=== PATIENT | female | born 1970 | race Caucasian/White ===

== ENCOUNTER 2022-01-09 18:25 | Inpatient (IN) | payer BC, SELFPAY ==
--- NOTE | ~2022-01-09 | XR_ITS ---
EXAMINATION: XR chest 1V portable DATE: 01/14/2022 08:07 INDICATION: COVID-19 pneumonia. TECHNIQUE: A single frontal view of the chest was obtained. COMPARISON: Chest single view 01/10/2022 FINDINGS: There are airspace opacities throughout the lungs bilaterally. No pleural effusion or pneum othorax. The heart size is normal. A right upper extremity peripherally inserted central venous luciano ter (PICC) is seen with tip at the superior cavoatrial junction. Surgical clips in the right upper qu adrant are likely from cholecystectomy. Bilateral breast implants are noted. IMPRESSION: 1. Diffuse lung disease with mild worsening on the right, consistent with pneumonia versus pulmonary edema. Reviewed, dictated and finalized at location A. LARSHIP COUNSELOR IMPRESSION: 1. Diffuse lung disease with mild worsening on the right, consistent with pneum onia versus pulmonary edema.
--- NOTE | ~2022-01-09 | XR_ITS ---
EXAMINATION: XR chest PICC line DATE: 01/10/2022 18:25 INDICATION: Central line adjustment. TECHNIQUE: A single frontal view of the chest was obtained on 2 radiographs. COMPARISON: Chest single view at 6:03 PM FINDINGS: There are airspace and interstitial opacities throughout the lungs bilaterally. No pleural effusion or pneumothorax. The heart size is normal. A right upper extremity peripherally inserted micki tral venous catheter (PICC) is seen with tip in the superior vena cava. Surgical clips in the right u pper quadrant are likely from cholecystectomy. IMPRESSION: 1. PICC tip in the superior vena cava. 2. Stable diffuse lung disease, consistent with pulmonary edema versus pneumonia. Reviewed, dictated and finalized at location E. RY DRIER FEEDER IMPRESSION: 1. PICC tip in the superior vena cava. 2. Stable diffuse lung disease, consistent with pulmonary edema versus pneumoni a.
--- NOTE | ~2022-01-09 | XR_ITS ---
XR chest 1V portable 01/27/2022 05:20 Indication: CovidPneumonia Procedure: AP portable chest Comparison: Comparison to multiple prior studies sequentially, with oldest reviewed study dated 01/14. Findings: PICC line tip in the SVC. Diffuse bilateral airspace disease unchanged. No significant effu erica or pneumothorax. No acute osseous abnormality. There are cholecystectomy clips. Impression: 1: Stable diffuse bilateral airspace disease, consistent with pneumonia. Reviewed, dictated and finalized at location A. GE INSTRUCTOR Impression: 1: Stable diffuse bilateral airspace disease, consistent with pneumonia.
--- NOTE | ~2022-01-09 | CT_ITS ---
EXAMINATION: CTA chest PE protocol DATE: 01/15/2022 12:26 INDICATION: Worsening shortness of breath TECHNIQUE: Computed tomography angiography (CTA) of the chest was performed with 100 mL Omnipaque-350 intravenous contrast timed to evaluate the pulmonary arteries. Coronal maximum intensity projection 3D-reconstructions were created by the technologist. The dose-length product (DLP) was 300.97 mGy-cm. Automated exposure control and iterative reconstruction technique were employed. COMPARISON: None. FINDINGS: The pulmonary arteries are well-opacified. No pulmonary embolism is identified. There are w idespread groundglass and airspace opacities throughout all lung zones with continued interval worsen ing. Bilateral breast implants are noted. The heart size is normal. There is no pleural effusion or p neumothorax. A right upper extremity PICC ends with its tip in the distal superior vena cava. There i s mild mediastinal and bilateral hilar lymphadenopathy. There are areas of scarring in the left kidne y. There is an age-indeterminate burst fracture of T12 with minimal retropulsion of fracture fragment s. IMPRESSION: 1. Diffuse lung disease, consistent with pneumonia and/or pulmonary edema and/or acute respiratory di stress syndrome (ARDS). 2. No pulmonary embolus identified. Reviewed, dictated and finalized at location A. ICAL ANALYTICAL SAMPLER IMPRESSION: 1. Diffuse lung disease, consistent with pneumonia and/or pulmonary edema and/o r acute respiratory distress syndrome (ARDS). 2. No pulmonary embolus identified.
--- NOTE | ~2022-01-09 | XR_ITS ---
EXAMINATION: XR chest 1V portable DATE: 01/09/2022 19:02 INDICATION: Shortness of breath. TECHNIQUE: A single frontal view of the chest was obtained. COMPARISON: None. FINDINGS: There are airspace opacities in all lung zones bilaterally. No pleural effusion or pneumoth orax. The heart size is normal. Surgical clips in the right upper quadrant are likely from cholecyste ctomy. IMPRESSION: 1. Diffuse lung disease, consistent with pulmonary edema versus pneumonia. Reviewed, dictated and finalized at location E. RTRAIN CONTROL SYSTEMS ENGINEER
--- NOTE | ~2022-01-09 | XR_ITS ---
EXAMINATION: XR chest PICC line DATE: 01/10/2022 18:25 INDICATION: Central line placement. TECHNIQUE: A single frontal view of the chest was obtained. COMPARISON: Chest single view 11/08/2022 FINDINGS: There are airspace and interstitial opacities throughout the lungs bilaterally. No pleural effusion or pneumothorax. The heart size is normal. A right upper extremity peripherally inserted micki tral venous catheter (PICC) is seen with tip in the proximal right atrium. Surgical clips in the righ t upper quadrant are likely from cholecystectomy. IMPRESSION: 1. PICC tip in the proximal right atrium. 2. Stable diffuse lung disease, consistent with pulmonary edema versus pneumonia. Reviewed, dictated and finalized at location E. SURGEON IMPRESSION: 1. PICC tip in the proximal right atrium. 2. Stable diffuse lung disease, consistent with pulmonary edema versus pneumoni a.
--- NOTE | ~2022-01-09 | XR_ITS ---
EXAMINATION: XR chest 1V portable INDICATION: COVID 19 pneumonia TECHNIQUE: Portable AP chest at 0523 hours COMPARISON: 01/19/2022 FINDINGS: A right upper extremity PICC ends with its tip in the distal superior vena cava. Patchy opa cities persist throughout all lung zones without significant change. There is no pleural effusion or pneumothorax. The cardiomediastinal silhouette is stable. IMPRESSION: 1. Stable diffuse lung disease, consistent with pneumonia and/or pulmonary edema Reviewed, dictated and finalized at location A. HEMICAL MANAGER IMPRESSION: 1. Stable diffuse lung disease, consistent with pneumonia and/or pulmonary desean a
--- NOTE | ~2022-01-09 | XR_ITS ---
EXAMINATION: XR chest 1V portable DATE: 01/22/2022 10:03 INDICATION: Pneumonia TECHNIQUE: frontal view of the chest was obtained. COMPARISON: Chest radiograph dated 01/21/2022 FINDINGS: Slight decrease in the interstitial and airspace opacities throughout both. No pleural effusion or pn eumothorax. The cardiomediastinal silhouette is normal. Right upper extremity peripherally inserted c entral venous catheter (PICC) tip at the caudal superior vena cava. Bilateral breast implants. Liliana cystectomy clips in the right upper quadrant. IMPRESSION: 1. Diffuse bilateral lung disease with slight interval improvement which would favor pulmonary edema over pneumonia although differential would include combined disease. Reviewed, dictated and finalized at location A. PUNCHING MACHINE OPERATOR IMPRESSION: 1. Diffuse bilateral lung disease with slight interval improvement which would favor pulmonary edema over pneumonia although differential would include combin ed disease.
--- NOTE | ~2022-01-09 | US_ITS ---
EXAMINATION: US venous doppler LE RT DATE: 02/02/2022 15:03 INDICATION: Right ankle swelling TECHNIQUE: Puga scale images without and with compression and Doppler images of the right lower extre mity veins were obtained. COMPARISON: None FINDINGS: The right common femoral vein, profunda femoral vein, femoral vein, popliteal vein, peronea l trunk, posterior tibial veins, and greater saphenous vein are patent. IMPRESSION: 1. Patent right lower extremity veins. No evidence of deep venous thrombosis. Reviewed, dictated and finalized at location B. NDER WIND UP TENDER
--- NOTE | ~2022-01-09 | XR_ITS ---
EXAMINATION: XR chest 1V portable EXAM DATE: 01/19/2022 06:00 INDICATION: COVID 19. TECHNIQUE: Portable AP frontal chest x-ray was obtained. Comparison is made to prior examination from 01/14/2022. FINDINGS: There is a right-sided PICC line. There is cardiomegaly. Diffuse bilateral COVID pneumonia appearance unchanged. No pneumothorax or sizable pleural effusion. There are no osseous abnormalities identified. There are cholecystectomy clips. IMPRESSION: Diffuse bilateral COVID pneumonia unchanged. Reviewed, dictated and finalized at location A. RIFUGAL CHILLER TECHNICIAN
--- NOTE | ~2022-01-09 | XR_ITS ---
EXAMINATION: XR chest 1V portable EXAM DATE: 01/30/2022 13:58 INDICATION: Verify Existing PICC Placement. TECHNIQUE: Portable AP frontal chest x-ray was obtained. Comparison is made to prior examination from 01/27/2022. FINDINGS: There is a right-sided PICC line in position. There is extensive bilateral pneumonia unchan ged. No pneumothorax or pleural effusions. There are cholecystectomy clips. There are no osseous abno rmalities identified. IMPRESSION: PICC line in position. Diffuse pneumonia unchanged. Reviewed, dictated and finalized at location B. LANCE INTERPRETER/TRANSLATOR
[2022-01-09] MEDS: ALBUTEROL SULFATE (*SP) INHALER 2 PUFF INHALATION (02:50)
[2022-01-09 18:00] VITALS: O2SAT 91
--- NOTE | 2022-01-09 18:05 | ADMGEN ---
This patient, Tati Ridley, was admitted to IMU Room 209-01. Patient/family oriented to hospital policies and general routines including ID bracelet, bed and alarms, visiting hours, pain management, procedures, bathroom and other care routines, personal items, smoking policy, room service/diet, and visiting hours. Information on how to activate the Rapid Response Team has been discussed. Patient/Family are encouraged to report perceived risks to care and to ask questions if they do not understand what they are told or what they should do.
[2022-01-09 18:10] VITALS: BP 128/57; PULSE 92; RESP 18; TEMP 36.7; O2SAT 90
--- NOTE | 2022-01-09 18:24 | PM.IMHP ---
H&P: HPI History of Present Illness Date/Time: 01/09/22 18:00 This is a 51 year old female with a history of htn. The patient stated that she was tested positve for covid approximately 5 days ago and she was sent home from [facility] that day with azithromycin, steroids, and will finish send with codeine. The patient stated that she felt like she was getting better on these medication and then yesterday she became more short of breath she stated she could not catch her breath. So she decided to go to [facility]. The patient initially was placed on a BiPAP with the settings of 14/7. They attempted to wean her down to 10/4 on the BiPAP. And the patient was wanting to eat and drink so they placed her on Airvo at 60%. The patient was tolerating that well. However it was reported that they do not have any ICU and they feel that the patient may continue to get worse. She was given Zosyn for due to a white count of 19.5. Her chest x-ray was read as bilateral infiltrates. Patient also had a slight bump in her troponins of 0.060, 0.090, and 0.108. Patient's white count as noted above was 19.5 today however yesterday was 35.5. Patient's INR is 2.0. The patient is currently on Eliquis for a history of blood clots to her left arm. Patient easily desats with any type of movement. Pinzon catheter was attempted at the outside facility. Patient also had albuterol inhaler at home as well as Ativan. The patient has been fully vaccinated and had the booster of the Smart Voicemail does. Her pH initially was 7.37, pCO2 of 29, PO2 was 64, bicarb is 16. I did receive a report from Dr. Coffey at [facility]. The patient does have a history of asthma with COPD. The patient was started on Decadron and REM does severe and Zosyn at the outside facility. Patient is being admitted to inpatient IMU on the date of service of 01/09/2022. Chief Complaint: COVID pneumonia with hypoxia. Review of Systems Review of Systems: All systems reviewed & are unremarkable except as noted in HPI and below Constitutional: Constitutional: Reports as per HPI and Reports no additional constitutional complaints Eyes: Eyes: Reports as per HPI and Reports no additional eye complaints ENT: Reports system reviewed and no additional complaints, except as documented and Reports Normal hearing present Cardiovascular: Cardiovascular: Reports no additional cardiovascular complaints Respiratory: Respiratory: Reports no additional respiratory complaints and Reports no additional respiratory complaints Gastrointestinal: Gastrointestinal: Reports as per HPI and Reports no additional gastrointestinal complaints Musculoskeletal: Musculoskeletal: Reports no additional musculoskeletal complaints Integumentary/Breasts: Skin/Breast: Reports system reviewed and no additional complaints, except as docu and Reports as per HPI Neurologic: Reports system reviewed and no additional complaints, except as documented, Reports as per HPI and Reports Normal hearing present Psychiatric: Psychiatric: Reports no additional psychiatric complaints and Reports as per HPI Endocrine: Endocrine: Reports no additional endocrine complaints Hematologic/Lymphatic: Hematologic/Lymphatic: Reports no additional hematologic/lymphatic complaints Allergic/Immunologic: Allergic/Immunologic: Reports no additional allergic/immunologic complaints [facility] Past Medical History Medical History (Updated 01/09/22 @ 18:51 by Bianka Perez NP) COPD with asthma Gastroesophageal reflux disease History of pancreatitis Hypertension Migraines Thrombosis of upper extremity With thrombectomy Surgical History Surgical History (Updated 01/09/22 @ 18:51 by Bianka Perez NP) History of breast augmentation Hx laparoscopic cholecystectomy Family History Family History (Updated 01/09/22 @ 18:52 by Bianka Perez NP) Mother Asthma Rheumatoid arthritis Father Asthma Chronic obstructive pulmonary
[2022-01-09 18:28] VITALS: O2SAT 90
[2022-01-09 18:36] VITALS: BMI 26.9
[2022-01-09 20:00] VITALS: BP 132/78; PULSE 85; PULSE 86; RESP 28; TEMP 36.5; O2SAT 100; O2SAT 93
[2022-01-09 20:11] LABS: Basophils Absolute Auto 0.1 K/mm3 (0.0-0.1); Basophils Percent Auto 0.6 % (0.2-1.2); Eosinophils Percent Auto 0.2 % (0-4.4); Hematocrit 34.6 % (37.0-47.0); Immature Granulocyte Absolute 1.45 K/mm3 (0.00-0.031); Immature Granulocyte Percent A 7.9 % (0-0.5); Lymphocytes Absolute Auto 2.18 K/mm3 (0.9-3.2); Lymphocytes Percent Auto 11.9 % (18.3-44.2); Mean Corpuscular HGB Conc 34.7 g/dl (32-36); Mean Corpuscular Hemoglobin 30.2 pg (26-34); Mean Corpuscular Volume 86.9 fl (80-100); Mean Platelet Volume 8.9 fl (7.4-10.4); Monocytes Absolute Auto 0.5 K/mm3 (0.1-0.6); Monocytes Percent Auto 2.9 % (2.6-8.5); Neutrophils Percent Auto 76.5 % (45.5-73.1); Nucleated Red Blood Cells Absolute Auto 0.1 K/mm3 (0.0-0.012); Nucleated Red Blood Cells Perc 0.4 % (0.0-0.2); Platelet Count Result 391 k/mm3 (150-375); Red Blood Count 3.98 M/mm3 (4.2-5.4); Red Cell Distribution Width 14.4 % (11.5-14.5); White Blood Count 18.3 K/mm3 (4.5-10.0)
[2022-01-09 20:15] LABS: INR 1.9; Lactic Acid Reflex 1.2 mmol/L (0.7-2.1); Prothrombin Time 21.5 Seconds (11.1-14.7)
[2022-01-09 20:55] LABS: Alanine Aminotransferase 58 U/L (4-35); Albumin Level 3.6 g/dL (3.5-5.1); Alkaline Phosphatase 374 U/L (38-126); Anion Gap 10 mmol/L (8-16); Aspartate Amino Transferase 124 U/L (14-36); Bilirubin,Total 0.9 mg/dL (0.2-1.3); Blood Urea Nitrogen 21 mg/dL (7-17); Calcium 9.1 mg/dL (8.4-10.2); Carbon Dioxide 19 mmol/L (22-30); Chloride 106 mmol/L (98-107); Estimated CRCL calculation 72 ml/min; Estimated Glomerular Filt Rate > 60; Glucose 95 mg/dL (65-110); Magnesium 2.3 mg/dL (1.6-2.3); Potassium 4.8 mmol/L (3.4-5.0); Sodium 135 mmol/L (137-145)
[2022-01-09] MEDS: cloNIDine HCL 0.2 MG TABLET PO (21:35)
[2022-01-09] MEDS: APIXABAN 5 MG TABLET PO (21:35)
[2022-01-09] MEDS: MELATONIN 5 MG TABLET 10 MG PO (21:35)
[2022-01-09] MEDS: LOSARTAN POTASSIUM 100 MG TABLET PO (21:36)
[2022-01-09] MEDS: PANTOPRAZOLE SODIUM IV 40 MG VIAL IV PUSH (21:36)
[2022-01-09] MEDS: MAGNESIUM SULF 2 GM/WATER 50ML 2 GM/50 ML BAG IVPB (21:37)
[2022-01-09] MEDS: hydrOXYzine pamoate 25 MG CAPSULE 50 MG PO (21:54)
[2022-01-10] VITALS (13 sets, daily range): BP systolic 106–154; BP diastolic 65–87; PULSE 73–93; RESP 18–26; TEMP 36.3–37; O2SAT 93–99
[2022-01-10] MEDS: ALBUTEROL SULFATE (*SP) INHALER 2 PUFF INHALATION ×4 (02:56→20:16)
[2022-01-10 05:36] LABS: Basophils Absolute Auto 0.1 K/mm3 (0.0-0.1); Basophils Percent Auto 0.4 % (0.2-1.2); Eosinophils Percent Auto 0.1 % (0-4.4); Hematocrit 28.6 % (37.0-47.0); Hemoglobin 10.1 g/dL (12.0-15.0); Immature Granulocyte Absolute 1.05 K/mm3 (0.00-0.031); Immature Granulocyte Percent A 6.5 % (0-0.5); Lymphocytes Percent Auto 10.6 % (18.3-44.2); Mean Corpuscular HGB Conc 35.3 g/dl (32-36); Mean Corpuscular Volume 87.7 fl (80-100); Mean Platelet Volume 8.6 fl (7.4-10.4); Monocytes Absolute Auto 0.6 K/mm3 (0.1-0.6); Monocytes Percent Auto 3.6 % (2.6-8.5); Neutrophils Absolute Auto 12.7 K/mm3 (1.3-6.7); Neutrophils Percent Auto 78.8 % (45.5-73.1); Nucleated Red Blood Cells Perc 0.2 % (0.0-0.2); Platelet Count Result 292 k/mm3 (150-375); Red Blood Count 3.26 M/mm3 (4.2-5.4); Red Cell Distribution Width 14.3 % (11.5-14.5); White Blood Count 16.1 K/mm3 (4.5-10.0)
[2022-01-10 05:47] LABS: Lactic Acid Reflex 0.8 mmol/L (0.7-2.1)
[2022-01-10 05:48] LABS: Alanine Aminotransferase 47 U/L (4-35); Albumin Level 2.8 g/dL (3.5-5.1); Alkaline Phosphatase 290 U/L (38-126); Anion Gap 6 mmol/L (8-16); Aspartate Amino Transferase 92 U/L (14-36); Bilirubin,Total 0.7 mg/dL (0.2-1.3); Blood Urea Nitrogen 21 mg/dL (7-17); Calcium 8.3 mg/dL (8.4-10.2); Carbon Dioxide 19 mmol/L (22-30); Chloride 106 mmol/L (98-107); Estimated CRCL calculation 72 ml/min; Estimated Glomerular Filt Rate > 60; Glucose 122 mg/dL (65-110); Potassium 4.4 mmol/L (3.4-5.0); Sodium 131 mmol/L (137-145)
[2022-01-10 05:57] LABS: INR 2.1; Prothrombin Time 23.1 Seconds (11.1-14.7)
[2022-01-10] MEDS: guaiFENesin/DEXTROMETHORPHAN 10 ML UDC PO (07:22)
[2022-01-10] MEDS: PANTOPRAZOLE SODIUM IV 40 MG VIAL IV PUSH ×2 (08:58→20:27)
[2022-01-10] MEDS: LORazepam INJ (*CRX) 2 MG/ML VIAL 0.5 MG IV PUSH ×3 (08:59→20:35)
[2022-01-10] MEDS: amLODIPine BESYLATE 5 MG TABLET PO (09:00)
[2022-01-10] MEDS: cloNIDine HCL 0.2 MG TABLET PO ×3 (09:00→20:29)
[2022-01-10] MEDS: APIXABAN 5 MG TABLET PO ×2 (09:00→20:29)
[2022-01-10] MEDS: PSYLLIUM POWDER PACKET 1 PACKET PO (09:01)
[2022-01-10] MEDS: FLUTICASONE PROPIONATE 0.05% NA SPR 16 GM BTL (*BKC) 2 SPRAY NASAL (09:01)
[2022-01-10] MEDS: BARICITINIB 2 MG TABLET 4 MG PO (10:49)
[2022-01-10] MEDS: hydrOXYzine pamoate 25 MG CAPSULE 50 MG PO ×2 (13:00→20:37)
[2022-01-10 13:15] LABS: Appearance Urine Clear (Clear); Bilirubin Urine Negative (Negative); Blood Urine Negative (Negative); Color Urine Yellow (Yellow); Glucose Urine UA Negative (Negative); Ketones Urine Negative (Negative); Leukocyte Esterase Ur Negative LEU/UL (Negative); Nitrate Urine Negative (Negative); Protein Urine Negative (Negative); Specific Grav Ur 1.015 (1.001-1.035); Urobilinogen Urine 0.2 mg/dL (<2.0); pH Urine 6.5 (5.0-9.0)
[2022-01-10 13:19] LABS: Add Urine Microscopic? NO
[2022-01-10] MEDS: REMDESIVIR 100 MG/NS 250 ML 100 MG/250 ML BAG 250 MG IVPB (14:14)
--- NOTE | 2022-01-10 15:08 | PM.IMPN ---
Progress Note: A&P Assessment and Plan (1) Pneumonia due to COVID-19 virus: Code(s): U07.1 - COVID-19; J12.82 - Pneumonia due to coronavirus disease 2018 Status: Acute Assessment and Plan: Continue remdesivir, Decadron, baricitinib. Continue nebs and guaifenesis for symptomatic relief Ensure Compact TID Prone as tolerated Wean oxygen as tolerated (2) Community acquired pneumonia: Code(s): J18.9 - Pneumonia, unspecified organism Status: Acute Assessment and Plan: Receiving Zosyn (3) Hypertension: Code(s): I10 - Essential (primary) hypertension Status: Chronic Assessment and Plan: Continue with Norvasc, clonidine, losartan, and hydroxyzine 01/10 BP reviewed and adequately controlled (4) Gastroesophageal reflux disease: Code(s): K21.9 - Gastro-esophageal reflux disease without esophagitis Status: Chronic Assessment and Plan: Pantoprazole IV. (5) COPD with asthma: Code(s): J44.9 - Chronic obstructive pulmonary disease, unspecified Status: Chronic Assessment and Plan: I did order a dose of magnesium for her. Continue with inhalers. (6) Thrombosis of upper extremity: Code(s): I82.609 - Acute embolism and thrombosis of unspecified veins of unspecified upper extremity Status: Chronic Assessment and Plan: Previously dx'd Continue Eliquis (7) Migraines: Code(s): G43.909 - Migraine, unspecified, not intractable, without status migrainosus Status: Chronic Assessment and Plan: Abortive therapy prn Subjective Date/time seen: 01/10/22 15:08 Interval history: Admitted with COVID-19 pneumonia and respiratory failure. January 10 visit. On non-rebreather mask and Airvo at 60 L. Weaned down 50 L today. Shortness of breath with minimal exertion. Eating very little because of dyspnea and impaired taste and smell. Denied chest pain or GI/ symptoms otherwise. Review of Systems Review of Systems: All systems reviewed & are unremarkable except as noted in HPI and below Exam Narrative: HEENT: EOMI, PERRL, sclerae nonicteric, pharyngeal mucosa pink and intact NECK: No JVD, adenopathy, or thyromegaly CHEST: Coarse breath sounds. Tachypneic. HEART: NL S1/S2, regular, no murmur ABDOMEN: BS+, soft, nontender, no mass, no bruits EXTREMITIES: No cyanosis, edema, or clubbing NEUROLOGIC: CN intact and symmetric to inspection. MUSCULOSKELETAL: Tone and strength symmetric. PSYCH: Alert. Oriented to person, place, and time. Objective Data Vital Signs Vital Signs: Vital Signs - 24 hr 01/09/22 18:00 01/09/22 18:10 01/09/22 18:28 Temperature 98.0 F Pulse Rate 92 Respiratory Rate 18 Blood Pressure 128/57 L Pulse Oximetry 91 90 90 01/09/22 20:00 01/10/22 00:00 01/10/22 04:00 Temperature 97.7 F 97.9 F 97.4 F L Pulse Rate 86 81 73 Respiratory Rate 28 H 18 26 H Blood Pressure 132/78 115/70 147/87 H Pulse Oximetry 93 98 98 01/10/22 08:00 01/10/22 08:35 01/10/22 08:36 Temperature 98.0 F Pulse Rate 75 93 93 Respiratory Rate 24 H 24 H Blood Pressure 136/78 Pulse Oximetry 99 98 01/10/22 12:00 01/10/22 14:51 Temperature 98.3 F Pulse Rate 89 Respiratory Rate 26 H Blood Pressure 154/83 H Pulse Oximetry 97 94 Intake/Output Intake/Output: Intake & Output 01/07/22 01/08/22 01/09/22 01/10/22 23:59 23:59 23:59 23:59 Intake Total 100 450 Output Total 450 1200 Balance -350 -750 Meds/Results Medications: Active Medications Generic Name Dose Route Start Last Admin Trade Name Jairoq PRN Reason Stop Dose Admin Albuterol 2 puff 01/09/22 20:00 01/10/22 14:50 Albuterol Sulfate (*Sp) Inhaler INHALATION 2 puff Q6HRT LINDA Administration Amlodipine Besylate 5 mg 01/10/22 09:00 01/10/22 09:00 Amlodipine Besylate 5 Mg Tablet PO 5 mg DAILY LINDA Administration Apixaban 5 mg 01/09/22 21:00 01/10/22 09:00 Apixaban 5 Mg Tablet P
[2022-01-10] MEDS: MELATONIN 5 MG TABLET 10 MG PO (20:28)
[2022-01-10] MEDS: CENTRAL LINE FLUSH 10 ML IV PUSH (20:30)
[2022-01-10] MEDS: LOSARTAN POTASSIUM 100 MG TABLET PO (20:30)
[2022-01-11] VITALS (14 sets, daily range): BP systolic 113–140; BP diastolic 64–86; PULSE 77–101; RESP 20–28; TEMP 36.4–37.1; O2SAT 90–99
[2022-01-11] MEDS: ALBUTEROL SULFATE (*SP) INHALER 2 PUFF INHALATION ×4 (02:21→20:26)
[2022-01-11] MEDS: LORazepam INJ (*CRX) 2 MG/ML VIAL 0.5 MG IV PUSH ×3 (02:42→22:08)
[2022-01-11] MEDS: hydrOXYzine pamoate 25 MG CAPSULE 50 MG PO ×2 (03:57→10:48)
[2022-01-11] MEDS: CENTRAL LINE FLUSH 10 ML IV PUSH ×3 (05:33→21:39)
[2022-01-11 05:46] LABS: Basophils Percent Auto 0.2 % (0.2-1.2); Eosinophils Absolute Auto 0.1 K/mm3 (0-0.3); Eosinophils Percent Auto 0.5 % (0-4.4); Immature Granulocyte Absolute 0.88 K/mm3 (0.00-0.031); Lymphocytes Absolute Auto 1.43 K/mm3 (0.9-3.2); Lymphocytes Percent Auto 8.1 % (18.3-44.2); Mean Corpuscular HGB Conc 34.5 g/dl (32-36); Mean Corpuscular Hemoglobin 30.4 pg (26-34); Mean Corpuscular Volume 88.1 fl (80-100); Mean Platelet Volume 8.6 fl (7.4-10.4); Monocytes Absolute Auto 0.6 K/mm3 (0.1-0.6); Monocytes Percent Auto 3.2 % (2.6-8.5); Neutrophils Absolute Auto 14.6 K/mm3 (1.3-6.7); Nucleated Red Blood Cells Perc 0.1 % (0.0-0.2); Platelet Count Result 242 k/mm3 (150-375); Red Blood Count 3.29 M/mm3 (4.2-5.4); Red Cell Distribution Width 14.8 % (11.5-14.5); White Blood Count 17.6 K/mm3 (4.5-10.0)
[2022-01-11] MEDS: guaiFENesin/DEXTROMETHORPHAN 10 ML UDC PO (05:52)
[2022-01-11 05:55] LABS: Alanine Aminotransferase 48 U/L (4-35); Aspartate Amino Transferase 92 U/L (14-36); Estimated CRCL calculation 81 ml/min; Estimated Glomerular Filt Rate > 60
[2022-01-11 05:59] LABS: INR 1.8; Prothrombin Time 20.4 Seconds (11.1-14.7)
--- NOTE | 2022-01-11 10:20 | PM.IMPN ---
Progress Note: A&P Assessment and Plan (1) Pneumonia due to COVID-19 virus: Code(s): U07.1 - COVID-19; J12.82 - Pneumonia due to coronavirus disease 2018 Status: Acute Assessment and Plan: Continue remdesivir, Decadron, baricitinib. Continue nebs and guaifenesis for symptomatic relief Ensure Compact TID Prone as tolerated Wean oxygen as tolerated (2) Community acquired pneumonia: Code(s): J18.9 - Pneumonia, unspecified organism Status: Acute Assessment and Plan: Receiving Zosyn (3) Hypertension: Code(s): I10 - Essential (primary) hypertension Status: Chronic Assessment and Plan: Continue with Norvasc, clonidine, losartan, and hydroxyzine 01/10 BP reviewed and adequately controlled (4) Gastroesophageal reflux disease: Code(s): K21.9 - Gastro-esophageal reflux disease without esophagitis Status: Chronic Assessment and Plan: Pantoprazole IV. (5) COPD with asthma: Code(s): J44.9 - Chronic obstructive pulmonary disease, unspecified Status: Chronic Assessment and Plan: I did order a dose of magnesium for her. Continue with inhalers. (6) Thrombosis of upper extremity: Code(s): I82.609 - Acute embolism and thrombosis of unspecified veins of unspecified upper extremity Status: Chronic Assessment and Plan: Previously dx'd Continue Eliquis (7) Migraines: Code(s): G43.909 - Migraine, unspecified, not intractable, without status migrainosus Status: Chronic Assessment and Plan: Abortive therapy prn Subjective Date/time seen: 01/11/22 10:20 Interval history: 01/11: Tight in chest. Short of breath with any exertion. Poor appetite. But tolerating supplements. Review of Systems Review of Systems: All systems reviewed & are unremarkable except as noted in HPI and below Exam Narrative: HEENT: EOMI, PERRL, sclerae nonicteric, pharyngeal mucosa pink and intact NECK: No JVD, adenopathy, or thyromegaly CHEST: Coarse breath sounds. Tachypneic. HEART: NL S1/S2, regular, no murmur ABDOMEN: BS+, soft, nontender, no mass, no bruits EXTREMITIES: No cyanosis, edema, or clubbing NEUROLOGIC: CN intact and symmetric to inspection. MUSCULOSKELETAL: Tone and strength symmetric. PSYCH: Alert. Oriented to person, place, and time. Objective Data Vital Signs Vital Signs: Vital Signs - 24 hr 01/10/22 12:00 01/10/22 14:51 01/10/22 16:00 Temperature 98.3 F 98.6 F Pulse Rate 79 89 Respiratory Rate 26 H 20 Blood Pressure 154/83 H 111/77 Pulse Oximetry 97 94 93 01/10/22 18:00 01/10/22 20:00 01/10/22 20:25 Temperature 97.9 F Pulse Rate 82 84 Respiratory Rate 20 Blood Pressure 106/67 Pulse Oximetry 95 96 01/10/22 22:00 01/10/22 23:34 01/11/22 00:00 Temperature 97.7 F Pulse Rate 76 78 77 Respiratory Rate 22 H Blood Pressure 113/65 Pulse Oximetry 98 95 01/11/22 02:00 01/11/22 04:00 01/11/22 06:00 Temperature 97.6 F Pulse Rate 88 90 82 Respiratory Rate 24 H Blood Pressure 127/70 Pulse Oximetry 97 01/11/22 08:00 01/11/22 08:23 Temperature 98.0 F Pulse Rate 90 Respiratory Rate 24 H Blood Pressure 117/64 Pulse Oximetry 94 96 Intake/Output Intake/Output: Intake & Output 01/08/22 01/09/22 01/10/22 01/11/22 23:59 23:59 23:59 23:59 Intake Total 100 750 50 Output Total 450 2300 1000 Balance -350 1550 -950 Meds/Results Medications: Active Medications Generic Name Dose Route Start Last Admin Trade Name Jairoq PRN Reason Stop Dose Admin Albuterol 2 puff 01/09/22 20:00 01/11/22 08:12 Albuterol Sulfate (*Sp) Inhaler INHALATION 2 puff Q6HRT LINDA Administration Amlodipine Besylate 5 mg 01/10/22 09:00 01/10/22 09:00 Amlodipine Besylate 5 Mg Tablet PO 5 mg DAILY LINDA Administration Apixaban 5 mg 01/09/22 21:00 01/10/22 20:29 Apixaban 5 Mg Tablet PO 5 mg Q12HR LINDA Administration Baricitinib 4 mg
[2022-01-11] MEDS: REMDESIVIR 100 MG/NS 250 ML 100 MG/250 ML BAG 250 MG IVPB (10:45)
[2022-01-11] MEDS: cloNIDine HCL 0.2 MG TABLET PO ×3 (10:47→18:00)
[2022-01-11] MEDS: amLODIPine BESYLATE 5 MG TABLET PO (10:47)
[2022-01-11] MEDS: APIXABAN 5 MG TABLET PO ×2 (10:48→21:36)
[2022-01-11] MEDS: PANTOPRAZOLE SODIUM IV 40 MG VIAL IV PUSH ×2 (10:48→21:36)
[2022-01-11] MEDS: FLUTICASONE PROPIONATE 0.05% NA SPR 16 GM BTL (*BKC) 2 SPRAY NASAL (10:49)
[2022-01-11] MEDS: BARICITINIB 2 MG TABLET 4 MG PO (10:50)
[2022-01-11] MEDS: MELATONIN 5 MG TABLET 10 MG PO (21:35)
[2022-01-11] MEDS: LOSARTAN POTASSIUM 100 MG TABLET PO (21:37)
[2022-01-12] VITALS (18 sets, daily range): BP systolic 112–165; BP diastolic 48–86; PULSE 76–97; RESP 22–28; TEMP 36.4–37.1; O2SAT 90–97; BMI 27.3
[2022-01-12] MEDS: ALBUTEROL SULFATE (*SP) INHALER 2 PUFF INHALATION ×4 (02:38→19:35)
[2022-01-12 06:12] LABS: Basophils Percent Auto 0.2 % (0.2-1.2); Eosinophils Absolute Auto 0.5 K/mm3 (0-0.3); Eosinophils Percent Auto 2.4 % (0-4.4); Hematocrit 29.4 % (37.0-47.0); Hemoglobin 10.2 g/dL (12.0-15.0); Immature Granulocyte Absolute 0.47 K/mm3 (0.00-0.031); Immature Granulocyte Percent A 2.4 % (0-0.5); Lymphocytes Absolute Auto 1.52 K/mm3 (0.9-3.2); Lymphocytes Percent Auto 7.7 % (18.3-44.2); Mean Corpuscular HGB Conc 34.7 g/dl (32-36); Mean Corpuscular Hemoglobin 30.7 pg (26-34); Mean Corpuscular Volume 88.6 fl (80-100); Mean Platelet Volume 8.8 fl (7.4-10.4); Monocytes Absolute Auto 0.4 K/mm3 (0.1-0.6); Monocytes Percent Auto 1.8 % (2.6-8.5); Neutrophils Absolute Auto 16.9 K/mm3 (1.3-6.7); Neutrophils Percent Auto 85.5 % (45.5-73.1); Platelet Count Result 185 k/mm3 (150-375); Red Blood Count 3.32 M/mm3 (4.2-5.4); Red Cell Distribution Width 14.9 % (11.5-14.5); White Blood Count 19.7 K/mm3 (4.5-10.0)
[2022-01-12] MEDS: LORazepam INJ (*CRX) 2 MG/ML VIAL 0.5 MG IV PUSH ×3 (06:20→20:35)
[2022-01-12 06:23] LABS: INR 1.8
[2022-01-12 06:26] LABS: Alanine Aminotransferase 58 U/L (4-35); Alkaline Phosphatase 282 U/L (38-126); Anion Gap 5 mmol/L (8-16); Aspartate Amino Transferase 110 U/L (14-36); Bilirubin,Total 1.2 mg/dL (0.2-1.3); Blood Urea Nitrogen 10 mg/dL (7-17); CRP 2.9 mg/dL (<1.0); Calcium 8.5 mg/dL (8.4-10.2); Carbon Dioxide 26 mmol/L (22-30); Chloride 97 mmol/L (98-107); Estimated CRCL calculation 109 ml/min; Estimated Glomerular Filt Rate > 60; Glucose 106 mg/dL (65-110); Lactate Dehydrogenase 1502 U/L (313-618); Potassium 3.7 mmol/L (3.4-5.0); Sodium 128 mmol/L (137-145)
[2022-01-12] MEDS: guaiFENesin/DEXTROMETHORPHAN 10 ML UDC PO (06:49)
[2022-01-12] MEDS: PANTOPRAZOLE SODIUM IV 40 MG VIAL IV PUSH ×2 (09:37→20:33)
[2022-01-12] MEDS: cloNIDine HCL 0.2 MG TABLET PO ×3 (09:37→16:39)
[2022-01-12] MEDS: hydrOXYzine pamoate 25 MG CAPSULE 50 MG PO (09:37)
[2022-01-12] MEDS: CENTRAL LINE FLUSH 10 ML IV PUSH ×3 (09:38→20:35)
[2022-01-12] MEDS: APIXABAN 5 MG TABLET PO ×2 (09:38→20:33)
[2022-01-12] MEDS: amLODIPine BESYLATE 5 MG TABLET PO (09:38)
[2022-01-12] MEDS: FLUTICASONE PROPIONATE 0.05% NA SPR 16 GM BTL (*BKC) 2 SPRAY NASAL (09:39)
[2022-01-12] MEDS: PSYLLIUM POWDER PACKET 1 PACKET PO (09:39)
[2022-01-12] MEDS: BARICITINIB 2 MG TABLET 4 MG PO (10:16)
[2022-01-12] MEDS: REMDESIVIR 100 MG/NS 250 ML 100 MG/250 ML BAG 250 MG IVPB (10:16)
--- NOTE | 2022-01-12 14:39 | PM.IMPN ---
Progress Note: A&P Assessment and Plan (1) Pneumonia due to COVID-19 virus: Code(s): U07.1 - COVID-19; J12.82 - Pneumonia due to coronavirus disease 2019 Status: Acute (2) Community acquired pneumonia: Code(s): J18.9 - Pneumonia, unspecified organism Status: Acute (3) Hypertension: Code(s): I10 - Essential (primary) hypertension Status: Chronic (4) Gastroesophageal reflux disease: Code(s): K21.9 - Gastro-esophageal reflux disease without esophagitis Status: Chronic (5) COPD with asthma: Code(s): J44.9 - Chronic obstructive pulmonary disease, unspecified Status: Chronic (6) Migraines: Code(s): G43.909 - Migraine, unspecified, not intractable, without status migrainosus Status: Chronic (7) Thrombosis of upper extremity: Code(s): I82.609 - Acute embolism and thrombosis of unspecified veins of unspecified upper extremity Status: Chronic Additional Plan 01/12/22 cont eliquis cont dexamethasone, baricitinib, and remdesivir antitussive high levels of oxygen required and pt ill appearing despite appropriate care c/s pulm for further recs Subjective Date/time seen: 01/12/22 14:39 pt appears to be w increased work of breathing at rest. O2 improves when NRBM placed properly on her face pt appears ill, but voices no complaints to me Exam Narrative: HEENT: EOMI, sclerae nonicteric, pharyngeal mucosa pink and intact NECK: No JVD, adenopathy, or thyromegaly CHEST: Coarse breath sounds. tachypneic increased work of breathing O2 sat 91% HEART: NL S1/S2, tachycardia ABDOMEN: BS+, soft, nontender, no mass, no bruits EXTREMITIES: No cyanosis, edema, or clubbing NEUROLOGIC: CN intact no focal neurological deficits appreciated MUSCULOSKELETAL: Tone and strength symmetric. PSYCH: mood and affect congruent Objective Data Vital Signs Vital Signs: Vital Signs - 24 hr 01/11/22 16:00 01/11/22 20:00 01/11/22 20:26 Temperature 98.4 F 97.9 F Pulse Rate 82 90 78 Respiratory Rate 22 H 20 Blood Pressure 113/71 124/80 Pulse Oximetry 99 97 97 01/11/22 21:14 01/11/22 22:00 01/11/22 23:45 Temperature 98.8 F Pulse Rate 84 101 H Respiratory Rate 28 H Blood Pressure 140/86 Pulse Oximetry 93 90 01/12/22 00:00 01/12/22 02:38 01/12/22 03:46 Temperature 97.8 F Pulse Rate 90 80 82 Respiratory Rate 22 H Blood Pressure 117/48 L Pulse Oximetry 93 93 01/12/22 04:00 01/12/22 06:00 01/12/22 08:00 Temperature 98.7 F Pulse Rate 88 78 94 Respiratory Rate 28 H Blood Pressure 165/86 H Pulse Oximetry 97 01/12/22 10:00 01/12/22 12:00 01/12/22 12:43 Temperature 98.7 F Pulse Rate 94 92 Respiratory Rate 28 H Blood Pressure 119/74 Pulse Oximetry 92 93 01/12/22 14:00 01/12/22 14:25 Temperature Pulse Rate 96 Respiratory Rate Blood Pressure Pulse Oximetry 95 Intake/Output Intake/Output: Intake & Output 01/09/22 01/10/22 01/11/22 01/12/22 23:59 23:59 23:59 23:59 Intake Total 799 701 2051 840 Output Total 450 2300 1900 1350 Balance -350 -1550 -760 -510 Meds/Results Medications: Active Medications Generic Name Dose Route Start Last Admin Trade Name Freq PRN Reason Stop Dose Admin Albuterol 2 puff 01/09/22 20:00 01/12/22 14:15 Albuterol Sulfate (*Sp) Inhaler INHALATION 2 puff Q6HRT LINDA Administration Amlodipine Besylate 5 mg 01/10/22 09:00 01/12/22 09:38 Amlodipine Besylate 5 Mg Tablet PO 5 mg DAILY LINDA Administration Apixaban 5 mg 01/09/22 21:00 01/12/22 09:38 Apixaban 5 Mg Tablet PO 5 mg Q12HR LINDA Administration Baricitinib 4 mg 01/10/22 11:00 01/12/22 10:16 Baricitinib 2 Mg Tablet PO 01/22/22 11:01 4 mg DAILY@11 LINDA Administration Clonidine HCl 0.2 mg 01/09/22 19:10 01/12/22 12:37 Clonidine Hcl 0.2 Mg Tablet PO 0.2 mg TID LINDA Administration Dexamethasone Sodium Phosphate 6 mg 01/09/22 19:10 01/12/22 09:37 Dexa
[2022-01-12] MEDS: LOSARTAN POTASSIUM 100 MG TABLET PO (20:33)
[2022-01-12] MEDS: MELATONIN 5 MG TABLET 10 MG PO (20:34)
[2022-01-13] VITALS (20 sets, daily range): BP systolic 117–153; BP diastolic 63–88; PULSE 66–96; RESP 16–30; TEMP 35.8–36.9; O2SAT 90–99
[2022-01-13] MEDS: ALBUTEROL SULFATE (*SP) INHALER 2 PUFF INHALATION ×3 (01:35→21:03)
[2022-01-13] MEDS: LORazepam INJ (*CRX) 2 MG/ML VIAL 0.5 MG IV PUSH ×4 (02:33→22:57)
[2022-01-13] MEDS: CENTRAL LINE FLUSH 10 ML IV PUSH ×3 (04:27→20:45)
[2022-01-13 05:15] LABS: Basophils Absolute Auto 0.1 K/mm3 (0.0-0.1); Basophils Percent Auto 0.2 % (0.2-1.2); Eosinophils Absolute Auto 0.7 K/mm3 (0-0.3); Eosinophils Percent Auto 2.4 % (0-4.4); Hematocrit 28.5 % (37.0-47.0); Hemoglobin 9.8 g/dL (12.0-15.0); Immature Granulocyte Percent A 2.5 % (0-0.5); Lymphocytes Absolute Auto 1.41 K/mm3 (0.9-3.2); Mean Corpuscular HGB Conc 34.4 g/dl (32-36); Mean Corpuscular Hemoglobin 30.4 pg (26-34); Mean Corpuscular Volume 88.5 fl (80-100); Mean Platelet Volume 9.1 fl (7.4-10.4); Monocytes Absolute Auto 0.4 K/mm3 (0.1-0.6); Monocytes Percent Auto 1.3 % (2.6-8.5); Neutrophils Absolute Auto 25.2 K/mm3 (1.3-6.7); Neutrophils Percent Auto 88.6 % (45.5-73.1); Platelet Count Result 181 k/mm3 (150-375); Red Blood Count 3.22 M/mm3 (4.2-5.4); White Blood Count 28.4 K/mm3 (4.5-10.0)
[2022-01-13 05:22] LABS: INR 1.9; Prothrombin Time 21.5 Seconds (11.1-14.7)
[2022-01-13 05:33] LABS: Alanine Aminotransferase 65 U/L (4-35); Albumin Level 2.9 g/dL (3.5-5.1); Alkaline Phosphatase 268 U/L (38-126); Anion Gap 6 mmol/L (8-16); Aspartate Amino Transferase 91 U/L (14-36); Bilirubin,Total 1.2 mg/dL (0.2-1.3); Blood Urea Nitrogen 9 mg/dL (7-17); Calcium 8.2 mg/dL (8.4-10.2); Carbon Dioxide 26 mmol/L (22-30); Chloride 98 mmol/L (98-107); Estimated CRCL calculation 97 ml/min; Estimated Glomerular Filt Rate > 60; Glucose 95 mg/dL (65-110); Potassium 3.8 mmol/L (3.4-5.0); Sodium 130 mmol/L (137-145)
[2022-01-13 06:24] LABS: Platelet Estimate Adequate (Adequate); Target Cells 1+ (NORMAL)
--- NOTE | 2022-01-13 09:26 | PM.CNPUL ---
Assessment and Plan Assessment and plan (1) Pneumonia due to COVID-19 virus: Code(s): U07.1 - COVID-19; J12.82 - Pneumonia due to coronavirus disease 2019 Status: Acute Assessment and Plan: 51-year-old female with a history of asthma and has had acute respiratory failure related to COVID 19 infection. Patient is requiring high FiO2 to maintain oxygen saturation over 90%. On clinical grounds she stated that breathing seems to be getting better as she has less shortness of breath and less desaturation when moving in bed. On last chest x-ray 3 days ago she had bilateral infiltrates but no pleural effusions. She is on treatment with dexamethasone remdesivir an anti-inflammatory agent for COVID-19 pneumonia. She is also on antibiotic for possible bacterial coinfection. agree with current treatment. Will repeat chest x-ray in a.m., monitor CRP, D-dimers, continue with current anticoagulant. She has no evidence of asthma exacerbation at this point. (2) Hypertension: Code(s): I10 - Essential (primary) hypertension Status: Chronic (3) COPD with asthma: Code(s): J44.9 - Chronic obstructive pulmonary disease, unspecified Status: Chronic History of Present Illness History of Present Illness Consult date: 01/13/22 Chief complaint: COVID PNU Narrative: This 51-year-old female was admitted into the hospital 4 days ago with shortness of breath related to COVID 19 infection. Patient was in her usual state of health until approximately 5 days prior to this admission when she was diagnosed with COVID-19 infection at another hospital. She was then hospitalized and was placed on noninvasive ventilatory support via BiPAP 11/06 and supplemental oxygen. Because her oxygen needs were increasing, the patient [facility]. Currently she has been on high-flow nasal cannula as well as on non-rebreather mask with a saturation over 93%. Current complaints include shortness of breath, cough with clear sputum production. She has no wheezing chest pain palpitations hemoptysis fever or chills. Patient stated that breathing seems to be improving slightly over the last day. She would desaturate with any movement in bed and would experience dyspnea when she came in. She now has less shortness of breath when moving in bed. Her past medical history is significant for asthma for which she had been on short-acting bronchodilators. Patient is a non smoker. She also has a history of upper extremity DVT for which she has been on a direct anticoagulant. She has history of hypertension but no history of heart disease. Most recent chest x-ray showed bilateral infiltrates. Review of Systems Review of Systems: All systems reviewed & are unremarkable except as noted in HPI and below [facility] Past Medical History Medical History (Updated 01/09/22 @ 18:51 by Bianka Perez NP) COPD with asthma Gastroesophageal reflux disease History of pancreatitis Hypertension Migraines Thrombosis of upper extremity With thrombectomy Surgical History Surgical History (Updated 01/09/22 @ 18:51 by Bianka Perez NP) History of breast augmentation Hx laparoscopic cholecystectomy Family History Family History (Updated 01/09/22 @ 18:52 by Bianka Perez NP) Mother Asthma Rheumatoid arthritis Father Asthma Chronic obstructive pulmonary disease Cerebrovascular accident Acute myocardial infarction Sibling Asthma Social History Social History (Updated 01/09/22 @ 18:53 by Bianka Perez NP) Social History: The patient has 1 child. She is not currently working. She used to be a medical clerical assistant. The patient used to smoke for approximately 3 years and she stated she smoked socially. Her significant other Mark serrano is her durable power state attorney for healthcare. Code status full code Years smoked: 3 Smoking status: Former smoker Alcohol intake: unknown Substance u
[2022-01-13] MEDS: PSYLLIUM POWDER PACKET 1 PACKET PO (09:29)
[2022-01-13] MEDS: PANTOPRAZOLE SODIUM IV 40 MG VIAL IV PUSH ×2 (09:30→20:44)
[2022-01-13] MEDS: FLUTICASONE PROPIONATE 0.05% NA SPR 16 GM BTL (*BKC) 2 SPRAY NASAL (09:31)
[2022-01-13] MEDS: amLODIPine BESYLATE 5 MG TABLET PO (09:31)
[2022-01-13] MEDS: APIXABAN 5 MG TABLET PO ×2 (09:31→20:45)
[2022-01-13] MEDS: cloNIDine HCL 0.2 MG TABLET PO ×3 (09:31→16:58)
[2022-01-13] MEDS: REMDESIVIR 100 MG/NS 250 ML 100 MG/250 ML BAG 250 MG IVPB (10:21)
[2022-01-13] MEDS: BARICITINIB 2 MG TABLET 4 MG PO (10:23)
[2022-01-13 10:31] LABS: Alveolar/Arterial O2 Gradient 627.2 mmHg; Base Excess ABG -2.4 mEq/l (+/-2.0); Fractional Inspired Oxygen 100 %; HCO3 ABG 20.7 mEq/l (22.0-26.0); Oxygen Content ABG 13.7 %vol (16.0-22.0); Oxygen Saturation ABG 90.8 % (95.0-100.0); PCO2 ABG 30.2 mmHg (35.0-45.0); PO2 ABG 55.6 mmHg (80.0-100.0); PO2 FiO2 Ratio Arterial Blood 0.56 %; Total Hemoglobin 11.2 g/dL (12.0-18.0); pH ABG 7.454 (7.350-7.450)
[2022-01-13 10:36] LABS: Device NON-REBREATHER MASK; Modified Allen's Test Pass; Oxyhemoglobin 86.8 % THb (90.0-100.0); Site Drawn RIGHT RADIAL
--- NOTE | 2022-01-13 16:30 | PM.IMPN ---
Progress Note: A&P Assessment and Plan (1) Pneumonia due to COVID-19 virus: Code(s): U07.1 - COVID-19; J12.82 - Pneumonia due to coronavirus disease 2018 Status: Acute Assessment and Plan: Continue remdesivir, Decadron, baricitinib. Continue nebs and guaifenesis for symptomatic relief Ensure Compact TID Prone as tolerated Wean oxygen as tolerated (2) Community acquired pneumonia: Code(s): J18.9 - Pneumonia, unspecified organism Status: Acute Assessment and Plan: Receiving Zosyn (3) Hypertension: Code(s): I10 - Essential (primary) hypertension Status: Chronic Assessment and Plan: Continue with Norvasc, clonidine, losartan, and hydroxyzine 01/10 BP reviewed and adequately controlled (4) Gastroesophageal reflux disease: Code(s): K21.9 - Gastro-esophageal reflux disease without esophagitis Status: Chronic Assessment and Plan: Pantoprazole IV. (5) COPD with asthma: Code(s): J44.9 - Chronic obstructive pulmonary disease, unspecified Status: Chronic Assessment and Plan: Continue with inhalers. (6) Migraines: Code(s): G43.909 - Migraine, unspecified, not intractable, without status migrainosus Status: Chronic Assessment and Plan: Abortive therapy prn (7) Thrombosis of upper extremity: Code(s): I82.609 - Acute embolism and thrombosis of unspecified veins of unspecified upper extremity Status: Chronic Assessment and Plan: Previously dx'd Continue Eliquis Additional Plan 01/12/22 cont eliquis cont dexamethasone, baricitinib, and remdesivir antitussive high levels of oxygen required and pt ill appearing despite appropriate care c/s pulm for further recs 01/13/22 pt struggling in mid day abg drawn pt started on BIPAP Subjective Date/time seen: 01/13/22 16:30 Interval history: 01/11: Tight in chest. Short of breath with any exertion. Poor appetite. But tolerating supplements. 01/13: Pt is having some heavy breathing, pt had ABG, pt to start BIPAP today, pt seen by pulmonology earlier in the day Review of Systems Review of Systems: All systems reviewed & are unremarkable except as noted in HPI and below Exam Narrative: Deep breathing NECK: No JVD, adenopathy, or thyromegaly CHEST: Coarse breath sounds. tachypneic HEART: NL S1/S2, tachycardia ABDOMEN: BS+, soft, nontender, no mass, no bruits EXTREMITIES: No cyanosis, edema, or clubbing NEUROLOGIC: CN intact no focal neurological deficits appreciated MUSCULOSKELETAL: Tone and strength symmetric. PSYCH: mood and affect congruent Objective Data Vital Signs Vital Signs: Vital Signs - 24 hr 01/12/22 18:00 01/12/22 19:35 01/12/22 20:00 Temperature 36.4 C Pulse Rate 80 80 Respiratory Rate 22 H Blood Pressure 121/83 Pulse Oximetry 93 90 01/12/22 21:46 01/12/22 23:45 01/12/22 23:48 Temperature 36.9 C Pulse Rate 78 76 80 Respiratory Rate 22 H 22 H Blood Pressure 115/72 Pulse Oximetry 93 93 01/13/22 01:41 01/13/22 03:12 01/13/22 04:00 Temperature 36.3 C L Pulse Rate 96 96 89 Respiratory Rate 22 H 22 H Blood Pressure 117/72 Pulse Oximetry 90 92 01/13/22 05:35 01/13/22 08:00 01/13/22 08:35 Temperature 36.9 C Pulse Rate 90 84 88 Respiratory Rate 20 Blood Pressure 153/70 H Pulse Oximetry 99 95 01/13/22 08:51 01/13/22 10:00 01/13/22 12:00 Temperature 36.3 C L Pulse Rate 87 74 81 Respiratory Rate 20 Blood Pressure 138/63 Pulse Oximetry 95 95 01/13/22 14:00 01/13/22 14:01 01/13/22 14:33 Temperature Pulse Rate 74 75 Respiratory Rate 16 Blood Pressure Pulse Oximetry 98 94 01/13/22 16:00 01/13/22 16:27 Temperature 35.8 C L Pulse Rate 74 75 Respiratory Rate 30 H Blood Pressure 124/70 Pulse Oximetry 99 98 Intake/Output Intake/Output: Intake & Output 01/10/22 01/11/22 01/12/22 01/13/22 23:59 23:59 23:59 23:59 Intake Total 750
[2022-01-13] MEDS: LOSARTAN POTASSIUM 100 MG TABLET PO (20:44)
[2022-01-13] MEDS: MELATONIN 5 MG TABLET 10 MG PO (20:44)
[2022-01-14] VITALS (18 sets, daily range): BP systolic 97–139; BP diastolic 63–82; PULSE 64–94; RESP 19–35; TEMP 36.4–37.1; O2SAT 95–100
[2022-01-14] MEDS: CENTRAL LINE FLUSH 10 ML IV PUSH ×3 (04:04→20:52)
[2022-01-14 04:27] LABS: Basophils Absolute Auto 0.1 K/mm3 (0.0-0.1); Basophils Percent Auto 0.2 % (0.2-1.2); Eosinophils Absolute Auto 0.4 K/mm3 (0-0.3); Eosinophils Percent Auto 1.7 % (0-4.4); Hematocrit 23.2 % (37.0-47.0); Hemoglobin 7.6 g/dL (12.0-15.0); Immature Granulocyte Percent A 1.9 % (0-0.5); Lymphocytes Absolute Auto 1.07 K/mm3 (0.9-3.2); Lymphocytes Percent Auto 4.1 % (18.3-44.2); Mean Corpuscular HGB Conc 32.8 g/dl (32-36); Mean Corpuscular Hemoglobin 30.9 pg (26-34); Mean Corpuscular Volume 94.3 fl (80-100); Mean Platelet Volume 9.6 fl (7.4-10.4); Monocytes Absolute Auto 0.3 K/mm3 (0.1-0.6); Monocytes Percent Auto 1.3 % (2.6-8.5); Neutrophils Absolute Auto 23.5 K/mm3 (1.3-6.7); Neutrophils Percent Auto 90.8 % (45.5-73.1); Platelet Count Result 150 k/mm3 (150-375); Red Blood Count 2.46 M/mm3 (4.2-5.4); Red Cell Distribution Width 15.1 % (11.5-14.5); White Blood Count 25.9 K/mm3 (4.5-10.0)
[2022-01-14 04:40] LABS: Alanine Aminotransferase 69 U/L (4-35); Albumin Level 3.1 g/dL (3.5-5.1); Alkaline Phosphatase 253 U/L (38-126); Anion Gap 5 mmol/L (8-16); Aspartate Amino Transferase 77 U/L (14-36); Bilirubin,Total 0.9 mg/dL (0.2-1.3); Blood Urea Nitrogen 11 mg/dL (7-17); CRP 4.5 mg/dL (<1.0); Calcium 8.7 mg/dL (8.4-10.2); Carbon Dioxide 25 mmol/L (22-30); Chloride 100 mmol/L (98-107); D Dimer 1.67 ug/mL (<0.48); Estimated CRCL calculation 97 ml/min; Estimated Glomerular Filt Rate > 60; Glucose 100 mg/dL (65-110); Potassium 4.1 mmol/L (3.4-5.0); Sodium 130 mmol/L (137-145)
[2022-01-14] MEDS: LORazepam INJ (*CRX) 2 MG/ML VIAL 0.5 MG IV PUSH ×4 (04:59→23:08)
[2022-01-14] MEDS: ALBUTEROL SULFATE (*SP) INHALER 2 PUFF INHALATION ×3 (08:32→20:18)
[2022-01-14] MEDS: cloNIDine HCL 0.2 MG TABLET PO ×3 (10:13→16:08)
[2022-01-14] MEDS: FLUTICASONE PROPIONATE 0.05% NA SPR 16 GM BTL (*BKC) 2 SPRAY NASAL (10:13)
[2022-01-14] MEDS: diphenhydrAMINE HCl CAP 25 MG CAPSULE ×2 (10:14→10:15)
[2022-01-14] MEDS: APIXABAN 5 MG TABLET PO ×2 (10:14→20:53)
[2022-01-14] MEDS: amLODIPine BESYLATE 5 MG TABLET PO (10:14)
[2022-01-14] MEDS: PSYLLIUM POWDER PACKET 1 PACKET PO (10:15)
[2022-01-14] MEDS: PANTOPRAZOLE SODIUM IV 40 MG VIAL IV PUSH ×2 (10:15→20:52)
--- NOTE | 2022-01-14 13:12 | PM.PNPUL ---
Progress Note: A&P Assessment and Plan (1) Pneumonia due to COVID-19 virus: Code(s): U07.1 - COVID-19; J12.82 - Pneumonia due to coronavirus disease 2019 Status: Acute Assessment and Plan: Patient with acute hypoxemic respiratory failure related to COVID 19 pneumonia. Respiratory status has worsened over the last 24 hours as patient required BiPAP support to maintain saturation over of 90%. She has no other respiratory symptoms to suggest bacterial coinfection. CRP mildly elevated, D-dimers also mildly elevated. We will continue with current regimen for now. will consider chest CT in a.m.. Patient may need transferred to the intensive care unit if respiratory status worsens. (2) History of asthma: Code(s): Z87.09 - Personal history of other diseases of the respiratory system Status: Acute Subjective Date/time seen: 01/14/22 13:12 patient was placed on BiPAP support yesterday. She has no new respiratory symptoms. She has no fever or sputum production. She has no wheezing. patient desaturates when BiPAP support is discontinued during meals. Receiving standard regimen for COVID-19 pneumonia and also antibiotic for possible coinfection. WBC has been persistently high Review of Systems Review of Systems: All systems reviewed & are unremarkable except as noted in HPI and below Exam Narrative: GENERAL APPEARANCE: Well developed, well nourished, alert and cooperative, and appears to be in moderate respiratory distress while on supplemental oxygen SKIN: Inspection of the skin reveals no rashes, ulcerations or petechiae. HEENT: Sclerae anicteric and conjunctivae pink and moist. Extraocular movements were intact and pupils were equal, round, and reactive to light. NECK: Supple. There was no thyroid enlargement, and no tenderness, or masses were felt. CHEST: Normal AP diameter and normal contour without any kyphoscoliosis. LUNGS: diffuse crackles at bases posteriorly with no wheezing CARDIAC: There was a regular rate and rhythm without any murmurs, gallops, rubs. ABDOMEN: Soft and nontender with normal bowel sounds. There was no organomegaly. LYMPH NODES: No lymphadenopathy was appreciated in the neck. EXTREMITIES: No cyanosis, clubbing or edema. NEUROLOGIC: Alert and oriented x 3. Normal affect. Objective Data Vital Signs Vital Signs: Vital Signs - 24 hr 01/13/22 14:00 01/13/22 14:01 01/13/22 14:33 Temperature Pulse Rate 74 75 Respiratory Rate 16 Blood Pressure Pulse Oximetry 98 94 01/13/22 16:00 01/13/22 16:27 01/13/22 18:00 Temperature 35.8 C L Pulse Rate 74 75 68 Respiratory Rate 30 H Blood Pressure 124/70 Pulse Oximetry 99 98 01/13/22 20:00 01/13/22 21:04 01/13/22 21:05 Temperature 36.6 C Pulse Rate 66 Respiratory Rate 22 H 22 H Blood Pressure 125/75 Pulse Oximetry 96 95 96 01/13/22 22:00 01/13/22 23:59 01/14/22 00:00 Temperature 36.3 C L Pulse Rate 75 67 65 Respiratory Rate 27 H 27 H Blood Pressure 131/88 Pulse Oximetry 98 98 01/14/22 02:00 01/14/22 02:38 01/14/22 04:00 Temperature 36.4 C L Pulse Rate 94 88 67 Respiratory Rate 20 24 H Blood Pressure 139/82 Pulse Oximetry 97 96 01/14/22 05:11 01/14/22 08:00 01/14/22 08:32 Temperature 37.1 C Pulse Rate 68 83 90 Respiratory Rate 33 H 20 Blood Pressure 131/79 Pulse Oximetry 96 97 Intake/Output Intake/Output: Intake & Output 01/11/22 01/12/22 01/13/22 01/14/22 23:59 23:59 23:59 23:59 Intake Total 1140 1460 1920 100 Output Total 1900 1900 1700 1650 Balance -760 440 220 1550 Meds/Results Medications: Active Medications Generic Name Dose Route Start Last Admin Trade Name Darrick PRN Reason Stop Dose Admin Albuterol 2 puff 01/09/22 20:00 01/14/22 08:32 Albuterol Sulfate (*Sp) Inhaler INHALATION 2 puff Q6HRT LINDA Administration Amlodipine Besylate 5 mg 01/10/22 09:00 01/14/22 10:14 Amlodipine Besylate 5 Mg Tablet PO 5
[2022-01-14] MEDS: BARICITINIB 2 MG TABLET 4 MG PO (13:23)
[2022-01-14 14:05] LABS: Alveolar/Arterial O2 Gradient 325.7 mmHg; Base Excess ABG -0.8 mEq/l (+/-2.0); Fractional Inspired Oxygen 60 %; HCO3 ABG 22.6 mEq/l (22.0-26.0); Oxygen Content ABG 15.1 %vol (16.0-22.0); Oxyhemoglobin 91.5 % THb (90.0-100.0); PCO2 ABG 33.3 mmHg (35.0-45.0); PO2 ABG 65.5 mmHg (80.0-100.0); PO2 FiO2 Ratio Arterial Blood 1.09 %; Total Hemoglobin 11.7 g/dL (12.0-18.0)
[2022-01-14 14:06] LABS: Device BIPAP; Expiratory Pressure 8 cmH2O; Inspiratory Pressure 12 cmH2O; Modified Allen's Test Pass; Site Drawn RIGHT RADIAL
--- NOTE | 2022-01-14 15:13 | PM.IMPN ---
Progress Note: A&P Assessment and Plan (1) Pneumonia due to COVID-19 virus: Code(s): U07.1 - COVID-19; J12.82 - Pneumonia due to coronavirus disease 2019 Status: Acute Assessment and Plan: Continue Decadron, baricitinib. Continue nebs and guaifenesis for symptomatic relief Ensure Compact TID Prone as tolerated Pt is requiring BIPAP watch repiratory status (2) Community acquired pneumonia: Code(s): J18.9 - Pneumonia, unspecified organism Status: Acute Assessment and Plan: Receiving Zosyn IV (3) Hypertension: Code(s): I10 - Essential (primary) hypertension Status: Chronic Assessment and Plan: Continue with Norvasc, clonidine, losartan, and hydroxyzine Bp is well controlled (4) Gastroesophageal reflux disease: Code(s): K21.9 - Gastro-esophageal reflux disease without esophagitis Status: Chronic Assessment and Plan: Pantoprazole IV. (5) COPD with asthma: Code(s): J44.9 - Chronic obstructive pulmonary disease, unspecified Status: Chronic Assessment and Plan: Continue with inhalers. (6) Migraines: Code(s): G43.909 - Migraine, unspecified, not intractable, without status migrainosus Status: Chronic Assessment and Plan: Abortive therapy prn (7) Thrombosis of upper extremity: Code(s): I82.609 - Acute embolism and thrombosis of unspecified veins of unspecified upper extremity Status: Chronic Assessment and Plan: Previously dx'd Continue Eliquis Additional Plan 01/12/22 cont eliquis cont dexamethasone and baricitinib antitussive high levels of oxygen required and pt ill appearing despite appropriate care c/s pulm for further recs 01/13/22 pt struggling in mid day abg drawn pt started on BIPAP 01/14/22 pt is on BIPAP abg drawn today Subjective Date/time seen: 01/14/22 15:13 Interval history: 01/11: Tight in chest. Short of breath with any exertion. Poor appetite. But tolerating supplements. 01/13: Pt is having some heavy breathing, pt had ABG, pt to start BIPAP today, pt seen by pulmonology earlier in the day 01/14: pt much the same needing BIPAP , abg ordered, watch respiratory status, pt seen by pulmology Review of Systems Review of Systems: All systems reviewed & are unremarkable except as noted in HPI and below Exam Narrative: Pt sitting up wearing BIPAP NECK: No JVD, adenopathy, or thyromegaly ABDOMEN: BS+, soft, nontender, no mass, no bruits EXTREMITIES: No cyanosis, edema, or clubbing NEUROLOGIC: CN intact no focal neurological deficits appreciated MUSCULOSKELETAL: Tone and strength symmetric. PSYCH: mood and affect congruent Objective Data Vital Signs Vital Signs: Vital Signs - 24 hr 01/13/22 16:00 01/13/22 16:27 01/13/22 18:00 Temperature 35.8 C L Pulse Rate 74 75 68 Respiratory Rate 30 H Blood Pressure 124/70 Pulse Oximetry 99 98 01/13/22 20:00 01/13/22 21:04 01/13/22 21:05 Temperature 36.6 C Pulse Rate 66 Respiratory Rate 22 H 22 H Blood Pressure 125/75 Pulse Oximetry 96 95 96 01/13/22 22:00 01/13/22 23:59 01/14/22 00:00 Temperature 36.3 C L Pulse Rate 75 67 65 Respiratory Rate 27 H 27 H Blood Pressure 131/88 Pulse Oximetry 98 98 01/14/22 02:00 01/14/22 02:38 01/14/22 04:00 Temperature 36.4 C L Pulse Rate 94 88 67 Respiratory Rate 20 24 H Blood Pressure 139/82 Pulse Oximetry 97 96 01/14/22 05:11 01/14/22 08:00 01/14/22 08:32 Temperature 37.1 C Pulse Rate 68 83 90 Respiratory Rate 33 H 20 Blood Pressure 131/79 Pulse Oximetry 96 97 01/14/22 12:00 01/14/22 14:28 Temperature 37.1 C Pulse Rate 64 88 Respiratory Rate 35 H 19 Blood Pressure 115/76 Pulse Oximetry 100 97 Intake/Output Intake/Output: Intake & Output 01/11/22 01/12/22 01/13/22 01/14/22 23:59 23:59 23:59 23:59 Intake Total 1140 1460 1920 220 Output Total 1900 1900 1700 1900 Balance -760 -440 220 -168
[2022-01-14] MEDS: SUMAtriptan SUCCINATE 25 MG TABLET 50 MG PO (16:08)
[2022-01-14 17:24] LABS: NT Pro B Type Natriuretic Pept 758 pg/mL (5-100)
[2022-01-14] MEDS: MELATONIN 5 MG TABLET 10 MG PO (20:52)
[2022-01-14] MEDS: LOSARTAN POTASSIUM 100 MG TABLET PO (20:53)
[2022-01-15] VITALS (21 sets, daily range): BP systolic 127–154; BP diastolic 64–80; PULSE 56–92; RESP 19–30; TEMP 36.1–37.1; O2SAT 91–100
[2022-01-15] MEDS: ALBUTEROL SULFATE (*SP) INHALER 2 PUFF INHALATION ×4 (03:00→20:14)
[2022-01-15] MEDS: CENTRAL LINE FLUSH 10 ML IV PUSH ×3 (05:09→20:31)
[2022-01-15] MEDS: LORazepam INJ (*CRX) 2 MG/ML VIAL 0.5 MG IV PUSH ×4 (05:09→23:17)
[2022-01-15 05:39] LABS: Basophils Percent Auto 0.1 % (0.2-1.2); Eosinophils Absolute Auto 0.5 K/mm3 (0-0.3); Eosinophils Percent Auto 1.8 % (0-4.4); Hematocrit 30.1 % (37.0-47.0); Hemoglobin 10.1 g/dL (12.0-15.0); Immature Granulocyte Absolute 0.38 K/mm3 (0.00-0.031); Immature Granulocyte Percent A 1.4 % (0-0.5); Lymphocytes Absolute Auto 1.43 K/mm3 (0.9-3.2); Lymphocytes Percent Auto 5.1 % (18.3-44.2); Mean Corpuscular HGB Conc 33.6 g/dl (32-36); Mean Corpuscular Volume 92.3 fl (80-100); Mean Platelet Volume 9.7 fl (7.4-10.4); Monocytes Absolute Auto 0.5 K/mm3 (0.1-0.6); Monocytes Percent Auto 1.8 % (2.6-8.5); Neutrophils Absolute Auto 25.1 K/mm3 (1.3-6.7); Neutrophils Percent Auto 89.8 % (45.5-73.1); Platelet Count Result 270 k/mm3 (150-375); Red Blood Count 3.26 M/mm3 (4.2-5.4); Red Cell Distribution Width 14.8 % (11.5-14.5); White Blood Count 27.9 K/mm3 (4.5-10.0)
--- NOTE | 2022-01-15 08:38 | PM.PNPUL ---
Progress Note: A&P Assessment and Plan (1) Pneumonia due to COVID-19 virus: Code(s): U07.1 - COVID-19; J12.82 - Pneumonia due to coronavirus disease 2019 Status: Acute Assessment and Plan: Patient with acute hypoxemic respiratory failure related to COVID 19 pneumonia. Respiratory status has worsened over the last 24 hours as patient required BiPAP support to maintain saturation over of 90%. She has no other respiratory symptoms to suggest bacterial coinfection. Will proceed with a chest CT. We will continue with current regimen for now. Patient may need to be transferred to the intensive care unit if respiratory status worsens. (2) History of asthma: Code(s): Z87.09 - Personal history of other diseases of the respiratory system Status: Acute Subjective Date/time seen: 01/15/22 08:38 patient has no new respiratory symptoms. She is still BiPAP dependent with FiO2 of 55%. She still has desaturation when BiPAP is taken off. No significant cough. afebrile Review of Systems Review of Systems: All systems reviewed & are unremarkable except as noted in HPI and below Exam Narrative: GENERAL APPEARANCE: Well developed, well nourished, alert and cooperative, and appears to be in moderate respiratory distress while on supplemental oxygen SKIN: Inspection of the skin reveals no rashes, ulcerations or petechiae. HEENT: Sclerae anicteric and conjunctivae pink and moist. Extraocular movements were intact and pupils were equal, round, and reactive to light. NECK: Supple. There was no thyroid enlargement, and no tenderness, or masses were felt. CHEST: Normal AP diameter and normal contour without any kyphoscoliosis. LUNGS: diffuse crackles at bases posteriorly with no wheezing CARDIAC: There was a regular rate and rhythm without any murmurs, gallops, rubs. ABDOMEN: Soft and nontender with normal bowel sounds. There was no organomegaly. LYMPH NODES: No lymphadenopathy was appreciated in the neck. EXTREMITIES: No cyanosis, clubbing or edema. NEUROLOGIC: Alert and oriented x 3. Normal affect. Objective Data Vital Signs Vital Signs: Vital Signs - 24 hr 01/14/22 10:00 01/14/22 12:00 01/14/22 14:00 Temperature 37.1 C Pulse Rate 85 65 69 Respiratory Rate 35 H Blood Pressure 115/76 Pulse Oximetry 100 01/14/22 14:28 01/14/22 16:00 01/14/22 18:00 Temperature 37.0 C Pulse Rate 88 69 72 Respiratory Rate 19 33 H Blood Pressure 97/63 L Pulse Oximetry 97 95 01/14/22 20:00 01/14/22 20:05 01/14/22 20:40 Temperature 36.4 C L Pulse Rate 84 88 84 Respiratory Rate 20 21 H 22 H Blood Pressure 125/70 Pulse Oximetry 98 97 98 01/14/22 20:58 01/14/22 21:56 01/15/22 00:00 Temperature 36.3 C L Pulse Rate 84 75 60 Respiratory Rate 20 26 H Blood Pressure 137/70 Pulse Oximetry 99 01/15/22 00:02 01/15/22 02:00 01/15/22 02:30 Temperature Pulse Rate 92 60 56 L Respiratory Rate 20 20 Blood Pressure Pulse Oximetry 97 96 01/15/22 03:42 01/15/22 04:25 01/15/22 05:38 Temperature 36.6 C Pulse Rate 88 80 68 Respiratory Rate 20 22 H Blood Pressure 143/73 H Pulse Oximetry 94 92 01/15/22 08:33 01/15/22 08:34 Temperature Pulse Rate 77 Respiratory Rate 19 Blood Pressure Pulse Oximetry 95 96 Intake/Output Intake/Output: Intake & Output 01/12/22 01/13/22 01/14/22 01/15/22 23:59 23:59 23:59 23:59 Intake Total 1460 1920 440 290 Output Total 1900 1700 2800 450 Balance -440 220 -2360 -160 Meds/Results Medications: Active Medications Generic Name Dose Route Start Last Admin Trade Name Darrick PRN Reason Stop Dose Admin Albuterol 2 puff 01/09/22 20:00 01/15/22 08:27 Albuterol Sulfate (*Sp) Inhaler INHALATION 2 puff Q6HRT LINDA Administration Amlodipine Besylate 5 mg 01/10/22 09:00 01/14/22 10:14 Amlodipine Besylate 5 Mg Tablet PO 5 mg DAILY LINDA Administration Apixaban 5 mg 01/09/22 21:00 01/14/22 20:53 Apixa
[2022-01-15 08:48] LABS: Alanine Aminotransferase 61 U/L (4-35); Albumin Level 2.9 g/dL (3.5-5.1); Alkaline Phosphatase 247 U/L (38-126); Anion Gap 7 mmol/L (8-16); Aspartate Amino Transferase 70 U/L (14-36); Bilirubin,Total 0.9 mg/dL (0.2-1.3); Blood Urea Nitrogen 12 mg/dL (7-17); Calcium 8.8 mg/dL (8.4-10.2); Carbon Dioxide 23 mmol/L (22-30); Chloride 100 mmol/L (98-107); Estimated CRCL calculation 82 ml/min; Estimated Glomerular Filt Rate > 60; Glucose 106 mg/dL (65-110); Potassium 3.9 mmol/L (3.4-5.0); Sodium 130 mmol/L (137-145)
[2022-01-15] MEDS: amLODIPine BESYLATE 5 MG TABLET PO (09:02)
[2022-01-15] MEDS: PANTOPRAZOLE SODIUM IV 40 MG VIAL IV PUSH ×2 (09:02→20:30)
[2022-01-15] MEDS: APIXABAN 5 MG TABLET PO ×2 (09:02→20:30)
[2022-01-15] MEDS: cloNIDine HCL 0.2 MG TABLET PO ×2 (09:02→17:29)
[2022-01-15] MEDS: PSYLLIUM POWDER PACKET 1 PACKET PO (09:03)
[2022-01-15] MEDS: BARICITINIB 2 MG TABLET 4 MG PO (10:32)
[2022-01-15] MEDS: REMDESIVIR 100 MG/NS 250 ML 100 MG/250 ML BAG 250 MG IVPB (10:33)
[2022-01-15 12:04] LABS: INR 1.8; Prothrombin Time 20.4 Seconds (11.1-14.7)
--- NOTE | 2022-01-15 13:52 | PM.IMPN ---
Progress Note: A&P Assessment and Plan (1) Pneumonia due to COVID-19 virus: Code(s): U07.1 - COVID-19; J12.82 - Pneumonia due to coronavirus disease 2019 Status: Acute Assessment and Plan: Continue Decadron, baricitinib. Continue nebs and guaifenesis for symptomatic relief Ensure Compact TID Prone as tolerated Pt is requiring BIPAP watch repiratory status (2) Community acquired pneumonia: Code(s): J18.9 - Pneumonia, unspecified organism Status: Acute Assessment and Plan: Receiving Zosyn IV (3) Hypertension: Code(s): I10 - Essential (primary) hypertension Status: Chronic Assessment and Plan: Continue with Norvasc, clonidine, losartan, and hydroxyzine Bp is well controlled (4) Gastroesophageal reflux disease: Code(s): K21.9 - Gastro-esophageal reflux disease without esophagitis Status: Chronic Assessment and Plan: Pantoprazole IV. (5) COPD with asthma: Code(s): J44.9 - Chronic obstructive pulmonary disease, unspecified Status: Chronic Assessment and Plan: Continue with inhalers. 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 Plan is to continue with IV antibiotic steroid and remdesivir. Follow closely with labs and x-ray. Support for the oxygen as tolerated Subjective Date/time seen: 01/15/22 13:52 Patient was seen during morning rounds today. Patient has mild shortness of breath. Still requiring BiPAP. No she chest pain. No abdominal pain, nausea, no vomiting. Mood stable. Review of Systems Review of Systems: All systems reviewed & are unremarkable except as noted in HPI and below Constitutional: Constitutional: Reports as per HPI and Reports no additional constitutional complaints Eyes: Eyes: Reports as per HPI and Reports no additional eye complaints ENT: Reports system reviewed and no additional complaints, except as documented and Reports Normal hearing present Cardiovascular: Cardiovascular: Reports no additional cardiovascular complaints Respiratory: Respiratory: Reports no additional respiratory complaints and Reports no additional respiratory complaints Gastrointestinal: Gastrointestinal: Reports as per HPI and Reports no additional gastrointestinal complaints Musculoskeletal: Musculoskeletal: Reports no additional musculoskeletal complaints Integumentary/Breasts: Skin/Breast: Reports system reviewed and no additional complaints, except as docu and Reports as per HPI Neurologic: Reports system reviewed and no additional complaints, except as documented, Reports as per HPI and Reports Normal hearing present Psychiatric: Psychiatric: Reports no additional psychiatric complaints and Reports as per HPI Endocrine: Endocrine: Reports no additional endocrine complaints Hematologic/Lymphatic: Hematologic/Lymphatic: Reports no additional hematologic/lymphatic complaints Allergic/Immunologic: Allergic/Immunologic: Reports no additional allergic/immunologic complaints Exam Narrative: Pt sitting up wearing BIPAP NECK: No JVD, adenopathy, or thyromegaly ABDOMEN: BS+, soft, nontender, no mass, no bruits EXTREMITIES: No cyanosis, edema, or clubbing NEUROLOGIC: CN intact no focal neurological deficits appreciated MUSCULOSKELETAL: Tone and strength symmetric. PSYCH: mood and affect congruent Const: General: cooperative, healthy appearing, comfortable, no acute distress, well developed, alert, awake and Physically active Nutritional Appearance: average body habitus Orientation/con
[2022-01-15] MEDS: LOSARTAN POTASSIUM 100 MG TABLET PO (20:30)
[2022-01-15] MEDS: MELATONIN 5 MG TABLET 10 MG PO (20:30)
[2022-01-16] VITALS (15 sets, daily range): BP systolic 121–161; BP diastolic 70–85; PULSE 66–100; RESP 19–32; TEMP 36.6–37.5; O2SAT 87–100
[2022-01-16] MEDS: ALBUTEROL SULFATE (*SP) INHALER 2 PUFF INHALATION ×4 (02:16→19:42)
[2022-01-16] MEDS: guaiFENesin/DEXTROMETHORPHAN 10 ML UDC PO ×2 (03:40→10:38)
[2022-01-16] MEDS: CENTRAL LINE FLUSH 10 ML IV PUSH ×3 (05:26→21:42)
[2022-01-16] MEDS: LORazepam INJ (*CRX) 2 MG/ML VIAL 0.5 MG IV PUSH ×2 (05:26→10:56)
[2022-01-16 06:04] LABS: Basophils Percent Auto 0.1 % (0.2-1.2); Eosinophils Absolute Auto 0.3 K/mm3 (0-0.3); Eosinophils Percent Auto 0.9 % (0-4.4); Hematocrit 29.6 % (37.0-47.0); Hemoglobin 10.1 g/dL (12.0-15.0); Immature Granulocyte Absolute 0.42 K/mm3 (0.00-0.031); Immature Granulocyte Percent A 1.5 % (0-0.5); Lymphocytes Absolute Auto 1.22 K/mm3 (0.9-3.2); Lymphocytes Percent Auto 4.3 % (18.3-44.2); Mean Corpuscular HGB Conc 34.1 g/dl (32-36); Mean Corpuscular Hemoglobin 30.6 pg (26-34); Mean Corpuscular Volume 89.7 fl (80-100); Mean Platelet Volume 9.5 fl (7.4-10.4); Monocytes Absolute Auto 0.8 K/mm3 (0.1-0.6); Monocytes Percent Auto 2.6 % (2.6-8.5); Neutrophils Percent Auto 90.6 % (45.5-73.1); Platelet Count Result 337 k/mm3 (150-375); White Blood Count 28.7 K/mm3 (4.5-10.0)
[2022-01-16 06:07] LABS: Alanine Aminotransferase 62 U/L (4-35); Albumin Level 3.1 g/dL (3.5-5.1); Alkaline Phosphatase 253 U/L (38-126); Anion Gap 5 mmol/L (8-16); Aspartate Amino Transferase 71 U/L (14-36); Bilirubin,Total 0.8 mg/dL (0.2-1.3); Blood Urea Nitrogen 11 mg/dL (7-17); Calcium 8.8 mg/dL (8.4-10.2); Carbon Dioxide 26 mmol/L (22-30); Chloride 100 mmol/L (98-107); Estimated CRCL calculation 82 ml/min; Estimated Glomerular Filt Rate > 60; Glucose 107 mg/dL (65-110); Potassium 3.9 mmol/L (3.4-5.0); Sodium 131 mmol/L (137-145)
[2022-01-16 06:49] LABS: INR 1.5; Prothrombin Time 17.5 Seconds (11.1-14.7)
[2022-01-16] MEDS: amLODIPine BESYLATE 5 MG TABLET PO (09:51)
[2022-01-16] MEDS: APIXABAN 5 MG TABLET PO ×2 (10:05→21:40)
[2022-01-16] MEDS: cloNIDine HCL 0.2 MG TABLET PO ×3 (10:06→18:24)
[2022-01-16] MEDS: FLUTICASONE PROPIONATE 0.05% NA SPR 16 GM BTL (*BKC) 2 SPRAY NASAL (10:07)
[2022-01-16] MEDS: PSYLLIUM POWDER PACKET 1 PACKET PO (10:08)
[2022-01-16] MEDS: PANTOPRAZOLE SODIUM IV 40 MG VIAL IV PUSH ×2 (10:08→21:40)
--- NOTE | 2022-01-16 10:24 | PM.IMPN ---
Progress Note: A&P Assessment and Plan (1) Pneumonia due to COVID-19 virus: Code(s): U07.1 - COVID-19; J12.82 - Pneumonia due to coronavirus disease 2019 Status: Acute Assessment and Plan: Continue Decadron, baricitinib. Continue nebs and guaifenesis for symptomatic relief Ensure Compact TID Prone as tolerated Pt is requiring BIPAP watch repiratory status (2) Community acquired pneumonia: Code(s): J18.9 - Pneumonia, unspecified organism Status: Acute Assessment and Plan: Receiving Zosyn IV (3) Hypertension: Code(s): I10 - Essential (primary) hypertension Status: Chronic Assessment and Plan: Continue with Norvasc, clonidine, losartan, and hydroxyzine Bp is well controlled (4) Gastroesophageal reflux disease: Code(s): K21.9 - Gastro-esophageal reflux disease without esophagitis Status: Chronic Assessment and Plan: Pantoprazole IV. (5) COPD with asthma: Code(s): J44.9 - Chronic obstructive pulmonary disease, unspecified Status: Chronic Assessment and Plan: Continue with inhalers. 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 Plan is to continue with IV antibiotic steroid and remdesivir. Follow closely with labs and x-ray. Support for the oxygen as tolerated 01/16/2022 Patient is improving gradually. Still requiring intermittent use of BiPAP. No new overnight complaints. Plan is to continue with oxygen use, BiPAP use and medication. Subjective Date/time seen: 01/16/22 10:24 Interval history: 01/16/2022 Patient is feeling much better today. Mild shortness of breath no chest pain. Still requiring intermittent use of BiPAP. No chest pain. No abdominal pain, nausea, no vomiting. Mood stable. Review of Systems Review of Systems: All systems reviewed & are unremarkable except as noted in HPI and below Constitutional: Constitutional: Reports as per HPI and Reports no additional constitutional complaints Eyes: Eyes: Reports as per HPI and Reports no additional eye complaints ENT: Reports system reviewed and no additional complaints, except as documented and Reports Normal hearing present Cardiovascular: Cardiovascular: Reports no additional cardiovascular complaints Respiratory: Respiratory: Reports no additional respiratory complaints and Reports no additional respiratory complaints Gastrointestinal: Gastrointestinal: Reports as per HPI and Reports no additional gastrointestinal complaints Musculoskeletal: Musculoskeletal: Reports no additional musculoskeletal complaints Integumentary/Breasts: Skin/Breast: Reports system reviewed and no additional complaints, except as docu and Reports as per HPI Neurologic: Reports system reviewed and no additional complaints, except as documented, Reports as per HPI and Reports Normal hearing present Psychiatric: Psychiatric: Reports no additional psychiatric complaints and Reports as per HPI Endocrine: Endocrine: Reports no additional endocrine complaints Hematologic/Lymphatic: Hematologic/Lymphatic: Reports no additional hematologic/lymphatic complaints Allergic/Immunologic: Allergic/Immunologic: Reports no additional allergic/immunologic complaints Exam Narrative: Pt sitting up wearing BIPAP NECK: No JVD, adenopathy, or thyromegaly ABDOMEN: BS+, soft, nontender, no mass, no bruits EXTREMITIES: No cyanosis, edema, or clubbing NEUROLOGIC: CN intact no focal neurological deficits appreciated MUSCULOSKELETAL: Tone and strength symmetric. PSYCH
--- NOTE | 2022-01-16 10:30 | PM.PNPUL ---
Progress Note: A&P Assessment and Plan (1) Pneumonia due to COVID-19 virus: Code(s): U07.1 - COVID-19; J12.82 - Pneumonia due to coronavirus disease 2019 Status: Acute Assessment and Plan: Patient with acute hypoxemic respiratory failure related to COVID 19 pneumonia. Patient was vaccinated with 2 doses plus a booster. Patient remaining on BiPAP support with 12/8, FiO2 55%. CT PA done yesterday showed findings consistent with severe COVID pneumonia. Leukocytosis persists; has been on on Zosyn for possible bacterial coinfection. Currently on remdesivir dexamethasone and baricitinib. DVT prophylaxis provided by Eliquis she had been on. Will continue with current regimen, monitor CRP, D-dimers. (2) History of asthma: Code(s): Z87.09 - Personal history of other diseases of the respiratory system Status: Acute Subjective Date/time seen: 01/16/22 10:30 respiratory status essentially unchanged over last 24 hours. Patient remaining BiPAP dependent, on high FiO2. has mild coughing with no sputum production. No wheezing. Underwent CT PA yesterday. Review of Systems Review of Systems: All systems reviewed & are unremarkable except as noted in HPI and below Exam Narrative: GENERAL APPEARANCE: Well developed, well nourished, alert and cooperative, and appears to be in moderate respiratory distress while on supplemental oxygen SKIN: Inspection of the skin reveals no rashes, ulcerations or petechiae. HEENT: Sclerae anicteric and conjunctivae pink and moist. Extraocular movements were intact and pupils were equal, round, and reactive to light. NECK: Supple. There was no thyroid enlargement, and no tenderness, or masses were felt. CHEST: Normal AP diameter and normal contour without any kyphoscoliosis. LUNGS: diffuse crackles at bases posteriorly with no wheezing CARDIAC: There was a regular rate and rhythm without any murmurs, gallops, rubs. ABDOMEN: Soft and nontender with normal bowel sounds. There was no organomegaly. LYMPH NODES: No lymphadenopathy was appreciated in the neck. EXTREMITIES: No cyanosis, clubbing or edema. NEUROLOGIC: Alert and oriented x 3. Normal affect. Objective Data Vital Signs Vital Signs: Vital Signs - 24 hr 01/15/22 12:00 01/15/22 12:30 01/15/22 14:00 Temperature 36.8 C Pulse Rate 72 72 Respiratory Rate 30 H Blood Pressure 150/70 H Pulse Oximetry 100 95 01/15/22 16:00 01/15/22 18:33 01/15/22 20:00 Temperature 36.7 C 37.1 C Pulse Rate 74 71 63 Respiratory Rate 26 H 21 H Blood Pressure 152/80 H 127/64 Pulse Oximetry 100 100 95 01/15/22 20:14 01/15/22 20:15 01/15/22 22:00 Temperature Pulse Rate 87 87 Respiratory Rate 21 H Blood Pressure Pulse Oximetry 94 95 01/15/22 23:42 01/16/22 02:00 01/16/22 02:16 Temperature 36.2 C L Pulse Rate 65 78 83 Respiratory Rate 20 19 Blood Pressure 154/80 H Pulse Oximetry 99 94 01/16/22 04:00 01/16/22 06:00 01/16/22 08:00 Temperature 36.6 C 36.7 C Pulse Rate 66 68 78 Respiratory Rate 20 31 H Blood Pressure 155/80 H 161/85 H Pulse Oximetry 94 96 01/16/22 08:45 Temperature Pulse Rate 80 Respiratory Rate 28 H Blood Pressure Pulse Oximetry 94 Intake/Output Intake/Output: Intake & Output 01/13/22 01/14/22 01/15/22 01/16/22 23:59 23:59 23:59 23:59 Intake Total 1920 440 640 250 Output Total 1700 2800 1350 850 Balance 220 -2360 -710 -600 Meds/Results Medications: Active Medications Generic Name Dose Route Start Last Admin Trade Name Freq PRN Reason Stop Dose Admin Albuterol 2 puff 01/09/22 20:00 01/16/22 08:45 Albuterol Sulfate (*Sp) Inhaler INHALATION 2 puff Q6HRT LINDA Administration Amlodipine Besylate 5 mg 01/10/22 09:00 01/16/22 09:51 Amlodipine Besylate 5 Mg Tablet PO 5 mg DAILY LINDA Administration Apixaban 5 mg 01/09/22 21:00 01/16/22 10:05 Apixaban 5 Mg Tablet PO 5 mg Q12HR LINDA Administration Baricitinib 4
[2022-01-16] MEDS: REMDESIVIR 100 MG/NS 250 ML 100 MG/250 ML BAG 250 MG IVPB (10:37)
[2022-01-16 11:13] LABS: CRP 2.6 mg/dL (<1.0)
[2022-01-16] MEDS: BARICITINIB 2 MG TABLET 4 MG PO (11:57)
[2022-01-16 12:13] LABS: D Dimer 0.23 ug/mL (<0.48)
[2022-01-16] MEDS: hydrOXYzine pamoate 25 MG CAPSULE 50 MG PO ×2 (13:06→21:42)
[2022-01-16] MEDS: SUMAtriptan SUCCINATE 25 MG TABLET 50 MG PO (18:24)
[2022-01-16 19:16] LABS: Procalcitonin 0.2 ng/mL
[2022-01-16] MEDS: MELATONIN 5 MG TABLET 10 MG PO (21:40)
[2022-01-16] MEDS: LOSARTAN POTASSIUM 100 MG TABLET PO (21:40)
[2022-01-17] VITALS (19 sets, daily range): BP systolic 115–149; BP diastolic 53–93; PULSE 51–88; RESP 20–33; TEMP 36.3–36.8; O2SAT 94–100
[2022-01-17] MEDS: LORazepam INJ (*CRX) 2 MG/ML VIAL 0.5 MG IV PUSH ×3 (01:25→17:57)
[2022-01-17] MEDS: ALBUTEROL SULFATE (*SP) INHALER 2 PUFF INHALATION ×4 (01:42→20:50)
[2022-01-17] MEDS: CENTRAL LINE FLUSH 10 ML IV PUSH ×3 (05:08→21:42)
[2022-01-17] MEDS: cloNIDine HCL 0.2 MG TABLET PO ×3 (09:32→17:58)
[2022-01-17] MEDS: PANTOPRAZOLE SODIUM IV 40 MG VIAL IV PUSH ×2 (09:32→21:40)
[2022-01-17] MEDS: APIXABAN 5 MG TABLET PO ×2 (09:32→21:40)
[2022-01-17] MEDS: amLODIPine BESYLATE 5 MG TABLET PO (09:32)
[2022-01-17] MEDS: FLUTICASONE PROPIONATE 0.05% NA SPR 16 GM BTL (*BKC) 2 SPRAY NASAL (09:34)
[2022-01-17 09:38] LABS: Basophils Percent Auto 0.1 % (0.2-1.2); Eosinophils Absolute Auto 0.9 K/mm3 (0-0.3); Eosinophils Percent Auto 3.1 % (0-4.4); Hematocrit 31.1 % (37.0-47.0); Hemoglobin 10.4 g/dL (12.0-15.0); Immature Granulocyte Absolute 0.44 K/mm3 (0.00-0.031); Immature Granulocyte Percent A 1.6 % (0-0.5); Lymphocytes Absolute Auto 2.15 K/mm3 (0.9-3.2); Lymphocytes Percent Auto 7.8 % (18.3-44.2); Mean Corpuscular HGB Conc 33.4 g/dl (32-36); Mean Corpuscular Volume 92.6 fl (80-100); Mean Platelet Volume 9.4 fl (7.4-10.4); Monocytes Absolute Auto 0.8 K/mm3 (0.1-0.6); Monocytes Percent Auto 2.8 % (2.6-8.5); Neutrophils Absolute Auto 23.4 K/mm3 (1.3-6.7); Neutrophils Percent Auto 84.6 % (45.5-73.1); Platelet Count Result 446 k/mm3 (150-375); Red Blood Count 3.36 M/mm3 (4.2-5.4); Red Cell Distribution Width 15.2 % (11.5-14.5); White Blood Count 27.6 K/mm3 (4.5-10.0)
[2022-01-17 09:49] LABS: Alanine Aminotransferase 97 U/L (4-35); Estimated CRCL calculation 82 ml/min; Estimated Glomerular Filt Rate > 60
[2022-01-17 09:50] LABS: Aspartate Amino Transferase 169 U/L (14-36)
--- NOTE | 2022-01-17 10:03 | PM.IMPN ---
Progress Note: A&P Assessment and Plan (1) Pneumonia due to COVID-19 virus: Code(s): U07.1 - COVID-19; J12.82 - Pneumonia due to coronavirus disease 2019 Status: Acute Assessment and Plan: Continue Decadron, baricitinib. Continue nebs and guaifenesis for symptomatic relief Ensure Compact TID Prone as tolerated Pt is requiring BIPAP watch repiratory status (2) Community acquired pneumonia: Code(s): J18.9 - Pneumonia, unspecified organism Status: Acute Assessment and Plan: Receiving Zosyn IV (3) Hypertension: Code(s): I10 - Essential (primary) hypertension Status: Chronic Assessment and Plan: Continue with Norvasc, clonidine, losartan, and hydroxyzine Bp is well controlled (4) Gastroesophageal reflux disease: Code(s): K21.9 - Gastro-esophageal reflux disease without esophagitis Status: Chronic Assessment and Plan: Pantoprazole IV. (5) COPD with asthma: Code(s): J44.9 - Chronic obstructive pulmonary disease, unspecified Status: Chronic Assessment and Plan: Continue with inhalers. 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 Plan is to continue with IV antibiotic steroid and remdesivir. Follow closely with labs and x-ray. Support for the oxygen as tolerated 01/16/2022 Patient is improving gradually. Still requiring intermittent use of BiPAP. No new overnight complaints. Plan is to continue with oxygen use, BiPAP use and medication. 01/17/2022 Patient looks much better today. Mild shortness of breath no chest pain . Plan is to continue to use intermittent BiPAP and wean off oxygen as tolerated. Subjective Date/time seen: 01/17/22 10:03 Interval history: 01/17/2022 Patient is feeling much better today. No new overnight complaints. Mild shortness of breath no chest pain. Still requiring intermittent use of BiPAP. No chest pain. No abdominal pain, nausea, no vomiting. Mood stable. Review of Systems Review of Systems: All systems reviewed & are unremarkable except as noted in HPI and below (the history and physical examination) Exam Narrative: Pt sitting up wearing BIPAP NECK: No JVD, adenopathy, or thyromegaly ABDOMEN: BS+, soft, nontender, no mass, no bruits EXTREMITIES: No cyanosis, edema, or clubbing NEUROLOGIC: CN intact no focal neurological deficits appreciated MUSCULOSKELETAL: Tone and strength symmetric. PSYCH: mood and affect congruent Const: General: cooperative, healthy appearing, comfortable, no acute distress, well developed, alert, awake and Physically active Nutritional Appearance: average body habitus Orientation/consciousness: oriented to person, oriented to place, oriented to time and patient oriented x3 Limitations: no limitations HENMT: Head: normal to inspection, No palpable skull fracture present, normocephalic and atraumatic Ears: hearing grossly normal bilaterally and external ears normal General nose exam: Normal external nose present Mouth: Yes Normal oral and palatal mucosa present Throat: posterior oropharynx normal Eyes: General: appearance normal, both eyes and all related structures Alignment and Position: alignment normal Periorbital: periorbital findings normal Eyelids: eyelids normal Conjunctivae: conjunctivae normal Sclera: sclerae normal Cornea: corneas normal Pupils: Equal, round and reactive pupils present and Pupil accommodation reflex normal EOM: EOMs intact bilaterally Neck: Neck: normal visual inspection, full ROM and supple Thyr
[2022-01-17 10:09] LABS: INR 1.4; Prothrombin Time 16.7 Seconds (11.1-14.7)
[2022-01-17] MEDS: REMDESIVIR 100 MG/NS 250 ML 100 MG/250 ML BAG 250 MG IVPB (12:14)
[2022-01-17] MEDS: BARICITINIB 2 MG TABLET 4 MG PO (12:14)
[2022-01-17] MEDS: ONDANSETRON INJ 4 MG/2 ML VIAL IV PUSH (12:25)
[2022-01-17] MEDS: SUMAtriptan SUCCINATE 25 MG TABLET 50 MG PO (14:27)
--- NOTE | 2022-01-17 20:41 | PM.PNPUL ---
Progress Note: A&P Assessment and Plan (1) Pneumonia due to COVID-19 virus: Code(s): U07.1 - COVID-19; J12.82 - Pneumonia due to coronavirus disease 2019 Status: Acute Assessment and Plan: Patient with acute hypoxemic respiratory failure related to COVID 19 pneumonia. Patient was vaccinated with 2 doses plus a booster. Patient remaining on BiPAP support with 11/05, FiO2 100%. This is an increase in O2 requirement. Recent CTA 01/15/22 showed findings consistent with severe COVID pneumonia. Leukocytosis persists now 27.6K; has been on on Zosyn for possible bacterial coinfection. Currently on remdesivir dexamethasone and baricitinib. DVT prophylaxis provided by Eliquis she had been on. Will continue with current regimen, monitor CRP, D-dimers. (2) History of asthma: Code(s): Z87.09 - Personal history of other diseases of the respiratory system Status: Acute Assessment and Plan: She is not wheezing. She has albuterol inhaler Q 6 hours. Subjective Date/time seen: 01/17/22 20:41 This 51 year old female remains BiPAP dependent 11/05 with FiO2 65% for COVID pneumonia with acute hypoxemic respiratory failure. She has mild coughing with no sputum production. No wheezing. She is not eating much with decreased appetite and limited reserve. She desaturates with exertion. Review of Systems Review of Systems: All systems reviewed & are unremarkable except as noted in HPI and below Exam Narrative: GENERAL APPEARANCE: Well developed, well nourished, alert and cooperative, and appears to be in moderate respiratory distress while on supplemental oxygen CHEST: Normal AP diameter and normal contour without any kyphoscoliosis. LUNGS: diffuse crackles at bases posteriorly with no wheezing CARDIAC: There was a regular rate and rhythm without any murmurs, gallops, rubs. ABDOMEN: Soft and nontender with normal bowel sounds. There was no organomegaly. EXTREMITIES: No cyanosis, clubbing or edema. NEUROLOGIC: Alert and oriented x 3. Normal affect. Objective Data Vital Signs Vital Signs: Vital Signs - 24 hr 01/16/22 22:00 01/17/22 00:00 01/17/22 01:42 Temperature 36.5 C Pulse Rate 68 53 L 88 Respiratory Rate 24 H 22 H Blood Pressure 149/93 H Pulse Oximetry 99 95 01/17/22 02:00 01/17/22 04:00 01/17/22 06:00 Temperature 36.3 C L Pulse Rate 55 L 72 57 L Respiratory Rate 32 H Blood Pressure 144/86 H Pulse Oximetry 96 01/17/22 08:00 01/17/22 08:35 01/17/22 10:00 Temperature 36.4 C L Pulse Rate 63 64 Respiratory Rate 22 H Blood Pressure 134/74 Pulse Oximetry 94 94 01/17/22 12:00 01/17/22 14:00 01/17/22 14:05 Temperature 36.8 C Pulse Rate 71 70 Respiratory Rate 22 H Blood Pressure 124/68 Pulse Oximetry 100 95 01/17/22 16:00 01/17/22 18:00 01/17/22 20:00 Temperature 36.6 C 36.5 C Pulse Rate 74 82 66 Respiratory Rate 20 30 H Blood Pressure 119/66 130/53 L Pulse Oximetry 100 100 Intake/Output Intake/Output: Intake & Output 01/14/22 01/15/22 01/16/22 01/17/22 23:59 23:59 23:59 23:59 Intake Total 655 531 9194 2430 Output Total 2800 1350 1800 3200 Balance -2360 -460 -570 -770 Meds/Results Medications: Active Medications Generic Name Dose Route Start Last Admin Trade Name Freq PRN Reason Stop Dose Admin Albuterol 2 puff 01/09/22 20:00 01/17/22 14:05 Albuterol Sulfate (*Sp) Inhaler INHALATION 2 puff Q6HRT LINDA Administration Amlodipine Besylate 5 mg 01/10/22 09:00 01/17/22 09:32 Amlodipine Besylate 5 Mg Tablet PO 5 mg DAILY LINDA Administration Apixaban 5 mg 01/09/22 21:00 01/17/22 09:32 Apixaban 5 Mg Tablet PO 5 mg Q12HR LINDA Administration Baricitinib 4 mg 01/10/22 11:00 01/17/22 12:14 Baricitinib 2 Mg Tablet PO 01/22/22 11:01 4 mg DAILY@11 LINDA Administr
[2022-01-17] MEDS: LOSARTAN POTASSIUM 100 MG TABLET PO (21:40)
[2022-01-17] MEDS: MELATONIN 5 MG TABLET 10 MG PO (21:40)
[2022-01-17] MEDS: hydrOXYzine pamoate 25 MG CAPSULE 50 MG PO (21:43)
[2022-01-18] VITALS (20 sets, daily range): BP systolic 108–143; BP diastolic 51–89; PULSE 46–93; RESP 16–41; TEMP 36–37.1; O2SAT 89–100
[2022-01-18] MEDS: LORazepam INJ (*CRX) 2 MG/ML VIAL 0.5 MG IV PUSH ×3 (00:52→17:37)
[2022-01-18] MEDS: ALBUTEROL SULFATE (*SP) INHALER 2 PUFF INHALATION ×4 (02:07→20:45)
[2022-01-18] MEDS: guaiFENesin/DEXTROMETHORPHAN 10 ML UDC PO ×2 (04:53→22:34)
[2022-01-18] MEDS: hydrOXYzine pamoate 25 MG CAPSULE 50 MG PO ×2 (04:53→13:51)
[2022-01-18] MEDS: CENTRAL LINE FLUSH 20 ML IV PUSH (04:53)
[2022-01-18] MEDS: CENTRAL LINE FLUSH 10 ML IV PUSH ×3 (04:53→20:41)
[2022-01-18 05:17] LABS: Basophils Absolute Auto 0.1 K/mm3 (0.0-0.1); Basophils Percent Auto 0.2 % (0.2-1.2); Eosinophils Absolute Auto 0.5 K/mm3 (0-0.3); Hematocrit 32.2 % (37.0-47.0); Hemoglobin 10.8 g/dL (12.0-15.0); Immature Granulocyte Absolute 0.38 K/mm3 (0.00-0.031); Immature Granulocyte Percent A 1.5 % (0-0.5); Lymphocytes Percent Auto 10.9 % (18.3-44.2); Mean Corpuscular HGB Conc 33.5 g/dl (32-36); Mean Corpuscular Hemoglobin 30.9 pg (26-34); Mean Platelet Volume 9.5 fl (7.4-10.4); Monocytes Absolute Auto 0.8 K/mm3 (0.1-0.6); Monocytes Percent Auto 3.4 % (2.6-8.5); Neutrophils Absolute Auto 20.3 K/mm3 (1.3-6.7); Platelet Count Result 417 k/mm3 (150-375); Red Cell Distribution Width 14.9 % (11.5-14.5); White Blood Count 24.8 K/mm3 (4.5-10.0)
[2022-01-18 05:25] LABS: INR 1.6; Prothrombin Time 18.3 Seconds (11.1-14.7)
[2022-01-18 05:42] LABS: Alanine Aminotransferase 98 U/L (4-35); Aspartate Amino Transferase 94 U/L (14-36); Estimated CRCL calculation 82 ml/min; Estimated Glomerular Filt Rate > 60
--- NOTE | 2022-01-18 09:54 | PM.IMPN ---
Progress Note: A&P Assessment and Plan (1) Pneumonia due to COVID-19 virus: Code(s): U07.1 - COVID-19; J12.82 - Pneumonia due to coronavirus disease 2019 Status: Acute Assessment and Plan: Continue Decadron, baricitinib. Continue nebs and guaifenesis for symptomatic relief Ensure Compact TID Prone as tolerated Pt is requiring BIPAP watch repiratory status (2) Community acquired pneumonia: Code(s): J18.9 - Pneumonia, unspecified organism Status: Acute Assessment and Plan: Receiving Zosyn IV (3) Hypertension: Code(s): I10 - Essential (primary) hypertension Status: Chronic Assessment and Plan: Continue with Norvasc, clonidine, losartan, and hydroxyzine Bp is well controlled (4) Gastroesophageal reflux disease: Code(s): K21.9 - Gastro-esophageal reflux disease without esophagitis Status: Chronic Assessment and Plan: Pantoprazole IV. (5) COPD with asthma: Code(s): J44.9 - Chronic obstructive pulmonary disease, unspecified Status: Chronic Assessment and Plan: Continue with inhalers. 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 Plan is to continue with IV antibiotic steroid and remdesivir. Follow closely with labs and x-ray. Support for the oxygen as tolerated 01/16/2022 Patient is improving gradually. Still requiring intermittent use of BiPAP. No new overnight complaints. Plan is to continue with oxygen use, BiPAP use and medication. 01/17/2022 Patient looks much better today. Mild shortness of breath no chest pain Plan is to continue to use intermittent BiPAP and wean off oxygen as tolerated. 01/18/2022 Patient is improving gradually. Still requiring intermittent use of BiPAP. No new overnight complaints. Plan is to continue with oxygen use, BiPAP use and medication. Subjective Date/time seen: 01/18/22 09:54 Interval history: 01/18/2022 Patient is feeling much better today. Shortness of breath is better, no chest pain. Still requiring intermittent use of BiPAP. No chest pain. No abdominal pain, nausea, no vomiting. Mood stable. Review of Systems Review of Systems: All systems reviewed & are unremarkable except as noted in HPI and below (the history and physical examination) Constitutional: Constitutional: Reports as per HPI and Reports no additional constitutional complaints Eyes: Eyes: Reports as per HPI and Reports no additional eye complaints ENT: Reports system reviewed and no additional complaints, except as documented and Reports Normal hearing present Cardiovascular: Cardiovascular: Reports no additional cardiovascular complaints Respiratory: Respiratory: Reports no additional respiratory complaints and Reports no additional respiratory complaints Gastrointestinal: Gastrointestinal: Reports as per HPI and Reports no additional gastrointestinal complaints Musculoskeletal: Musculoskeletal: Reports no additional musculoskeletal complaints Integumentary/Breasts: Skin/Breast: Reports system reviewed and no additional complaints, except as docu and Reports as per HPI Neurologic: Reports system reviewed and no additional complaints, except as documented, Reports as per HPI and Reports Normal hearing present Psychiatric: Psychiatric: Reports no additional psychiatric complaints and Reports as per HPI Endocrine: Endocrine: Reports no additional endocrine complaints Hematologic/Lymphatic: Hematologic/Lymphatic: Reports no additional hematologic/lymphatic complaints Allergic/Immu
[2022-01-18] MEDS: PANTOPRAZOLE SODIUM IV 40 MG VIAL IV PUSH ×2 (09:56→20:48)
[2022-01-18] MEDS: APIXABAN 5 MG TABLET PO ×2 (09:57→20:48)
[2022-01-18] MEDS: cloNIDine HCL 0.2 MG TABLET PO ×3 (09:57→17:36)
[2022-01-18] MEDS: REMDESIVIR 100 MG/NS 250 ML 100 MG/250 ML BAG 250 MG IVPB (09:58)
[2022-01-18] MEDS: amLODIPine BESYLATE 5 MG TABLET PO (09:58)
[2022-01-18] MEDS: FLUTICASONE PROPIONATE 0.05% NA SPR 16 GM BTL (*BKC) 2 SPRAY NASAL (10:00)
[2022-01-18] MEDS: BARICITINIB 2 MG TABLET 4 MG PO (11:02)
[2022-01-18] MEDS: SUMAtriptan SUCCINATE 25 MG TABLET 50 MG PO (13:49)
--- NOTE | 2022-01-18 17:06 | PM.PNPUL ---
Progress Note: A&P Assessment and Plan (1) Pneumonia due to COVID-19 virus: Code(s): U07.1 - COVID-19; J12.82 - Pneumonia due to coronavirus disease 2019 Status: Acute Assessment and Plan: Improved saturation, and RT is now weaning the high flow O2; saturation is 100% on HFNC 60 L and 60%. She has acute hypoxemic respiratory failure related to COVID 19 pneumonia. Patient was vaccinated with 2 doses plus a booster. Patient remaining on high flow and can be weaned. Using BiPAP with sleep, 11/05, FiO2 100%. Recent CTA 01/15/22 showed findings consistent with severe COVID pneumonia. Leukocytosis better 24.8 K (27.6K). Currently on remdesivir dexamethasone and baricitinib. DVT prophylaxis provided by Eliquis she had been on. Will continue with current regimen, monitor CRP, D-dimers. (2) History of asthma: Code(s): Z87.09 - Personal history of other diseases of the respiratory system Status: Acute Assessment and Plan: History of COPD-asthma. She is not wheezing. She has albuterol inhaler Q 6 hours. Subjective Date/time seen: 01/18/22 17:06 51 year old female with COVID pneumonia with acute hypoxemic respiratory failure; remains on BiPAP with sleep; during the day, she is on 60 L/min and 60% high flow with improvement in her shortness of breath. She is coughing little, feels better. She requests dry shampoo for tomorrow. No wheezing. She is not eating much with decreased appetite and limited reserve. She desaturates with exertion. 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 She was transferred here from [facility] Jan 09. There are no imaging studies here documenting the LUE DVT. She does not have a PE on the CTA 01/15/2022. Review of Systems Review of Systems: All systems reviewed & are unremarkable except as noted in HPI and below Exam Narrative: GENERAL APPEARANCE: Well developed, well nourished, alert and cooperative, and appears to be in less respiratory distress while on supplemental oxygen. Better today. CHEST: Normal AP diameter and normal contour without any kyphoscoliosis. LUNGS: diffuse crackles at bases posteriorly with no wheezing CARDIAC: Bradycardic regular rate and rhythm without any murmurs, gallops, rubs. EXTREMITIES: No cyanosis, clubbing or edema. NEUROLOGIC: Alert and oriented x 3. Normal affect. Objective Data Vital Signs Vital Signs: Vital Signs - 24 hr 01/17/22 18:00 01/17/22 20:00 01/17/22 20:50 Temperature 36.5 C Pulse Rate 82 51 L Respiratory Rate 30 H Blood Pressure 130/53 L Pulse Oximetry 95 95 01/17/22 22:00 01/17/22 22:40 01/17/22 23:23 Temperature 36.6 C Pulse Rate 60 63 63 Respiratory Rate 20 33 H Blood Pressure 115/62 Pulse Oximetry 94 95 01/17/22 23:28 01/18/22 00:00 01/18/22 01:16 Temperature Pulse Rate 63 47 L 46 L Respiratory Rate 33 H Blood Pressure Pulse Oximetry 95 01/18/22 02:10 01/18/22 02:52 01/18/22 04:00 Temperature 37.1 C Pulse Rate 55 L 67 Respiratory Rate 22 H 26 H Blood Pressure 143/89 H Pulse Oximetry 100 98 95 01/18/22 05:00 01/18/22 05:12 01/18/22 08:00 Temperature 36.0 C L Pulse Rate 74 54 L 57 L Respiratory Rate 41 H 16 Blood Pressure 127/81 Pulse Oximetry 89 L 99 01/18/22 08:34 01/18/22 10:00 01/18/22 12:00 Temperature 36.3 C L Pulse Rate 69 56 L Respiratory Rate 16 Blood Pressure 123/73 Pulse Oximetry 99 97 01/18/22 13:22 01/18/22 13:26 01/18/22 14:00 Temperature Pulse Rate 59 L Respiratory Rate Blood Pressure Pulse Oximetry 99 97 01/18/22 16:00 Temperature Pulse Rate 56 L Respiratory Rate 16 Blood Pressure Pulse Oximetry 97 Intake/Output Intake/Output: Intake & Output 01/15/22 01/16/22 01/17/22 01/18/22 23:59
[2022-01-18] MEDS: LOSARTAN POTASSIUM 100 MG TABLET PO (20:48)
[2022-01-18] MEDS: MELATONIN 5 MG TABLET 10 MG PO (22:34)
[2022-01-19] VITALS (24 sets, daily range): BP systolic 102–146; BP diastolic 57–80; PULSE 48–81; RESP 18–24; TEMP 35.7–36.6; O2SAT 92–100
[2022-01-19] MEDS: LORazepam INJ (*CRX) 2 MG/ML VIAL 0.5 MG IV PUSH ×4 (01:28→23:19)
[2022-01-19] MEDS: ALBUTEROL SULFATE (*SP) INHALER 2 PUFF INHALATION ×3 (02:00→20:24)
[2022-01-19 04:23] LABS: Basophils Percent Auto 0.2 % (0.2-1.2); Eosinophils Absolute Auto 0.2 K/mm3 (0-0.3); Eosinophils Percent Auto 1.1 % (0-4.4); Hematocrit 30.7 % (37.0-47.0); Hemoglobin 10.2 g/dL (12.0-15.0); Immature Granulocyte Absolute 0.27 K/mm3 (0.00-0.031); Immature Granulocyte Percent A 1.6 % (0-0.5); Lymphocytes Absolute Auto 1.69 K/mm3 (0.9-3.2); Lymphocytes Percent Auto 9.8 % (18.3-44.2); Mean Corpuscular HGB Conc 33.2 g/dl (32-36); Mean Corpuscular Volume 93.3 fl (80-100); Mean Platelet Volume 9.3 fl (7.4-10.4); Monocytes Absolute Auto 0.7 K/mm3 (0.1-0.6); Neutrophils Absolute Auto 14.3 K/mm3 (1.3-6.7); Neutrophils Percent Auto 83.3 % (45.5-73.1); Platelet Count Result 433 k/mm3 (150-375); Red Blood Count 3.29 M/mm3 (4.2-5.4); Red Cell Distribution Width 14.6 % (11.5-14.5); White Blood Count 17.2 K/mm3 (4.5-10.0)
[2022-01-19 04:35] LABS: Alanine Aminotransferase 105 U/L (4-35); Albumin Level 3.2 g/dL (3.5-5.1); Alkaline Phosphatase 229 U/L (38-126); Anion Gap 8 mmol/L (8-16); Aspartate Amino Transferase 85 U/L (14-36); Bilirubin,Total 0.4 mg/dL (0.2-1.3); Blood Urea Nitrogen 14 mg/dL (7-17); Calcium 8.6 mg/dL (8.4-10.2); Carbon Dioxide 25 mmol/L (22-30); Chloride 97 mmol/L (98-107); Estimated CRCL calculation 82 ml/min; Estimated Glomerular Filt Rate > 60; Glucose 113 mg/dL (65-110); Potassium 3.9 mmol/L (3.4-5.0); Sodium 130 mmol/L (137-145)
[2022-01-19 04:41] LABS: INR 1.6
[2022-01-19] MEDS: hydrOXYzine pamoate 25 MG CAPSULE 50 MG PO ×2 (05:18→10:07)
[2022-01-19] MEDS: CENTRAL LINE FLUSH 10 ML IV PUSH ×2 (05:46→17:47)
--- NOTE | 2022-01-19 09:50 | PM.IMPN ---
Progress Note: A&P Assessment and Plan (1) Pneumonia due to COVID-19 virus: Code(s): U07.1 - COVID-19; J12.82 - Pneumonia due to coronavirus disease 2019 Status: Acute Assessment and Plan: Acute hypoxic respiratory failure requiring noninvasive ventilatory support. Likely secondary to COVID-19 pneumonia. She has received a 5 day course of remdesivir here, to be completed today. She is being weaned on high flow O2; saturation is 100% on HFNC 60 L and 60%. . Patient was vaccinated with 2 doses plus a booster. Patient remaining on high flow and can be weaned. Using BiPAP as needed with sleep, 11/05, FiO2 100%. Recent CTA 01/15/22 showed findings consistent with severe COVID pneumonia. Leukocytosis better 17.2 K (27.6K). Currently on remdesivir dexamethasone and baricitinib. DVT prophylaxis provided by Eliquis. Will continue to monitor CRP, D-dimers. Continue Decadron, baricitinib and remdesivir. Continue nebs and guaifenesis for symptomatic relief Ensure Compact TID Encourage Prone position as tolerated Pt is requiring BIPAP watch respiratory status (2) Community acquired pneumonia: Code(s): J18.9 - Pneumonia, unspecified organism Status: Acute Assessment and Plan: Currently on IV antibiotic. Continue Zosyn IV (3) Hypertension: Code(s): I10 - Essential (primary) hypertension Status: Chronic Assessment and Plan: Continue with Norvasc, clonidine, losartan, and hydroxyzine Bp is well controlled; currently patient is acutely ill; target blood pressure 140/90. (4) Gastroesophageal reflux disease: Code(s): K21.9 - Gastro-esophageal reflux disease without esophagitis Status: Chronic Assessment and Plan: Pantoprazole IV. (5) COPD with asthma: Code(s): J44.9 - Chronic obstructive pulmonary disease, unspecified Status: Chronic Assessment and Plan: Continue with inhalers. 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 Plan is to continue with IV antibiotic steroid and remdesivir. Follow closely with labs and x-ray. Support for the oxygen as tolerated 01/16/2022 Patient is improving gradually. Still requiring intermittent use of BiPAP. No new overnight complaints. Plan is to continue with oxygen use, BiPAP use and medication. 01/17/2022 Patient looks much better today. Mild shortness of breath no chest pain Plan is to continue to use intermittent BiPAP and wean off oxygen as tolerated. 01/18/2022 Patient is improving gradually. Still requiring intermittent use of BiPAP. No new overnight complaints. Plan is to continue with oxygen use, BiPAP use and medication. 01/19/2022 Patient is improving gradually. She did not required BiPAP overnight. No new overnight complaints. Plan is to continue with oxygen use, BiPAP use PRN. Subjective Date/time seen: 01/19/22 11:50 S: Patient is seen examined at the bedside. She is feeling a little better today. She was observed to be comfortable at rest. She has not required BiPAP overnight. She still remains significantly short of breath with minimal activity. Sleep is okay. Appetite is preserved. She had headaches improved with somatic Interval history: 01/18/2022 Patient is feeling much better today. Shortness of breath is better, no chest pain. Still requiring intermittent use of BiPAP. No chest pain. No abdominal pain, nausea, no vomiting. Mood stable. Review of Systems Review of Systems: All systems reviewed & are unremarkable except as noted in HPI and be
[2022-01-19] MEDS: SUMAtriptan SUCCINATE 25 MG TABLET 50 MG PO (10:05)
[2022-01-19] MEDS: PANTOPRAZOLE SODIUM IV 40 MG VIAL IV PUSH ×2 (10:05→20:44)
[2022-01-19] MEDS: cloNIDine HCL 0.2 MG TABLET PO ×3 (10:06→17:48)
[2022-01-19] MEDS: amLODIPine BESYLATE 5 MG TABLET PO (10:06)
[2022-01-19] MEDS: APIXABAN 5 MG TABLET PO ×2 (10:07→20:44)
[2022-01-19] MEDS: REMDESIVIR 100 MG/NS 250 ML 100 MG/250 ML BAG 250 MG IVPB (10:09)
[2022-01-19] MEDS: FLUTICASONE PROPIONATE 0.05% NA SPR 16 GM BTL (*BKC) 2 SPRAY NASAL (10:12)
[2022-01-19] MEDS: BARICITINIB 2 MG TABLET 4 MG PO (11:30)
--- NOTE | 2022-01-19 11:53 | PM.PNPUL ---
Progress Note: A&P Assessment and Plan (1) Pneumonia due to COVID-19 virus: Code(s): U07.1 - COVID-19; J12.82 - Pneumonia due to coronavirus disease 2019 Status: Acute Assessment and Plan: Patient with acute hypoxemic respiratory failure related to COVID 19 pneumonia. Patient was vaccinated with 2 doses plus a booster. Respiratory status overall unchanged over the last several days. Chest x-ray done today also showed unchanged bilateral infiltrates. Currently the patient is on high-flow nasal cannula 45 liters/minute. Physical exam is also unchanged with no evidence of wheezing. Unclear whether she has received dexamethasone 6 mg IV for 10 days. I started the patient on dexamethasone 6 mg IV for couple more days. Has completed remdesivir treatment. She is still on baricitinib. Also on antibiotic for possible coinfection. WBC remaining high but trending down. Procalcitonin level not elevated. (2) History of asthma: Code(s): Z87.09 - Personal history of other diseases of the respiratory system Status: Acute Subjective Date/time seen: 01/19/22 11:53 Patient has no new respiratory symptoms. She remains on just high-flow nasal cannula. FiO2 decreased from 60 liters/minute down to 45 liters/minute. She has some cough mostly dry. She has no wheezing fever. Her dyspnea has been stable over the last several days. Patient thinks her breathing is getting better. Review of Systems Review of Systems: All systems reviewed & are unremarkable except as noted in HPI and below (the history and physical examination) Exam Narrative: GENERAL APPEARANCE: Well developed, well nourished, alert and cooperative, and appears to be in less respiratory distress while on supplemental oxygen. CHEST: Normal AP diameter and normal contour without any kyphoscoliosis. LUNGS: diffuse crackles at bases posteriorly with no wheezing CARDIAC: Bradycardic regular rate and rhythm without any murmurs, gallops, rubs. EXTREMITIES: No cyanosis, clubbing or edema. NEUROLOGIC: Alert and oriented x 3. Normal affect. Objective Data Vital Signs Vital Signs: Vital Signs - 24 hr 01/18/22 12:00 01/18/22 13:22 01/18/22 13:26 Temperature 36.3 C L Pulse Rate 56 L Respiratory Rate 16 Blood Pressure 123/73 Pulse Oximetry 97 99 97 01/18/22 14:00 01/18/22 16:00 01/18/22 18:00 Temperature 36.7 C Pulse Rate 59 L 63 73 Respiratory Rate 22 H Blood Pressure 113/67 Pulse Oximetry 96 01/18/22 19:56 01/18/22 20:00 01/18/22 21:36 Temperature 36.7 C Pulse Rate 93 61 54 L Respiratory Rate 22 H 22 H Blood Pressure 127/61 Pulse Oximetry 100 98 98 01/18/22 22:37 01/19/22 00:00 01/19/22 02:00 Temperature 36.4 C Pulse Rate 53 L 50 L 48 L Respiratory Rate 22 H 22 H Blood Pressure 108/51 L Pulse Oximetry 100 98 98 01/19/22 03:00 01/19/22 04:00 01/19/22 06:00 Temperature 36.4 C Pulse Rate 54 L 60 54 L Respiratory Rate 22 H Blood Pressure 133/57 L Pulse Oximetry 96 97 01/19/22 08:00 01/19/22 08:54 01/19/22 09:27 Temperature 36.6 C Pulse Rate 56 L 70 81 Respiratory Rate 22 H 18 24 H Blood Pressure 146/80 H Pulse Oximetry 97 96 01/19/22 09:28 Temperature Pulse Rate 81 Respiratory Rate 24 H Blood Pressure Pulse Oximetry 92 Intake/Output Intake/Output: Intake & Output 01/16/22 01/17/22 01/18/22 01/19/22 23:59 23:59 23:59 23:59 Intake Total 1230 2780 2130 290 Output Total 1800 3200 2625 300 Balance -570 -420 -495 -10 Meds/Results Medications: Active Medications Generic Name Dose Route Start Last Admin Trade Name Darrick PRN Reason Stop Dose Admin Albuterol 2 puff 01/09/22 20:00 01/19/22 09:06 Albuterol Sulfate (*Sp) Inhaler INHALATION 2 puff Q6HRT LINDA Administration Amlodipine Besylate 5 mg 01/10/22 09:00 01/19/22 10:06 Amlodipine Besylate 5 Mg Tablet PO 5 mg DAILY LINDA Administration Apixaban 5 mg 01/09/22 21:00 01/19/22 10:0
--- NOTE | 2022-01-19 13:37 | PCNFU ---
Nutrition Follow-Up Complete: Inadequate oral intake related to COVID as evidenced by reported decreased appetite Goal: Pt to meet 75% of estimated nutritional needs Pt. is progressing towards goal. No new goal at this time. Pt current nutrition is a regular diet. Last recorded weight is 67.2 kg. Recommend re-weighing pt. prior to discharge. Bowel Motility: + BM 01/17/2022 Labs Reviewed: Hgb 10.2, Hct 30.7, Alb 3.2, Cr 0.60, Glu 113 Meds Noted: Albuterol, Norvasc, Eliquis, Cozaar, Protonix, Imitrex, Zosyn Skin: No skin break down at this time. WNL. Additional Notes: Patient is receiving ensure compact TID providing an additional 220 calories and 9 grams of protein with each meal to increase caloric intake. She has been eating on average 72% of meals. She is on Bipap intermittently. Will monitor labs, medications, wt, and reported intake every 7 days
[2022-01-19] MEDS: LOSARTAN POTASSIUM 100 MG TABLET PO (20:44)
[2022-01-19] MEDS: MELATONIN 5 MG TABLET 10 MG PO (20:44)
[2022-01-19] MEDS: guaiFENesin/DEXTROMETHORPHAN 10 ML UDC PO (20:45)
[2022-01-20] VITALS (22 sets, daily range): BP systolic 110–146; BP diastolic 65–76; PULSE 53–92; RESP 18–22; TEMP 36.1–36.6; O2SAT 92–99
[2022-01-20] MEDS: ALBUTEROL SULFATE (*SP) INHALER 2 PUFF INHALATION ×4 (01:55→20:25)
[2022-01-20] MEDS: CENTRAL LINE FLUSH 10 ML IV PUSH ×2 (05:26→21:15)
[2022-01-20] MEDS: hydrOXYzine pamoate 25 MG CAPSULE 50 MG PO ×3 (05:45→21:14)
[2022-01-20 06:20] LABS: Basophils Percent Auto 0.1 % (0.2-1.2); Eosinophils Absolute Auto 0.1 K/mm3 (0-0.3); Eosinophils Percent Auto 0.5 % (0-4.4); Hematocrit 31.3 % (37.0-47.0); Hemoglobin 10.6 g/dL (12.0-15.0); Immature Granulocyte Absolute 0.29 K/mm3 (0.00-0.031); Lymphocytes Absolute Auto 1.69 K/mm3 (0.9-3.2); Lymphocytes Percent Auto 11.7 % (18.3-44.2); Mean Corpuscular HGB Conc 33.9 g/dl (32-36); Mean Corpuscular Hemoglobin 30.6 pg (26-34); Mean Corpuscular Volume 90.5 fl (80-100); Mean Platelet Volume 9.3 fl (7.4-10.4); Monocytes Absolute Auto 0.4 K/mm3 (0.1-0.6); Monocytes Percent Auto 2.9 % (2.6-8.5); Neutrophils Absolute Auto 11.9 K/mm3 (1.3-6.7); Neutrophils Percent Auto 82.8 % (45.5-73.1); Platelet Count Result 475 k/mm3 (150-375); Red Blood Count 3.46 M/mm3 (4.2-5.4); Red Cell Distribution Width 14.7 % (11.5-14.5); White Blood Count 14.4 K/mm3 (4.5-10.0)
[2022-01-20 06:31] LABS: Hemoglobin A1C 5.2 % (<5.7)
[2022-01-20 06:34] LABS: Alanine Aminotransferase 85 U/L (4-35); Aspartate Amino Transferase 66 U/L (14-36); CRP 1.5 mg/dL (<1.0); Estimated CRCL calculation 97 ml/min; Estimated Glomerular Filt Rate > 60
[2022-01-20 06:59] LABS: Thyroid Stimulating Hormone 0.769 uIU/mL (0.465-4.680)
[2022-01-20] MEDS: cloNIDine HCL 0.2 MG TABLET PO ×3 (08:13→17:24)
[2022-01-20] MEDS: PANTOPRAZOLE SODIUM IV 40 MG VIAL IV PUSH (08:13)
[2022-01-20] MEDS: APIXABAN 5 MG TABLET PO ×2 (08:13→21:15)
[2022-01-20] MEDS: FLUTICASONE PROPIONATE 0.05% NA SPR 16 GM BTL (*BKC) 2 SPRAY NASAL (08:14)
[2022-01-20] MEDS: amLODIPine BESYLATE 5 MG TABLET PO (08:14)
--- NOTE | 2022-01-20 10:04 | PM.PNPUL ---
Progress Note: A&P Assessment and Plan (1) Pneumonia due to COVID-19 virus: Code(s): U07.1 - COVID-19; J12.82 - Pneumonia due to coronavirus disease 2019 Status: Acute Assessment and Plan: Patient with acute hypoxemic respiratory failure related to COVID 19 pneumonia. Patient was vaccinated with 2 doses plus a booster. Respiratory status overall unchanged over the last several days. Chest x-ray done today also showed unchanged bilateral infiltrates. Currently the patient is on high-flow nasal cannula 45 liters/minute. Physical exam is also unchanged with no evidence of wheezing. Unclear whether she has received dexamethasone 6 mg IV for 10 days. I started the patient on dexamethasone 6 mg IV for couple more days. Has completed remdesivir treatment. She is still on baricitinib. Also on antibiotic for possible coinfection. WBC remaining high but trending down. CRP also trending down. Procalcitonin level not elevated. I would discontinue Zosyn. New chest x-ray in a.m. (2) History of asthma: Code(s): Z87.09 - Personal history of other diseases of the respiratory system Status: Acute Subjective Date/time seen: 01/20/22 10:04 Patient without any new respiratory complaints. FiO2 has now decreased down to 40%. patient thinks her breathing is getting better. She has been afebrile. She is still on antibiotic for possible bacterial coinfection. Review of Systems Review of Systems: All systems reviewed & are unremarkable except as noted in HPI and below (the history and physical examination) Exam Narrative: GENERAL APPEARANCE: Well developed, well nourished, alert and cooperative, and appears to be in less respiratory distress while on supplemental oxygen. CHEST: Normal AP diameter and normal contour without any kyphoscoliosis. LUNGS: diffuse crackles at bases posteriorly with no wheezing CARDIAC: Bradycardic regular rate and rhythm without any murmurs, gallops, rubs. EXTREMITIES: No cyanosis, clubbing or edema. NEUROLOGIC: Alert and oriented x 3. Normal affect. Objective Data Vital Signs Vital Signs: Vital Signs - 24 hr 01/19/22 12:00 01/19/22 12:39 01/19/22 13:58 Temperature 36.3 C L Pulse Rate 74 55 L 74 Respiratory Rate 22 H 18 22 H Blood Pressure 121/67 Pulse Oximetry 97 96 93 01/19/22 14:00 01/19/22 15:50 01/19/22 16:00 Temperature 35.7 C L Pulse Rate 72 75 76 Respiratory Rate 18 22 H Blood Pressure 111/63 Pulse Oximetry 95 97 01/19/22 18:00 01/19/22 19:53 01/19/22 20:00 Temperature Pulse Rate 65 65 58 L Respiratory Rate 20 Blood Pressure Pulse Oximetry 97 01/19/22 20:05 01/19/22 20:25 01/19/22 21:15 Temperature 36.6 C Pulse Rate 69 Respiratory Rate 20 Blood Pressure 144/75 H Pulse Oximetry 97 93 100 01/19/22 22:00 01/19/22 23:08 01/20/22 00:00 Temperature 36.5 C Pulse Rate 50 L 69 55 L Respiratory Rate 22 H 20 Blood Pressure 102/80 Pulse Oximetry 94 97 01/20/22 02:00 01/20/22 04:00 01/20/22 04:39 Temperature 36.5 C Pulse Rate 79 54 L 57 L Respiratory Rate 20 20 Blood Pressure 130/65 Pulse Oximetry 97 98 01/20/22 06:00 01/20/22 08:00 01/20/22 08:02 Temperature 36.1 C L Pulse Rate 67 68 Respiratory Rate 19 Blood Pressure 124/75 Pulse Oximetry 93 98 01/20/22 08:45 Temperature Pulse Rate Respiratory Rate Blood Pressure Pulse Oximetry 96 Intake/Output Intake/Output: Intake & Output 01/17/22 01/18/22 01/19/22 01/20/22 23:59 23:59 23:59 23:59 Intake Total 2780 2130 1040 450 Output Total 3200 2625 1025 700 Balance -420 -495 15 -250 Meds/Results Medications: Active Medications Generic Name Dose Route Start Last Admin Trade Name Freq PRN Reason Stop Dose Admin Albuterol 2 puff 01/09/22 20:00 01/20/22 08:45 Albuterol Sulfate (*Sp) Inhaler INHALATION 2 puff Q6HRT LINDA Administration Amlodipine Besylate 5 mg 01/10/22 09:00 01/20/22 08:14 Amlod
--- NOTE | 2022-01-20 10:37 | PM.IMPN ---
Progress Note: A&P Assessment and Plan (1) Pneumonia due to COVID-19 virus: Code(s): U07.1 - COVID-19; J12.82 - Pneumonia due to coronavirus disease 2019 Status: Acute Assessment and Plan: Acute hypoxic respiratory failure requiring noninvasive ventilatory support, secondary to COVID-19 pneumonia. She has received a 10- day course of remdesivir completed yesterday. She continues to require high flow and he slowly being weaned. Using BiPAP as needed with sleep, 11/05, FiO2 100%. Recent CTA 01/15/22 showed findings consistent with severe COVID pneumonia. Leukocytosis better 17.2 K (27.6K). Currently on dexamethasone and baricitinib. DVT prophylaxis provided by Eliquis. Will continue to monitor CRP, D-dimers. Continue Decadron, baricitinib and remdesivir. Continue nebs and guaifenesis for symptomatic relief Ensure Compact TID Encourage Prone position as tolerated Pt is requiring BIPAP watch respiratory status (2) Community acquired pneumonia: Code(s): J18.9 - Pneumonia, unspecified organism Status: Acute Assessment and Plan: Currently on IV antibiotic. Continue Zosyn IV (3) Hypertension: Code(s): I10 - Essential (primary) hypertension Status: Chronic Assessment and Plan: Continue with Norvasc, clonidine, losartan, and hydroxyzine Bp is well controlled; currently patient is acutely ill; target blood pressure 140/90. (4) Gastroesophageal reflux disease: Code(s): K21.9 - Gastro-esophageal reflux disease without esophagitis Status: Chronic Assessment and Plan: Continue Pantoprazole IV. (5) COPD with asthma: Code(s): J44.9 - Chronic obstructive pulmonary disease, unspecified Status: Chronic Assessment and Plan: Continue with inhalers. 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 Plan is to continue with IV antibiotic steroid and remdesivir. Follow closely with labs and x-ray. Support for the oxygen as tolerated 01/16/2022 Patient is improving gradually. Still requiring intermittent use of BiPAP. No new overnight complaints. Plan is to continue with oxygen use, BiPAP use and medication. 01/17/2022 Patient looks much better today. Mild shortness of breath no chest pain Plan is to continue to use intermittent BiPAP and wean off oxygen as tolerated. 01/18/2022 Patient is improving gradually. Still requiring intermittent use of BiPAP. No new overnight complaints. Plan is to continue with oxygen use, BiPAP use and medication. 01/19/2022 Patient is improving gradually. She did not required BiPAP overnight. No new overnight complaints. Plan is to continue with oxygen use, BiPAP use PRN. 01/20/2022 Patient is improving gradually. She did not required BiPAP overnight. No new overnight complaints. Plan is to continue with oxygen use, BiPAP use PRN. Subjective Date/time seen: 01/20/22 10:37 S: Patient was seen and examined at the bedside.Patient is feeling much better today; she did not require BiPAP overnight. Interval history: 01/18/2022 Patient is feeling much better today. Shortness of breath is better, no chest pain. Still requiring intermittent use of BiPAP. No chest pain. No abdominal pain, nausea, no vomiting. Mood stable. Review of Systems Review of Systems: All systems reviewed & are unremarkable except as noted in HPI and below (the history and physical examination) Constitutional: Constitutional: Reports as per HPI and Reports no additional constitutional complaints Eyes: Eyes: Reports
[2022-01-20] MEDS: BARICITINIB 2 MG TABLET 4 MG PO (11:19)
[2022-01-20] MEDS: LORazepam (*CRX) 0.5 MG TABLET PO ×3 (11:19→23:44)
[2022-01-20] MEDS: SUMAtriptan SUCCINATE 25 MG TABLET 50 MG PO (11:29)
[2022-01-20 11:36] LABS: D Dimer < 0.22 ug/mL (<0.48)
[2022-01-20] MEDS: polyethylene glycoL 3350 17 GM POWD.PACK PO (14:02)
[2022-01-20] MEDS: MELATONIN 5 MG TABLET 10 MG PO (21:14)
[2022-01-20] MEDS: LOSARTAN POTASSIUM 100 MG TABLET PO (21:15)
[2022-01-20] MEDS: guaiFENesin/DEXTROMETHORPHAN 10 ML UDC PO (22:36)
[2022-01-20] MEDS: TOLNAFTATE 1% POWDER 45 GM BTL 1 APPLIC TOPICAL (23:42)
[2022-01-21] VITALS (17 sets, daily range): BP systolic 121–147; BP diastolic 64–88; PULSE 56–98; RESP 20–22; TEMP 36.4–37; O2SAT 90–99
[2022-01-21] MEDS: ALBUTEROL SULFATE (*SP) INHALER 2 PUFF INHALATION ×4 (02:32→19:29)
[2022-01-21] MEDS: SUMAtriptan SUCCINATE 25 MG TABLET 50 MG PO (04:13)
[2022-01-21] MEDS: CENTRAL LINE FLUSH 10 ML IV PUSH ×2 (05:13→21:10)
[2022-01-21] MEDS: LORazepam (*CRX) 0.5 MG TABLET PO ×4 (05:15→21:32)
[2022-01-21 06:00] LABS: Basophils Percent Auto 0.1 % (0.2-1.2); Eosinophils Absolute Auto 0.1 K/mm3 (0-0.3); Eosinophils Percent Auto 0.7 % (0-4.4); Hematocrit 30.6 % (37.0-47.0); Hemoglobin 10.3 g/dL (12.0-15.0); Immature Granulocyte Percent A 2.5 % (0-0.5); Lymphocytes Absolute Auto 2.07 K/mm3 (0.9-3.2); Lymphocytes Percent Auto 12.8 % (18.3-44.2); Mean Corpuscular HGB Conc 33.7 g/dl (32-36); Mean Corpuscular Hemoglobin 31.1 pg (26-34); Mean Corpuscular Volume 92.4 fl (80-100); Mean Platelet Volume 9.3 fl (7.4-10.4); Monocytes Absolute Auto 0.9 K/mm3 (0.1-0.6); Monocytes Percent Auto 5.8 % (2.6-8.5); Neutrophils Absolute Auto 12.6 K/mm3 (1.3-6.7); Neutrophils Percent Auto 78.1 % (45.5-73.1); Platelet Count Result 499 k/mm3 (150-375); Red Blood Count 3.31 M/mm3 (4.2-5.4); Red Cell Distribution Width 14.8 % (11.5-14.5); White Blood Count 16.1 K/mm3 (4.5-10.0)
[2022-01-21 06:12] LABS: Alanine Aminotransferase 97 U/L (4-35); Aspartate Amino Transferase 87 U/L (14-36); Estimated CRCL calculation 82 ml/min; Estimated Glomerular Filt Rate > 60
[2022-01-21] MEDS: cloNIDine HCL 0.2 MG TABLET PO ×3 (08:25→17:43)
[2022-01-21] MEDS: APIXABAN 5 MG TABLET PO ×2 (08:25→21:09)
[2022-01-21] MEDS: amLODIPine BESYLATE 5 MG TABLET PO (08:25)
[2022-01-21] MEDS: hydrOXYzine pamoate 25 MG CAPSULE 50 MG PO ×3 (08:25→21:32)
[2022-01-21] MEDS: polyethylene glycoL 3350 17 GM POWD.PACK PO (08:26)
[2022-01-21] MEDS: PANTOPRAZOLE SODIUM IV 40 MG VIAL IV PUSH (08:26)
[2022-01-21] MEDS: FLUTICASONE PROPIONATE 0.05% NA SPR 16 GM BTL (*BKC) 2 SPRAY NASAL (08:26)
--- NOTE | 2022-01-21 08:48 | PM.IMPN ---
Progress Note: A&P Assessment and Plan (1) Pneumonia due to COVID-19 virus: Code(s): U07.1 - COVID-19; J12.82 - Pneumonia due to coronavirus disease 2019 Status: Acute Assessment and Plan: Acute hypoxic respiratory failure requiring noninvasive ventilatory support, secondary to COVID-19 pneumonia. The patient has been improved healing slowly. She has received a 10- day course of remdesivir completed yesterday. She continues to require high flow and intermittent non-rebreather support with activity; she is slowly being weaned. Using BiPAP as needed with sleep, 11/05, FiO2 100%. Recent CTA 01/15/22 showed findings consistent with severe COVID pneumonia. Leukocytosis better 17.2 K (27.6K). Currently on dexamethasone and baricitinib. DVT prophylaxis provided by Eliquis. Will continue to monitor CRP, D-dimers. Continue Decadron, baricitinib and remdesivir. Continue nebs and guaifenesis for symptomatic relief Ensure Compact TID Encourage Prone position as tolerated Pt is requiring BIPAP watch respiratory status (2) Community acquired pneumonia: Code(s): J18.9 - Pneumonia, unspecified organism Status: Acute Assessment and Plan: Currently on IV antibiotic. Continue Zosyn IV (3) Hypertension: Code(s): I10 - Essential (primary) hypertension Status: Chronic Assessment and Plan: Continue with Norvasc, clonidine, losartan, and hydroxyzine Bp is well controlled; currently patient is acutely ill; target blood pressure 140/90. (4) Gastroesophageal reflux disease: Code(s): K21.9 - Gastro-esophageal reflux disease without esophagitis Status: Chronic Assessment and Plan: Continue Pantoprazole IV. (5) COPD with asthma: Code(s): J44.9 - Chronic obstructive pulmonary disease, unspecified Status: Chronic Assessment and Plan: Continue with inhalers. 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 Plan is to continue with IV antibiotic steroid and remdesivir. Follow closely with labs and x-ray. Support for the oxygen as tolerated 01/16/2022 Patient is improving gradually. Still requiring intermittent use of BiPAP. No new overnight complaints. Plan is to continue with oxygen use, BiPAP use and medication. 01/17/2022 Patient looks much better today. Mild shortness of breath no chest pain Plan is to continue to use intermittent BiPAP and wean off oxygen as tolerated. 01/18/2022 Patient is improving gradually. Still requiring intermittent use of BiPAP. No new overnight complaints. Plan is to continue with oxygen use, BiPAP use and medication. 01/19/2022 Patient is improving gradually. She did not required BiPAP overnight. No new overnight complaints. Plan is to continue with oxygen use, BiPAP use PRN. 01/20/2022 Patient is improving gradually. She did not required BiPAP overnight. No new overnight complaints. Plan is to continue with oxygen use, BiPAP use PRN. 01/21/2022 Patient is improving gradually. She did not required BiPAP overnight. No new overnight complaints. Plan is to continue with oxygen use, BiPAP use PRN. Subjective Date/time seen: 01/21/22 08:18 S: The patient was seen and examined at the bedside. She is doing a little better every day. She had a migraine headache last night, now resolved. She complains of dry eyes. Appetite is preserved. She denies any complaints at the time of my encounter. Review of Systems Review of Systems: All systems reviewed & are unremarkable except as noted in HPI an
--- NOTE | 2022-01-21 09:39 | PM.PNPUL ---
Progress Note: A&P Assessment and Plan (1) Pneumonia due to COVID-19 virus: Code(s): U07.1 - COVID-19; J12.82 - Pneumonia due to coronavirus disease 2019 Status: Acute Assessment and Plan: Patient with acute hypoxemic respiratory failure related to COVID 19 pneumonia. Patient was vaccinated with 2 doses plus a booster. Respiratory status seems to have improved over the last several days. there is improvement of lung auscultatory findings, gas exchange and inflammatory indices. WBC remaining high but trending down. CRP also trending down. Procalcitonin level not elevated. Chest x-ray shows no significant improvement. I would discontinue Zosyn. I have discontinued dexamethasone. Continue otherwise with same treatment. (2) History of asthma: Code(s): Z87.09 - Personal history of other diseases of the respiratory system Status: Acute Subjective Date/time seen: 01/21/22 09:39 patient without any new respiratory symptoms. Remaining on high flow nasal cannula. she stated breathing is getting better. Review of Systems Review of Systems: All systems reviewed & are unremarkable except as noted in HPI and below (the history and physical examination) Exam Narrative: GENERAL APPEARANCE: Well developed, well nourished, alert and cooperative, and appears to be in less respiratory distress while on supplemental oxygen. CHEST: Normal AP diameter and normal contour without any kyphoscoliosis. LUNGS: Rare crackles at bases posteriorly with no wheezing CARDIAC: Bradycardic regular rate and rhythm without any murmurs, gallops, rubs. EXTREMITIES: No cyanosis, clubbing or edema. NEUROLOGIC: Alert and oriented x 3. Normal affect. Objective Data Vital Signs Vital Signs: Vital Signs - 24 hr 01/20/22 10:00 01/20/22 11:45 01/20/22 12:00 Temperature Pulse Rate 65 76 Respiratory Rate Blood Pressure Pulse Oximetry 93 01/20/22 12:36 01/20/22 14:00 01/20/22 14:50 Temperature 36.3 C L Pulse Rate 65 77 Respiratory Rate 18 Blood Pressure 117/70 Pulse Oximetry 99 97 01/20/22 16:00 01/20/22 17:04 01/20/22 18:00 Temperature 36.3 C L Pulse Rate 74 86 60 Respiratory Rate 20 Blood Pressure 110/68 Pulse Oximetry 93 92 01/20/22 19:56 01/20/22 20:00 01/20/22 20:25 Temperature 36.6 C Pulse Rate 54 L 53 L Respiratory Rate 22 H Blood Pressure 146/70 H Pulse Oximetry 99 99 97 01/20/22 22:00 01/20/22 23:20 01/21/22 00:00 Temperature 36.6 C Pulse Rate 65 53 L 56 L Respiratory Rate 20 Blood Pressure 126/76 Pulse Oximetry 99 99 01/21/22 02:00 01/21/22 04:00 01/21/22 06:00 Temperature 36.7 C Pulse Rate 58 L 60 56 L Respiratory Rate 22 H Blood Pressure 147/78 H Pulse Oximetry 96 01/21/22 08:00 01/21/22 08:28 Temperature 37.0 C Pulse Rate 67 Respiratory Rate 20 Blood Pressure 141/84 H Pulse Oximetry 93 96 Intake/Output Intake/Output: Intake & Output 01/18/22 01/19/22 01/20/22 01/21/22 23:59 23:59 23:59 23:59 Intake Total 2130 1040 1820 450 Output Total 2625 1025 1750 1350 Balance -495 15 70 -900 Meds/Results Medications: Active Medications Generic Name Dose Route Start Last Admin Trade Name Freq PRN Reason Stop Dose Admin Albuterol 2 puff 01/09/22 20:00 01/21/22 08:10 Albuterol Sulfate (*Sp) Inhaler INHALATION 2 puff Q6HRT LINDA Administration Amlodipine Besylate 5 mg 01/10/22 09:00 01/21/22 08:25 Amlodipine Besylate 5 Mg Tablet PO 5 mg DAILY LINDA Administration Apixaban 5 mg 01/09/22 21:00 01/21/22 08:25 Apixaban 5 Mg Tablet PO 5 mg Q12HR LINDA Administration Baricitinib 4 mg 01/10/22 11:00 01/20/22 11:19 Baricitinib 2 Mg Tablet PO 01/22/22 11:01 4 mg DAILY@11 LINDA Administration Clonidine HCl 0.2 mg 01/09/22 19:10 01/21/22 08:25 Clonidine Hcl 0.2 Mg Tablet PO 0.2 mg TID LINDA Administration Fluticasone Propionate 2 spray 01/10/22 09:00 01/21/22 0
[2022-01-21] MEDS: BARICITINIB 2 MG TABLET 4 MG PO (10:24)
[2022-01-21] MEDS: ARTIFICIAL TEARS OPHTH SOLN 15 ML BOTTLE 1 DROP EACH EYE (14:09)
[2022-01-21] MEDS: LOSARTAN POTASSIUM 100 MG TABLET PO (21:09)
[2022-01-21] MEDS: MELATONIN 5 MG TABLET 10 MG PO (21:10)
[2022-01-22] VITALS (18 sets, daily range): BP systolic 103–139; BP diastolic 62–88; PULSE 61–95; RESP 12–26; TEMP 36.1–37.2; O2SAT 91–99
[2022-01-22] MEDS: ALBUTEROL SULFATE (*SP) INHALER 2 PUFF INHALATION ×4 (01:57→20:37)
[2022-01-22] MEDS: LORazepam (*CRX) 0.5 MG TABLET PO ×4 (03:34→21:12)
[2022-01-22] MEDS: CENTRAL LINE FLUSH 10 ML IV PUSH ×3 (05:25→21:12)
[2022-01-22 05:45] LABS: Basophils Percent Auto 0.2 % (0.2-1.2); Eosinophils Absolute Auto 0.2 K/mm3 (0-0.3); Eosinophils Percent Auto 0.9 % (0-4.4); Hematocrit 30.5 % (37.0-47.0); Hemoglobin 10.4 g/dL (12.0-15.0); Immature Granulocyte Absolute 0.56 K/mm3 (0.00-0.031); Immature Granulocyte Percent A 3.2 % (0-0.5); Lymphocytes Absolute Auto 3.03 K/mm3 (0.9-3.2); Lymphocytes Percent Auto 17.2 % (18.3-44.2); Mean Corpuscular HGB Conc 34.1 g/dl (32-36); Mean Corpuscular Hemoglobin 30.9 pg (26-34); Mean Corpuscular Volume 90.5 fl (80-100); Monocytes Absolute Auto 0.7 K/mm3 (0.1-0.6); Neutrophils Absolute Auto 13.2 K/mm3 (1.3-6.7); Neutrophils Percent Auto 74.5 % (45.5-73.1); Platelet Count Result 470 k/mm3 (150-375); Red Blood Count 3.37 M/mm3 (4.2-5.4); White Blood Count 17.7 K/mm3 (4.5-10.0)
[2022-01-22 06:06] LABS: Alanine Aminotransferase 99 U/L (4-35); Aspartate Amino Transferase 102 U/L (14-36); Estimated CRCL calculation 97 ml/min; Estimated Glomerular Filt Rate > 60
--- NOTE | 2022-01-22 09:48 | PM.IMPN ---
Progress Note: A&P Assessment and Plan (1) Pneumonia due to COVID-19 virus: Code(s): U07.1 - COVID-19; J12.82 - Pneumonia due to coronavirus disease 2019 Status: Acute Assessment and Plan: Acute hypoxic respiratory failure requiring noninvasive ventilatory support, secondary to COVID-19 pneumonia. The patient has been improved healing slowly. She has received a 10- day course of remdesivir completed yesterday. She continues to require high flow and intermittent non-rebreather support with activity; she is slowly being weaned. Using BiPAP as needed with sleep, 11/05, FiO2 100%. Recent CTA 01/15/22 showed findings consistent with severe COVID pneumonia. Leukocytosis better 17.2 K (27.6K). Currently on dexamethasone and baricitinib. DVT prophylaxis provided by Eliquis. Will continue to monitor CRP, D-dimers. Continue Decadron, baricitinib and remdesivir. Continue nebs and guaifenesis for symptomatic relief Ensure Compact TID Encourage Prone position as tolerated Pt is requiring BIPAP watch respiratory status (2) Community acquired pneumonia: Code(s): J18.9 - Pneumonia, unspecified organism Status: Acute Assessment and Plan: Currently on IV antibiotic. Continue Zosyn IV (3) Hypertension: Code(s): I10 - Essential (primary) hypertension Status: Chronic Assessment and Plan: Continue with Norvasc, clonidine, losartan, and hydroxyzine Bp is well controlled; currently patient is acutely ill; target blood pressure 140/90. (4) Gastroesophageal reflux disease: Code(s): K21.9 - Gastro-esophageal reflux disease without esophagitis Status: Chronic Assessment and Plan: Continue Pantoprazole PO (5) COPD with asthma: Code(s): J44.9 - Chronic obstructive pulmonary disease, unspecified Status: Chronic Assessment and Plan: Continue with inhalers. 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 Plan is to continue with IV antibiotic steroid and remdesivir. Follow closely with labs and x-ray. Support for the oxygen as tolerated 01/16/2022 Patient is improving gradually. Still requiring intermittent use of BiPAP. No new overnight complaints. Plan is to continue with oxygen use, BiPAP use and medication. 01/17/2022 Patient looks much better today. Mild shortness of breath no chest pain Plan is to continue to use intermittent BiPAP and wean off oxygen as tolerated. 01/18/2022 Patient is improving gradually. Still requiring intermittent use of BiPAP. No new overnight complaints. Plan is to continue with oxygen use, BiPAP use and medication. 01/19/2022 Patient is improving gradually. She did not required BiPAP overnight. No new overnight complaints. Plan is to continue with oxygen use, BiPAP use PRN. 01/20/2022 Patient is improving gradually. She did not required BiPAP overnight. No new overnight complaints. Plan is to continue with oxygen use, BiPAP use PRN. 01/21/2022 Patient is improving gradually. She did not required BiPAP overnight. No new overnight complaints. Plan is to continue with oxygen use, BiPAP use PRN. 01/22/2022 Patient is improving gradually. She did not required BiPAP overnight. No new overnight complaints. Plan is to continue with HFNC oxygen use, BiPAP use PRN. Subjective Date/time seen: 01/22/22 08:48 S: Patient was seen examined at the bedside. She is feeling a little better. She will attempt pruning position later today. Review of Systems Review of Systems: All systems reviewed & a
[2022-01-22] MEDS: cloNIDine HCL 0.2 MG TABLET PO ×2 (10:01→14:23)
[2022-01-22] MEDS: hydrOXYzine pamoate 25 MG CAPSULE 50 MG PO ×3 (10:01→20:16)
[2022-01-22] MEDS: PANTOPRAZOLE 40 MG TABLET PO (10:02)
[2022-01-22] MEDS: BARICITINIB 2 MG TABLET 4 MG PO (10:03)
[2022-01-22] MEDS: amLODIPine BESYLATE 5 MG TABLET PO (10:03)
[2022-01-22] MEDS: APIXABAN 5 MG TABLET PO ×2 (10:03→20:17)
[2022-01-22] MEDS: FLUTICASONE PROPIONATE 0.05% NA SPR 16 GM BTL (*BKC) 2 SPRAY NASAL (10:04)
[2022-01-22] MEDS: guaiFENesin/DEXTROMETHORPHAN 10 ML UDC PO (10:22)
--- NOTE | 2022-01-22 12:33 | PM.PNPUL ---
Progress Note: A&P Assessment and Plan (1) Pneumonia due to COVID-19 virus: Code(s): U07.1 - COVID-19; J12.82 - Pneumonia due to coronavirus disease 2019 Status: Acute Assessment and Plan: Patient with acute hypoxemic respiratory failure related to COVID 19 pneumonia. Patient was vaccinated with 2 doses plus a booster. Respiratory status seems to have improved over the last several days. there is improvement of lung auscultatory findings, gas exchange and inflammatory indices. WBC remaining high but trending down. CRP also trending down. Procalcitonin level not elevated. Chest x-ray Done early today shows significant clearing compared to the x-ray from about 1 week ago. Continue with same treatment. encourage out of bed to chair. (2) History of asthma: Code(s): Z87.09 - Personal history of other diseases of the respiratory system Status: Acute Subjective Date/time seen: 01/22/22 12:33 Patient stated breathing is getting better. She has no new respiratory symptoms. She continues to have mild dry cough but no wheezing fever sputum production or night sweats. FiO2 has decreased down to 35% from previous values of over 70%. patient tolerating high-flow nasal cannula with no issues. Review of Systems Review of Systems: All systems reviewed & are unremarkable except as noted in HPI and below (the history and physical examination) Exam Narrative: GENERAL APPEARANCE: Well developed, well nourished, alert and cooperative, and appears to be in less respiratory distress while on supplemental oxygen. CHEST: Normal AP diameter and normal contour without any kyphoscoliosis. LUNGS: Rare crackles at bases posteriorly with no wheezing CARDIAC: regular rate and rhythm without any murmurs, gallops, rubs. EXTREMITIES: No cyanosis, clubbing or edema. NEUROLOGIC: Alert and oriented x 3. Normal affect. Objective Data Vital Signs Vital Signs: Vital Signs - 24 hr 01/21/22 14:00 01/21/22 14:42 01/21/22 16:00 Temperature 36.4 C Pulse Rate 68 72 Respiratory Rate Blood Pressure 134/67 Pulse Oximetry 95 96 01/21/22 17:36 01/21/22 19:29 01/21/22 20:00 Temperature 36.7 C Pulse Rate 61 77 Respiratory Rate 20 Blood Pressure 145/88 H Pulse Oximetry 97 93 01/21/22 22:00 01/21/22 23:29 01/22/22 00:00 Temperature 36.7 C Pulse Rate 79 76 61 Respiratory Rate 22 H Blood Pressure 127/78 Pulse Oximetry 96 01/22/22 01:58 01/22/22 02:00 01/22/22 04:00 Temperature 36.6 C Pulse Rate 76 93 Respiratory Rate 22 H Blood Pressure 130/88 Pulse Oximetry 95 92 01/22/22 06:00 01/22/22 08:00 01/22/22 09:41 Temperature 36.3 C L Pulse Rate 76 78 92 Respiratory Rate 16 26 H Blood Pressure 139/82 Pulse Oximetry 97 01/22/22 10:00 01/22/22 12:00 Temperature 37.2 C Pulse Rate 90 94 Respiratory Rate 24 H Blood Pressure 138/78 Pulse Oximetry 91 Intake/Output Intake/Output: Intake & Output 01/19/22 01/20/22 01/21/22 01/22/22 23:59 23:59 23:59 23:59 Intake Total 1040 1820 1240 1060 Output Total 1025 1750 2050 800 Balance 15 70 -810 260 Meds/Results Medications: Active Medications Generic Name Dose Route Start Last Admin Trade Name Freq PRN Reason Stop Dose Admin Albuterol 2 puff 01/09/22 20:00 01/22/22 09:30 Albuterol Sulfate (*Sp) Inhaler INHALATION 2 puff Q6HRT LINDA Administration Amlodipine Besylate 5 mg 01/10/22 09:00 01/22/22 10:03 Amlodipine Besylate 5 Mg Tablet PO 5 mg DAILY LINDA Administration Apixaban 5 mg 01/09/22 21:00 01/22/22 10:03 Apixaban 5 Mg Tablet PO 5 mg Q12HR LINDA Administration Artificial Tears 1 drop 01/21/22 11:19 01/21/22 14:09 Artificial Tears Ophth Soln 15 Ml Bottle EACH EYE 1 drop QID PRN Administration Dry Eye(s) Clonidine HCl 0.2 mg 01/09/22 19:10 01/22/22 10:01 Clonidine Hcl 0.2 Mg Tablet PO 0.2 mg TID LINDA Administration Fluticasone Propion
--- NOTE | 2022-01-22 14:08 | PCCCNOTE ---
On 01/22/22, the student, Kait Henderson, provided care and completed [facility] documentation on this patient. I have reviewed the student's documentation and agree with the findings.
[2022-01-22] MEDS: LOSARTAN POTASSIUM 100 MG TABLET PO (20:15)
[2022-01-22] MEDS: MELATONIN 5 MG TABLET 10 MG PO (20:16)
[2022-01-23] VITALS (18 sets, daily range): BP systolic 92–142; BP diastolic 58–78; PULSE 68–109; RESP 18–24; TEMP 36.1–36.8; O2SAT 92–99
[2022-01-23] MEDS: guaiFENesin/DEXTROMETHORPHAN 10 ML UDC PO ×3 (00:16→20:55)
[2022-01-23] MEDS: ALBUTEROL SULFATE (*SP) INHALER 2 PUFF INHALATION ×4 (02:05→20:28)
[2022-01-23] MEDS: LORazepam (*CRX) 0.5 MG TABLET PO ×4 (03:07→23:46)
[2022-01-23] MEDS: CENTRAL LINE FLUSH 10 ML IV PUSH ×3 (05:45→20:55)
[2022-01-23] MEDS: hydrOXYzine pamoate 25 MG CAPSULE 50 MG PO ×3 (05:55→20:55)
--- NOTE | 2022-01-23 09:00 | PM.IMPN ---
Progress Note: A&P Assessment and Plan (1) Pneumonia due to COVID-19 virus: Code(s): U07.1 - COVID-19; J12.82 - Pneumonia due to coronavirus disease 2019 Status: Acute Assessment and Plan: Acute hypoxic respiratory failure requiring noninvasive ventilatory support, secondary to COVID-19 pneumonia. F heart requirement is down to 30%, which is very encouraging. The patient has been improved healing slowly. She has received a 10- day course of remdesivir completed yesterday. She continues to require high flow and intermittent non-rebreather support with activity; she is slowly being weaned. Using BiPAP as needed with sleep, 11/05, FiO2 100%. Recent CTA 01/15/22 showed findings consistent with severe COVID pneumonia. Leukocytosis better 17.2 K (27.6K). Currently on dexamethasone and baricitinib. DVT prophylaxis provided by Eliquis. Will continue to monitor CRP, D-dimers. Continue Decadron, baricitinib and remdesivir. Continue nebs and guaifenesis for symptomatic relief Ensure Compact TID Encourage Prone position as tolerated Pt is requiring BIPAP watch respiratory status (2) Community acquired pneumonia: Code(s): J18.9 - Pneumonia, unspecified organism Status: Acute Assessment and Plan: Currently on IV antibiotic. Continue Zosyn IV (3) Hypertension: Code(s): I10 - Essential (primary) hypertension Status: Chronic Assessment and Plan: Continue with Norvasc, clonidine, losartan, and hydroxyzine Bp is well controlled; currently patient is acutely ill; target blood pressure 140/90. (4) Gastroesophageal reflux disease: Code(s): K21.9 - Gastro-esophageal reflux disease without esophagitis Status: Chronic Assessment and Plan: Continue Pantoprazole PO (5) COPD with asthma: Code(s): J44.9 - Chronic obstructive pulmonary disease, unspecified Status: Chronic Assessment and Plan: Continue with inhalers. 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 Plan is to continue with IV antibiotic steroid and remdesivir. Follow closely with labs and x-ray. Support for the oxygen as tolerated 01/16/2022 Patient is improving gradually. Still requiring intermittent use of BiPAP. No new overnight complaints. Plan is to continue with oxygen use, BiPAP use and medication. 01/17/2022 Patient looks much better today. Mild shortness of breath no chest pain Plan is to continue to use intermittent BiPAP and wean off oxygen as tolerated. 01/18/2022 Patient is improving gradually. Still requiring intermittent use of BiPAP. No new overnight complaints. Plan is to continue with oxygen use, BiPAP use and medication. 01/19/2022 Patient is improving gradually. She did not required BiPAP overnight. No new overnight complaints. Plan is to continue with oxygen use, BiPAP use PRN. 01/20/2022 Patient is improving gradually. She did not required BiPAP overnight. No new overnight complaints. Plan is to continue with oxygen use, BiPAP use PRN. 01/21/2022 Patient is improving gradually. She did not required BiPAP overnight. No new overnight complaints. Plan is to continue with oxygen use, BiPAP use PRN. 01/22/2022 Patient is improving gradually. She did not required BiPAP overnight. No new overnight complaints. Plan is to continue with HFNC oxygen use, BiPAP use PRN. Subjective Date/time seen: 01/23/22 09:00 S: Patient was seen examined at the bedside. Her breathing was getting better. She has no new respiratory symptoms. FiO2 dec
[2022-01-23] MEDS: amLODIPine BESYLATE 5 MG TABLET PO (09:24)
[2022-01-23] MEDS: APIXABAN 5 MG TABLET PO ×2 (09:24→20:55)
[2022-01-23] MEDS: cloNIDine HCL 0.2 MG TABLET PO ×3 (09:24→17:22)
[2022-01-23] MEDS: PANTOPRAZOLE 40 MG TABLET PO (09:24)
--- NOTE | 2022-01-23 09:24 | PM.PNPUL ---
Progress Note: A&P Assessment and Plan (1) Pneumonia due to COVID-19 virus: Code(s): U07.1 - COVID-19; J12.82 - Pneumonia due to coronavirus disease 2019 Status: Acute Assessment and Plan: Patient with acute hypoxemic respiratory failure related to COVID 19 pneumonia. Patient was vaccinated with 2 doses plus a booster. Respiratory status seems to have improved over the last several days. there is improvement of lung auscultatory findings, gas exchange and inflammatory indices. CRP also trending down. Procalcitonin level not elevated. Last Chest x-ray shows significant clearing compared to the x-ray from about 1 week ago. Continue with same treatment. encourage out of bed to chair. (2) History of asthma: Code(s): Z87.09 - Personal history of other diseases of the respiratory system Status: Acute Subjective Date/time seen: 01/23/22 09:24 Patient stated breathing was getting better. She has no new respiratory symptoms. FiO2 decreased down to 0.3, remaining on high-flow nasal cannula. Review of Systems Review of Systems: All systems reviewed & are unremarkable except as noted in HPI and below (the history and physical examination) Exam Narrative: GENERAL APPEARANCE: Well developed, well nourished, alert and cooperative, and appears to be in less respiratory distress while on supplemental oxygen. CHEST: Normal AP diameter and normal contour without any kyphoscoliosis. LUNGS: Rare crackles at bases posteriorly with no wheezing CARDIAC: regular rate and rhythm without any murmurs, gallops, rubs. EXTREMITIES: No cyanosis, clubbing or edema. NEUROLOGIC: Alert and oriented x 3. Normal affect. Objective Data Vital Signs Vital Signs: Vital Signs - 24 hr 01/22/22 09:41 01/22/22 10:00 01/22/22 12:00 Temperature 37.2 C Pulse Rate 92 90 95 Respiratory Rate 26 H 24 H Blood Pressure 138/78 Pulse Oximetry 91 01/22/22 13:40 01/22/22 13:41 01/22/22 14:00 Temperature Pulse Rate 86 81 Respiratory Rate 20 Blood Pressure Pulse Oximetry 99 01/22/22 16:00 01/22/22 18:00 01/22/22 20:00 Temperature 36.8 C 36.4 C L Pulse Rate 75 72 71 Respiratory Rate 20 24 H Blood Pressure 103/68 109/62 Pulse Oximetry 96 99 01/22/22 20:38 01/22/22 22:00 01/22/22 23:30 Temperature 36.1 C L Pulse Rate 66 64 80 Respiratory Rate 20 12 Blood Pressure 134/72 Pulse Oximetry 98 95 01/23/22 00:00 01/23/22 02:00 01/23/22 02:05 Temperature Pulse Rate 75 98 68 Respiratory Rate 20 Blood Pressure Pulse Oximetry 95 01/23/22 04:00 01/23/22 05:05 01/23/22 06:00 Temperature 36.4 C Pulse Rate 109 H 68 76 Respiratory Rate 22 H 20 Blood Pressure 92/59 L Pulse Oximetry 99 95 01/23/22 08:00 01/23/22 08:31 Temperature 36.4 C L Pulse Rate 70 79 Respiratory Rate 20 20 Blood Pressure 133/58 L Pulse Oximetry 98 98 Intake/Output Intake/Output: Intake & Output 01/20/22 01/21/22 01/22/22 01/23/22 23:59 23:59 23:59 23:59 Intake Total 1820 1240 1420 Output Total 1750 2050 1450 500 Balance 70 -810 -30 -500 Meds/Results Medications: Active Medications Generic Name Dose Route Start Last Admin Trade Name Freq PRN Reason Stop Dose Admin Albuterol 2 puff 01/09/22 20:00 01/23/22 08:30 Albuterol Sulfate (*Sp) Inhaler INHALATION 2 puff Q6HRT LINDA Administration Amlodipine Besylate 5 mg 01/10/22 09:00 01/22/22 10:03 Amlodipine Besylate 5 Mg Tablet PO 5 mg DAILY LINDA Administration Apixaban 5 mg 01/09/22 21:00 01/22/22 20:17 Apixaban 5 Mg Tablet PO 5 mg Q12HR LINDA Administration Artificial Tears 1 drop 01/21/22 11:19 01/21/22 14:09 Artificial Tears Ophth Soln 15 Ml Bottle EACH EYE 1 drop QID PRN Administration Dry Eye(s) Clonidine HCl 0.2 mg 01/09/22 19:10 01/22/22 18:25 Clonidine Hcl 0.2 Mg Tablet PO Not Given TID LINDA Fluticasone Propionate 2 spray 01/10/22 09:00 01/22/22 10:04
[2022-01-23] MEDS: FLUTICASONE PROPIONATE 0.05% NA SPR 16 GM BTL (*BKC) 2 SPRAY NASAL (09:28)
[2022-01-23] MEDS: polyethylene glycoL 3350 17 GM POWD.PACK PO (12:59)
--- NOTE | 2022-01-23 14:53 | PCCCNOTE ---
On 01/23/22, the student, Kait Henderson, provided care and completed [facility] documentation on this patient. I have reviewed the student's documentation and agree with the findings.
[2022-01-23] MEDS: MELATONIN 5 MG TABLET 10 MG PO (20:56)
[2022-01-23] MEDS: LOSARTAN POTASSIUM 100 MG TABLET PO (20:56)
[2022-01-24] VITALS (11 sets, daily range): BP systolic 99–136; BP diastolic 54–79; PULSE 73–112; RESP 18–24; TEMP 36.2–37.2; O2SAT 90–98
[2022-01-24] MEDS: ALBUTEROL SULFATE (*SP) INHALER 2 PUFF INHALATION ×4 (02:03→19:41)
[2022-01-24] MEDS: guaiFENesin/DEXTROMETHORPHAN 10 ML UDC PO ×2 (03:15→20:17)
[2022-01-24] MEDS: hydrOXYzine pamoate 25 MG CAPSULE 50 MG PO ×3 (03:15→20:17)
[2022-01-24] MEDS: CENTRAL LINE FLUSH 10 ML IV PUSH ×3 (06:17→21:24)
[2022-01-24] MEDS: polyethylene glycoL 3350 17 GM POWD.PACK PO (07:56)
[2022-01-24] MEDS: amLODIPine BESYLATE 5 MG TABLET PO (07:56)
[2022-01-24] MEDS: APIXABAN 5 MG TABLET PO ×2 (07:57→20:17)
[2022-01-24] MEDS: cloNIDine HCL 0.2 MG TABLET PO ×3 (07:57→17:47)
[2022-01-24] MEDS: PANTOPRAZOLE 40 MG TABLET PO (07:57)
[2022-01-24] MEDS: LORazepam (*CRX) 0.5 MG TABLET PO ×3 (07:58→21:40)
[2022-01-24] MEDS: FLUTICASONE PROPIONATE 0.05% NA SPR 16 GM BTL (*BKC) 2 SPRAY NASAL (08:00)
[2022-01-24] MEDS: ARTIFICIAL TEARS OPHTH SOLN 15 ML BOTTLE 1 DROP EACH EYE (08:01)
--- NOTE | 2022-01-24 12:31 | PM.PNPUL ---
Progress Note: A&P Assessment and Plan (1) Pneumonia due to COVID-19 virus: Code(s): U07.1 - COVID-19; J12.82 - Pneumonia due to coronavirus disease 2019 Status: Acute Assessment and Plan: Patient with acute hypoxemic respiratory failure related to COVID 19 pneumonia. Patient was vaccinated with 2 doses plus a booster. Respiratory status seems to have improved over the last several days. there is improvement of lung auscultatory findings, gas exchange and inflammatory indices. CRP also trending down. Last Chest x-ray shows significant clearing compared to the x-ray from about 1 week ago. Continue with same treatment. encourage out of bed to chair. Continue to monitor respiratory status and titrate oxygen as tolerated. Will sign off. Please call with any new respiratory issues. (2) History of asthma: Code(s): Z87.09 - Personal history of other diseases of the respiratory system Status: Acute Subjective Date/time seen: 01/24/22 12:31 patient doing better. FiO2 has decreased. Currently she is on nasal cannula 3.5 liters/minute. She has no new respiratory symptoms. She has some shortness of breath when getting out of bed. She has no cough or wheezing. Has completed treatment with remdesivir dexamethasone and baricitinib. Last chest x-ray showed partial clearing of infiltrates. Review of Systems Review of Systems: All systems reviewed & are unremarkable except as noted in HPI and below (the history and physical examination) Exam Narrative: GENERAL APPEARANCE: Well developed, well nourished, alert and cooperative, and appears to be in less respiratory distress while on supplemental oxygen. CHEST: Normal AP diameter and normal contour without any kyphoscoliosis. LUNGS: Rare crackles at bases posteriorly with no wheezing CARDIAC: regular rate and rhythm without any murmurs, gallops, rubs. EXTREMITIES: No cyanosis, clubbing or edema. NEUROLOGIC: Alert and oriented x 3. Normal affect. Objective Data Vital Signs Vital Signs: Vital Signs - 24 hr 01/23/22 14:00 01/23/22 14:35 01/23/22 16:00 Temperature 36.8 C Pulse Rate 75 78 85 Respiratory Rate 20 22 H Blood Pressure 142/78 H Pulse Oximetry 98 97 01/23/22 18:00 01/23/22 19:51 01/23/22 20:00 Temperature 36.4 C Pulse Rate 93 82 70 Respiratory Rate 20 Blood Pressure 112/67 Pulse Oximetry 98 01/23/22 20:37 01/23/22 22:00 01/24/22 00:00 Temperature 36.4 C L Pulse Rate 72 74 Respiratory Rate 22 H Blood Pressure 99/54 L Pulse Oximetry 95 97 01/24/22 02:00 01/24/22 04:00 01/24/22 06:00 Temperature 36.8 C Pulse Rate 73 86 86 Respiratory Rate 22 H Blood Pressure 117/69 Pulse Oximetry 96 01/24/22 08:00 01/24/22 08:47 01/24/22 10:00 Temperature 37.2 C Pulse Rate 102 H 112 H 87 Respiratory Rate 24 H Blood Pressure 136/79 Pulse Oximetry 93 90 Intake/Output Intake/Output: Intake & Output 01/21/22 01/22/22 01/23/22 01/24/22 23:59 23:59 23:59 23:59 Intake Total 1240 1420 720 880 Output Total 2050 1450 2450 950 Balance - -70 Meds/Results Medications: Active Medications Generic Name Dose Route Start Last Admin Trade Name Freq PRN Reason Stop Dose Admin Albuterol 2 puff 01/09/22 20:00 01/24/22 08:47 Albuterol Sulfate (*Sp) Inhaler INHALATION 2 puff Q6HRT LINDA Administration Amlodipine Besylate 5 mg 01/10/22 09:00 01/24/22 07:56 Amlodipine Besylate 5 Mg Tablet PO 5 mg DAILY LINDA Administration Apixaban 5 mg 01/09/22 21:00 01/24/22 07:57 Apixaban 5 Mg Tablet PO 5 mg Q12HR LINDA Administration Artificial Tears 1 drop 01/21/22 11:19 01/24/22 08:01 Artificial Tears Ophth Soln 15 Ml Bottle EACH EYE 1 drop QID PRN Administration Dry Eye(s) Clonidine HCl 0.2 mg 01/09/22 19:10 01/24/22 07:57 Clonidine Hcl 0.2 Mg Tablet PO 0.2 mg TID LINDA Administration Fluticasone Propionate 2 spray 01/10/22 0
[2022-01-24] MEDS: ACETAMINOPHEN 325 MG TABLET 650 MG PO (12:50)
--- NOTE | 2022-01-24 18:16 | PM.IMPN ---
Progress Note: A&P Assessment and Plan (1) Pneumonia due to COVID-19 virus: Code(s): U07.1 - COVID-19; J12.82 - Pneumonia due to coronavirus disease 2019 Status: Acute Assessment and Plan: Acute hypoxic respiratory failure, improving now on nasal canula at 3 liters. Patient remains significantly symptomatic with activity. She has been hospitalized for 2 weeks and is severely deconditioned. We will try to engage her with physical therapy. For COVID19 pneumonia, she has completed a 10- day course of remdesivir.. She continues to require high flow and intermittent non-rebreather support with activity; she is slowly being weaned. Using BiPAP as needed with sleep, 11/05, FiO2 100%. Recent CTA 01/15/22 showed findings consistent with severe COVID pneumonia. repeat CBc this afternoon. DVT prophylaxis provided by Eliquis. Continue nebs and guaifenesis for symptomatic relief Ensure Compact TID. Encourage Prone position as tolerated. Patient requires a DNR status. Given history of depression, a psychiatry consult is requested as the patient is very anxious and may be experiencing a relapse of her depression. (2) Community acquired pneumonia: Code(s): J18.9 - Pneumonia, unspecified organism Status: Acute Assessment and Plan: Currently on IV antibiotic. Continue Zosyn IV (3) Hypertension: Code(s): I10 - Essential (primary) hypertension Status: Chronic Assessment and Plan: Continue with Norvasc, clonidine, losartan, and hydroxyzine. Clonidine dose was reduced. Bp is well controlled; currently patient is acutely ill; target blood pressure 140/90. (4) Gastroesophageal reflux disease: Code(s): K21.9 - Gastro-esophageal reflux disease without esophagitis Status: Chronic Assessment and Plan: Continue Pantoprazole PO (5) COPD with asthma: Code(s): J44.9 - Chronic obstructive pulmonary disease, unspecified Status: Chronic Assessment and Plan: Continue with inhalers. No evidence of exacerbation currently. 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 Plan is to continue with IV antibiotic steroid and remdesivir. Follow closely with labs and x-ray. Support for the oxygen as tolerated 01/16/2022 Patient is improving gradually. Still requiring intermittent use of BiPAP. No new overnight complaints. Plan is to continue with oxygen use, BiPAP use and medication. 01/17/2022 Patient looks much better today. Mild shortness of breath no chest pain Plan is to continue to use intermittent BiPAP and wean off oxygen as tolerated. 01/18/2022 Patient is improving gradually. Still requiring intermittent use of BiPAP. No new overnight complaints. Plan is to continue with oxygen use, BiPAP use and medication. 01/19/2022 Patient is improving gradually. She did not required BiPAP overnight. No new overnight complaints. Plan is to continue with oxygen use, BiPAP use PRN. 01/20/2022 Patient is improving gradually. She did not required BiPAP overnight. No new overnight complaints. Plan is to continue with oxygen use, BiPAP use PRN. 01/21/2022 Patient is improving gradually. She did not required BiPAP overnight. No new overnight complaints. Plan is to continue with oxygen use, BiPAP use PRN. 01/22/2022 Patient is improving gradually. She did not required BiPAP overnight. No new overnight complaints. Plan is to continue with HFNC oxygen use, BiPAP use PRN. 01/23/2022 is improving gradually. She did not required BiPAP overnight. No ne
[2022-01-24] MEDS: LOSARTAN POTASSIUM 100 MG TABLET PO (20:17)
[2022-01-24] MEDS: MELATONIN 5 MG TABLET 10 MG PO (20:17)
[2022-01-24 20:21] LABS: Basophils Percent Auto 0.2 % (0.2-1.2); Eosinophils Absolute Auto 0.6 K/mm3 (0-0.3); Eosinophils Percent Auto 4.2 % (0-4.4); Hematocrit 28.2 % (37.0-47.0); Hemoglobin 9.5 g/dL (12.0-15.0); Immature Granulocyte Absolute 0.34 K/mm3 (0.00-0.031); Immature Granulocyte Percent A 2.3 % (0-0.5); Lymphocytes Absolute Auto 2.09 K/mm3 (0.9-3.2); Lymphocytes Percent Auto 14.3 % (18.3-44.2); Mean Corpuscular HGB Conc 33.7 g/dl (32-36); Mean Corpuscular Volume 92.2 fl (80-100); Mean Platelet Volume 8.9 fl (7.4-10.4); Monocytes Absolute Auto 0.7 K/mm3 (0.1-0.6); Monocytes Percent Auto 4.4 % (2.6-8.5); Neutrophils Absolute Auto 10.9 K/mm3 (1.3-6.7); Neutrophils Percent Auto 74.6 % (45.5-73.1); Platelet Count Result 320 k/mm3 (150-375); Red Blood Count 3.06 M/mm3 (4.2-5.4); Red Cell Distribution Width 14.9 % (11.5-14.5); White Blood Count 14.6 K/mm3 (4.5-10.0)
[2022-01-24 20:31] LABS: Anion Gap 3 mmol/L (8-16); Blood Urea Nitrogen 9 mg/dL (7-17); Calcium 8.3 mg/dL (8.4-10.2); Carbon Dioxide 24 mmol/L (22-30); Chloride 102 mmol/L (98-107); Estimated CRCL calculation 97 ml/min; Estimated Glomerular Filt Rate > 60; Glucose 112 mg/dL (65-110); Potassium 3.6 mmol/L (3.4-5.0); Sodium 129 mmol/L (137-145)
[2022-01-24] MEDS: GABAPENTIN 100 MG CAPSULE PO (21:24)
[2022-01-24] MEDS: cloNIDine HCL 0.1 MG TABLET PO (21:24)
[2022-01-24] MEDS: traZODone HCL 25 MG TABLET PO (21:24)
[2022-01-25] VITALS (11 sets, daily range): BP systolic 100–144; BP diastolic 63–79; PULSE 74–97; RESP 18–22; TEMP 36.2–37.8; O2SAT 92–96
[2022-01-25] MEDS: ALBUTEROL SULFATE (*SP) INHALER 2 PUFF INHALATION ×4 (02:00→21:40)
[2022-01-25] MEDS: hydrOXYzine pamoate 25 MG CAPSULE 50 MG PO ×3 (02:12→15:25)
[2022-01-25 02:17] LABS: Basophils Percent Auto 0.1 % (0.2-1.2); Eosinophils Absolute Auto 0.7 K/mm3 (0-0.3); Hematocrit 27.8 % (37.0-47.0); Hemoglobin 9.4 g/dL (12.0-15.0); Immature Granulocyte Absolute 0.28 K/mm3 (0.00-0.031); Immature Granulocyte Percent A 2.1 % (0-0.5); Lymphocytes Absolute Auto 1.84 K/mm3 (0.9-3.2); Lymphocytes Percent Auto 13.6 % (18.3-44.2); Mean Corpuscular HGB Conc 33.8 g/dl (32-36); Mean Corpuscular Hemoglobin 31.3 pg (26-34); Mean Corpuscular Volume 92.7 fl (80-100); Monocytes Absolute Auto 0.6 K/mm3 (0.1-0.6); Monocytes Percent Auto 4.2 % (2.6-8.5); Neutrophils Absolute Auto 10.1 K/mm3 (1.3-6.7); Platelet Count Result 357 k/mm3 (150-375); White Blood Count 13.5 K/mm3 (4.5-10.0)
[2022-01-25 02:27] LABS: Alanine Aminotransferase 88 U/L (4-35); Alkaline Phosphatase 166 U/L (38-126); Anion Gap 4 mmol/L (8-16); Aspartate Amino Transferase 68 U/L (14-36); Bilirubin,Total 0.4 mg/dL (0.2-1.3); Blood Urea Nitrogen 7 mg/dL (7-17); Calcium 8.2 mg/dL (8.4-10.2); Carbon Dioxide 25 mmol/L (22-30); Chloride 104 mmol/L (98-107); Estimated CRCL calculation 118 ml/min; Estimated Glomerular Filt Rate > 60; Glucose 104 mg/dL (65-110); Phosphorus 4.2 mg/dL (2.5-4.5); Potassium 3.9 mmol/L (3.4-5.0); Sodium 133 mmol/L (137-145)
[2022-01-25 02:55] LABS: Vitamin D 25 Hydroxy 15.5 ng/mL
[2022-01-25 03:12] LABS: Iron 37 ug/dL (37-170)
[2022-01-25 03:21] LABS: Percent Iron Saturation 15 % (20-50)
[2022-01-25] MEDS: cloNIDine HCL 0.1 MG TABLET PO ×3 (05:23→21:25)
[2022-01-25] MEDS: CENTRAL LINE FLUSH 10 ML IV PUSH ×3 (05:24→21:25)
[2022-01-25] MEDS: LORazepam (*CRX) 0.5 MG TABLET PO ×2 (05:26→12:39)
[2022-01-25] MEDS: amLODIPine BESYLATE 5 MG TABLET PO (08:58)
[2022-01-25] MEDS: APIXABAN 5 MG TABLET PO ×2 (08:59→21:25)
[2022-01-25] MEDS: PANTOPRAZOLE 40 MG TABLET PO (09:00)
[2022-01-25] MEDS: FLUTICASONE PROPIONATE 0.05% NA SPR 16 GM BTL (*BKC) 2 SPRAY NASAL (09:00)
[2022-01-25] MEDS: GABAPENTIN 100 MG CAPSULE PO ×3 (09:00→17:13)
[2022-01-25] MEDS: polyethylene glycoL 3350 17 GM POWD.PACK PO (09:04)
--- NOTE | 2022-01-25 10:02 | PM.IMPN ---
Progress Note: A&P Assessment and Plan (1) Pneumonia due to COVID-19 virus: Code(s): U07.1 - COVID-19; J12.82 - Pneumonia due to coronavirus disease 2018 Status: Acute Assessment and Plan: Acute hypoxic respiratory failure, improving now on nasal canula at 3 liters. Patient remains significantly symptomatic with minimal activity. She has been hospitalized for 2 weeks and is severely deconditioned. We will try to engage her with physical therapy. For COVID19 pneumonia, she has completed a 10- day course of remdesivir.. She continues to require higher O2 with activity; she is slowly being weaned. No rcent BIPAP needs. Recent CTA 01/15/22 showed findings consistent with severe COVID pneumonia. Repeat CBc shows improvement of leucocytosis. DVT prophylaxis provided by Eliquis. Continue nebs and guaifenesis for symptomatic relief Ensure Compact TID. Encourage Prone position as tolerated. Patient requires a DNR status. Given history of depression, a psychiatry consult is requested as the patient is very anxious and may be experiencing a relapse of her depression. Patient will remain a full code until a psychiatric evaluation determines her current motivation for a change of code status. (2) Community acquired pneumonia: Code(s): J18.9 - Pneumonia, unspecified organism Status: Acute Assessment and Plan: Currently on IV antibiotic. Continue Zosyn IV (3) Hypertension: Code(s): I10 - Essential (primary) hypertension Status: Chronic Assessment and Plan: Continue with Norvasc, clonidine, losartan, and hydroxyzine. Clonidine dose will be sweaned then stopped. Bp is well controlled; currently patient is acutely ill; target blood pressure 140/90. (4) Gastroesophageal reflux disease: Code(s): K21.9 - Gastro-esophageal reflux disease without esophagitis Status: Chronic Assessment and Plan: Continue Pantoprazole PO (5) COPD with asthma: Code(s): J44.9 - Chronic obstructive pulmonary disease, unspecified Status: Chronic Assessment and Plan: Continue with inhalers. No evidence of exacerbation currently. 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 Plan is to continue with IV antibiotic steroid and remdesivir. Follow closely with labs and x-ray. Support for the oxygen as tolerated 01/16/2022 Patient is improving gradually. Still requiring intermittent use of BiPAP. No new overnight complaints. Plan is to continue with oxygen use, BiPAP use and medication. 01/17/2022 Patient looks much better today. Mild shortness of breath no chest pain Plan is to continue to use intermittent BiPAP and wean off oxygen as tolerated. 01/18/2022 Patient is improving gradually. Still requiring intermittent use of BiPAP. No new overnight complaints. Plan is to continue with oxygen use, BiPAP use and medication. 01/19/2022 Patient is improving gradually. She did not required BiPAP overnight. No new overnight complaints. Plan is to continue with oxygen use, BiPAP use PRN. 01/20/2022 Patient is improving gradually. She did not required BiPAP overnight. No new overnight complaints. Plan is to continue with oxygen use, BiPAP use PRN. 01/21/2022 Patient is improving gradually. She did not required BiPAP overnight. No new overnight complaints. Plan is to continue with oxygen use, BiPAP use PRN. 01/22/2022 Patient is improving gradually. She did not required BiPAP overnight. No new overnight complaints. Plan is to continue with HFNC oxygen us
[2022-01-25 12:18] LABS: Glucose Point of Care 103 mg/dl (65-105)
[2022-01-25] MEDS: ACETAMINOPHEN 325 MG TABLET 650 MG PO (12:39)
[2022-01-25] MEDS: IRON SUCROSE COMPLEX 100 MG in SODIUM CHLORIDE 0.9% IV 50 ML 220 MG IVPB (14:35)
--- NOTE | 2022-01-25 16:00 | PM.EVENT ---
Event Note Event Note Event Note: Patient requests to be a DNR. Given her history of depression and andxiety, her young age, and her clinical improvement, a psychiatric consult was requested. I had a long phone conversation with Dr Leach, whi requests that I determine if the patient is suicidal. In this setting patient 's code status was kept a full code, until a further determination of her current state of mind can be performed by psych. This was discussed with Dr Leach, who agreed that the code status cannot be changed at this time.
--- NOTE | 2022-01-25 20:52 | WPDCNPSYCH ---
HPI Data of Consult Date/Time: 01/25/22 20:52 Requesting Physician: Chele Flood MD Primary Care Provider: Chele Lala Consult Narrative Narrative: Diagnoses: Generalized anxiety disorder Persistent depressive disorder Elevated liver function test History of pancreatitis 2020 by patient's self report Appendectomy fall 2020 by patient report Hyponatremia with sodium of 113 being worked up by solar panel installer in [place], [place] by considering [place] by patient's self report Differential diagnoses: Major depressive disorder, recurrent, moderate Adjustment disorder with mixed emotional features Cognitive disorder, not otherwise specified Mood and cognitive deficits related to COVID Plan: Zoloft 50mg p.o. q.a.m. for her mixed anxious depressive syndrome Medical evaluation for contributions to her mixed anxious depressive syndrome Recommend care management conduct mini-mental status exam to screen for a possible cognitive disorder Reason for hospitalization: Patient is a 51-year-old lady admitted to [facility] Medicine service for COVID pneumonia approximately 2 weeks ago Reason for consult: Patient is a 51-year-old lady whose consultation for depression and anxiety in the context of having requested her code status to be changed to DNR despite her healthcare improving significantly and being only 51 years old and being full code until now. Review of systems: Patient reports that she has shakes and she gets short of breath upon trivial exertion. She also finds it difficult to catch her breath afterwards. She also reports that she feels quite weak and that it feels as if there are ants in her legs. Mental status exam: Patient has a self-care deficit. She was writing down notes and has not tablet by her bedside. She also had an advanced directive form that she has been trying to fill out but seems to be quite confused about its contents and what it is all about. Posture is recumbent. Psychomotor activity is with mild tremors. Speech is normal in rate, volume, and is goal-directed. Mood is: ?Anxious. ? Her affect is anxious. She denies suicidal or homicidal ideation. She denies any auditory or visual hallucinations or paranoia. She has no objective signs of psychosis. Her thought process is logical, sequential, and goal-directed. She has no self talk. She is not responding to inner stimuli. She is below average in intelligence, fund of knowledge, insight and judgment. Medical evaluation: CBC on 01/25/2022: WBCs are 13.5; hemoglobin is 9.4 CMP on 01/25/2022: Sodium is 133; creatinine is 0.40; BUN is 7; calcium is 8.2; AST is 68; ALT is 88; alkaline phosphatase is 166 Vitamin D3 level is low at 15.5 TSH is mildly elevated at 4.830 D-dimer is less than 0.22 (less than 0.48) Anemia panel: Iron is 37; TIBC is 242; % sat is 15; ferritin is 163 Hemoglobin A1c is 5.2 Urine analysis: Not done Urine drug screen: Not done Blood alcohol level: Not done Urine culture and sensitivity: No growth MRSA: Negative Blood cultures: No growth x2 Chest x-ray on 01/22/2022): Consistent with pneumonia versus pulmonary edema History of present illness: The patient, her physician, her nurse, and her chart have served as historians. The patient was a pleasant and cooperative historian. According to the patient's physician the patient has been having a great deal of anxiety. She also has some depressive symptoms. She has recently made a request to be made DNR in the face of getting better. The patient's nurse reports that she has been using Ativan 0.5mg p.o. t.i.d. p.r.n. as a scheduled med. She watches the clock in every 8hours is requesting an additional Ativan. Please note she has a history of being a recovering alcoholic. The patient also has been writing everything down. She also was up all night last night repeating the same questions over and over again. She seems to have some difficulty und
[2022-01-25] MEDS: traZODone HCL 25 MG TABLET PO (21:25)
[2022-01-25] MEDS: MELATONIN 5 MG TABLET 10 MG PO (21:25)
[2022-01-25] MEDS: guaiFENesin/DEXTROMETHORPHAN 10 ML UDC PO (21:30)
[2022-01-25 22:38] LABS: Cholesterol 148 mg/dL (0-200); HDL Direct 41 mg/dL; Lipase 63 U/L (23-300); Triglycerides 145 mg/dL (<150)
[2022-01-25 22:49] LABS: LDL Cholesterol Direct 87 mg/dL
[2022-01-25 23:19] LABS: HIV 1/2 Ab P24 Ag Result Negative (Negative)
[2022-01-25 23:38] LABS: Hepatitis B Surface Antigen Negative (Negative)
[2022-01-25 23:44] LABS: HAV RESULT Negative (Negative); Hepatitis B Core IgM Result Negative (Negative)
[2022-01-25 23:56] LABS: Hepatitis C Virus Antibody Negative (Negative)
[2022-01-26] VITALS (7 sets, daily range): BP systolic 113–154; BP diastolic 56–90; PULSE 88–96; RESP 18–20; TEMP 36.1–36.6; O2SAT 91–98
[2022-01-26] MEDS: hydrOXYzine pamoate 25 MG CAPSULE 50 MG PO ×3 (01:01→20:18)
[2022-01-26] MEDS: ALBUTEROL SULFATE (*SP) INHALER 2 PUFF INHALATION ×4 (02:33→21:50)
[2022-01-26 04:29] LABS: Basophils Percent Auto 0.2 % (0.2-1.2); Eosinophils Absolute Auto 0.8 K/mm3 (0-0.3); Eosinophils Percent Auto 5.3 % (0-4.4); Hemoglobin 9.9 g/dL (12.0-15.0); Immature Granulocyte Absolute 0.29 K/mm3 (0.00-0.031); Immature Granulocyte Percent A 1.9 % (0-0.5); Lymphocytes Absolute Auto 1.97 K/mm3 (0.9-3.2); Lymphocytes Percent Auto 13.1 % (18.3-44.2); Mean Corpuscular HGB Conc 34.1 g/dl (32-36); Mean Corpuscular Hemoglobin 31.5 pg (26-34); Mean Corpuscular Volume 92.4 fl (80-100); Mean Platelet Volume 8.9 fl (7.4-10.4); Monocytes Absolute Auto 0.8 K/mm3 (0.1-0.6); Neutrophils Absolute Auto 11.2 K/mm3 (1.3-6.7); Neutrophils Percent Auto 74.5 % (45.5-73.1); Platelet Count Result 356 k/mm3 (150-375); Red Blood Count 3.14 M/mm3 (4.2-5.4); Red Cell Distribution Width 15.1 % (11.5-14.5); White Blood Count 15.1 K/mm3 (4.5-10.0)
[2022-01-26 04:39] LABS: Alanine Aminotransferase 71 U/L (4-35); Albumin Level 3.2 g/dL (3.5-5.1); Alkaline Phosphatase 173 U/L (38-126); Anion Gap 6 mmol/L (8-16); Aspartate Amino Transferase 48 U/L (14-36); Bilirubin,Total 0.4 mg/dL (0.2-1.3); Blood Urea Nitrogen 6 mg/dL (7-17); Calcium 8.6 mg/dL (8.4-10.2); Carbon Dioxide 24 mmol/L (22-30); Chloride 102 mmol/L (98-107); Estimated CRCL calculation 134 ml/min; Estimated Glomerular Filt Rate > 60; Glucose 136 mg/dL (65-110); Potassium 3.6 mmol/L (3.4-5.0); Sodium 132 mmol/L (137-145)
[2022-01-26] MEDS: cloNIDine HCL 0.1 MG TABLET PO ×3 (05:23→20:18)
[2022-01-26] MEDS: CENTRAL LINE FLUSH 10 ML IV PUSH ×3 (05:23→20:24)
[2022-01-26 06:51] LABS: Free T4 Free Thyroxine Reflex 1.42 ng/dL (0.78-2.19)
[2022-01-26 07:40] LABS: Total Triiodothyronine (T3) 1.01 NG/ML (0.97-1.69)
[2022-01-26 08:04] LABS: Rapid Plasma Reagin Non-Reactive (NonReactive)
[2022-01-26] MEDS: APIXABAN 5 MG TABLET PO ×2 (08:56→20:18)
[2022-01-26] MEDS: amLODIPine BESYLATE 5 MG TABLET PO (08:56)
[2022-01-26] MEDS: PANTOPRAZOLE 40 MG TABLET PO (08:56)
[2022-01-26] MEDS: GABAPENTIN 100 MG CAPSULE PO ×3 (08:56→17:20)
[2022-01-26] MEDS: SERTRALINE HCL 50 MG TABLET PO (08:56)
[2022-01-26] MEDS: FLUTICASONE PROPIONATE 0.05% NA SPR 16 GM BTL (*BKC) 2 SPRAY NASAL (08:57)
[2022-01-26] MEDS: polyethylene glycoL 3350 17 GM POWD.PACK PO (09:04)
[2022-01-26] MEDS: guaiFENesin/DEXTROMETHORPHAN 10 ML UDC PO ×2 (09:04→20:17)
--- NOTE | 2022-01-26 10:38 | PCNFU ---
Nutrition Follow-Up Complete: Inadequate oral intake related to COVID as evidenced by reported decreased appetite Goal: Pt to meet 75% of estimated nutritional needs Pt is progressing towards goal. No new goal at this time. Pt current nutrition is Regular diet and dietary supplements Last recorded weight is 72.9 kg, down 0.5kg since last reported weight on 01/25/22. Recommend re-weighing prior to d/c. Bowel Motility: +BM reported 01/25/22 Labs Reviewed: Hgb 9.9, Hct 29.0, Alb 3.2, Na 132, AST 48, ALT 71, BUN 6, Cr 0.40, Glu 136, ALP 173, TSH 5.090 Meds Noted: Albuterol, Norvasc, Eliquis, Catapres, Flonase, Gabapentin, Robitussin, Vistaril, Protonix, Miralax, Zoloft Skin: No new skin breakdown at this time. WNL Additional Notes: Current nutrition is a regular diet and dietary supplements of Ensure Compact TID w/meals providing an additional 220kcal and 9g of protein to increase caloric intake. Reported intake is 90% and 100% x4. Pt has been weaned to nasal canula with no recent BiPAP needs. Agree with diet orders at this time. Will continue to follow. Will monitor labs, medications, wt, and reported intake every 7 days
[2022-01-26] MEDS: LORazepam (*CRX) 0.5 MG TABLET PO ×2 (12:05→23:25)
[2022-01-26] MEDS: ACETAMINOPHEN 325 MG TABLET 650 MG PO (12:08)
[2022-01-26] MEDS: traZODone HCL 25 MG TABLET PO (20:18)
[2022-01-26] MEDS: LOSARTAN POTASSIUM 100 MG TABLET PO (20:18)
[2022-01-26] MEDS: MELATONIN 5 MG TABLET 10 MG PO (20:18)
[2022-01-27] VITALS (8 sets, daily range): BP systolic 138–151; BP diastolic 73–90; PULSE 85–99; RESP 18–20; TEMP 36.4–36.6; O2SAT 94–100
[2022-01-27] MEDS: ALBUTEROL SULFATE (*SP) INHALER 2 PUFF INHALATION ×4 (02:45→20:38)
[2022-01-27] MEDS: hydrOXYzine pamoate 25 MG CAPSULE 50 MG PO ×3 (03:24→21:31)
[2022-01-27] MEDS: cloNIDine HCL 0.1 MG TABLET PO ×3 (05:03→21:30)
[2022-01-27] MEDS: CENTRAL LINE FLUSH 10 ML IV PUSH ×3 (05:03→21:32)
[2022-01-27 05:20] LABS: Basophils Percent Auto 0.3 % (0.2-1.2); Eosinophils Absolute Auto 0.8 K/mm3 (0-0.3); Hematocrit 28.9 % (37.0-47.0); Hemoglobin 9.6 g/dL (12.0-15.0); Immature Granulocyte Absolute 0.23 K/mm3 (0.00-0.031); Immature Granulocyte Percent A 1.7 % (0-0.5); Lymphocytes Absolute Auto 1.59 K/mm3 (0.9-3.2); Lymphocytes Percent Auto 11.6 % (18.3-44.2); Mean Corpuscular HGB Conc 33.2 g/dl (32-36); Mean Corpuscular Hemoglobin 30.8 pg (26-34); Mean Corpuscular Volume 92.6 fl (80-100); Mean Platelet Volume 9.1 fl (7.4-10.4); Monocytes Absolute Auto 0.6 K/mm3 (0.1-0.6); Monocytes Percent Auto 4.5 % (2.6-8.5); Neutrophils Absolute Auto 10.4 K/mm3 (1.3-6.7); Neutrophils Percent Auto 75.9 % (45.5-73.1); Platelet Count Result 326 k/mm3 (150-375); Red Blood Count 3.12 M/mm3 (4.2-5.4); White Blood Count 13.7 K/mm3 (4.5-10.0)
[2022-01-27] MEDS: APIXABAN 5 MG TABLET PO ×2 (08:47→21:29)
[2022-01-27] MEDS: GABAPENTIN 100 MG CAPSULE PO ×3 (08:47→17:15)
[2022-01-27] MEDS: SERTRALINE HCL 50 MG TABLET PO (08:47)
[2022-01-27] MEDS: amLODIPine BESYLATE 5 MG TABLET PO (08:47)
[2022-01-27] MEDS: FLUTICASONE PROPIONATE 0.05% NA SPR 16 GM BTL (*BKC) 2 SPRAY NASAL (08:47)
[2022-01-27] MEDS: PANTOPRAZOLE 40 MG TABLET PO (08:48)
[2022-01-27] MEDS: guaiFENesin/DEXTROMETHORPHAN 10 ML UDC PO (08:52)
[2022-01-27] MEDS: ACETAMINOPHEN 325 MG TABLET 650 MG PO ×2 (08:52→23:05)
[2022-01-27] MEDS: LORazepam (*CRX) 0.5 MG TABLET PO ×2 (10:11→23:05)
[2022-01-27] MEDS: polyethylene glycoL 3350 17 GM POWD.PACK PO (10:12)
[2022-01-27 12:40] LABS: Anion Gap 5 mmol/L (8-16); Blood Urea Nitrogen 6 mg/dL (7-17); Calcium 8.5 mg/dL (8.4-10.2); Carbon Dioxide 25 mmol/L (22-30); Chloride 101 mmol/L (98-107); Estimated CRCL calculation 134 ml/min; Estimated Glomerular Filt Rate > 60; Glucose 106 mg/dL (65-110); Potassium 3.8 mmol/L (3.4-5.0); Sodium 131 mmol/L (137-145)
[2022-01-27] MEDS: SUMAtriptan SUCCINATE 25 MG TABLET 50 MG PO (17:41)
[2022-01-27] MEDS: MELATONIN 5 MG TABLET 10 MG PO (21:29)
[2022-01-27] MEDS: LOSARTAN POTASSIUM 100 MG TABLET PO (21:29)
[2022-01-27] MEDS: traZODone HCL 25 MG TABLET PO (21:29)
[2022-01-28] VITALS (7 sets, daily range): BP systolic 117–127; BP diastolic 65–84; PULSE 82–102; RESP 20–24; TEMP 36.2–36.8; O2SAT 92–100
[2022-01-28] MEDS: ALBUTEROL SULFATE (*SP) INHALER 2 PUFF INHALATION ×4 (01:49→20:02)
[2022-01-28] MEDS: hydrOXYzine pamoate 25 MG CAPSULE 50 MG PO ×2 (03:14→10:47)
[2022-01-28] MEDS: cloNIDine HCL 0.1 MG TABLET PO ×3 (05:36→21:33)
[2022-01-28] MEDS: CENTRAL LINE FLUSH 10 ML IV PUSH ×3 (05:36→21:32)
[2022-01-28] MEDS: ACETAMINOPHEN 325 MG TABLET 650 MG PO ×2 (06:20→21:33)
[2022-01-28] MEDS: LORazepam (*CRX) 0.5 MG TABLET PO ×3 (06:20→21:32)
[2022-01-28] MEDS: polyethylene glycoL 3350 17 GM POWD.PACK PO (08:56)
[2022-01-28] MEDS: APIXABAN 5 MG TABLET PO ×2 (08:56→21:33)
[2022-01-28] MEDS: amLODIPine BESYLATE 5 MG TABLET PO (08:56)
[2022-01-28] MEDS: GABAPENTIN 100 MG CAPSULE PO ×3 (08:57→17:23)
[2022-01-28] MEDS: PANTOPRAZOLE 40 MG TABLET PO (08:57)
[2022-01-28] MEDS: FLUTICASONE PROPIONATE 0.05% NA SPR 16 GM BTL (*BKC) 2 SPRAY NASAL (08:57)
[2022-01-28] MEDS: SERTRALINE HCL 50 MG TABLET PO (08:57)
[2022-01-28] MEDS: SUMAtriptan SUCCINATE 25 MG TABLET 50 MG PO ×2 (11:40→15:20)
[2022-01-28] MEDS: ONDANSETRON INJ 4 MG/2 ML VIAL IV PUSH ×2 (12:27→18:49)
[2022-01-28 18:30] LABS: DHEA-Sulfate 38 mcg/dL (19-231)
[2022-01-28] MEDS: guaiFENesin/DEXTROMETHORPHAN 10 ML UDC PO (21:32)
[2022-01-28] MEDS: MELATONIN 5 MG TABLET 10 MG PO (21:32)
[2022-01-28] MEDS: LOSARTAN POTASSIUM 100 MG TABLET PO (21:33)
[2022-01-28] MEDS: traZODone HCL 25 MG TABLET PO (21:33)
[2022-01-29] MEDS: ALBUTEROL SULFATE (*SP) INHALER 2 PUFF INHALATION ×4 (01:58→20:05)
[2022-01-29] MEDS: ACETAMINOPHEN 325 MG TABLET 650 MG PO (02:57)
[2022-01-29] MEDS: ONDANSETRON INJ 4 MG/2 ML VIAL IV PUSH ×3 (02:58→14:24)
[2022-01-29] MEDS: LORazepam (*CRX) 0.5 MG TABLET PO ×4 (03:02→22:36)
[2022-01-29 05:45] VITALS: BP 109/74; PULSE 79; RESP 24; TEMP 36; O2SAT 100
[2022-01-29] MEDS: cloNIDine HCL 0.1 MG TABLET PO ×3 (05:52→21:29)
[2022-01-29] MEDS: hydrOXYzine pamoate 25 MG CAPSULE 50 MG PO ×2 (05:52→12:31)
[2022-01-29] MEDS: CENTRAL LINE FLUSH 10 ML IV PUSH ×3 (05:53→21:44)
--- NOTE | 2022-01-29 07:38 | PCRCNOTE ---
HOME O2 EVAL ATTEMPTED YESTERDAY. PT'S SAO2 DROPPED TO 86% ON 6L HIGH FLOW TRANSFERRING FROM COMMODE. RN NOTIFIED.
[2022-01-29 08:00] VITALS: O2SAT 98
[2022-01-29 08:29] VITALS: O2SAT 97
[2022-01-29] MEDS: polyethylene glycoL 3350 17 GM POWD.PACK PO (08:44)
[2022-01-29] MEDS: amLODIPine BESYLATE 5 MG TABLET PO (08:45)
[2022-01-29] MEDS: APIXABAN 5 MG TABLET PO ×2 (08:45→21:29)
[2022-01-29] MEDS: PANTOPRAZOLE 40 MG TABLET PO (08:45)
[2022-01-29] MEDS: SERTRALINE HCL 50 MG TABLET PO (08:45)
[2022-01-29] MEDS: FLUTICASONE PROPIONATE 0.05% NA SPR 16 GM BTL (*BKC) 2 SPRAY NASAL (08:46)
[2022-01-29] MEDS: GABAPENTIN 100 MG CAPSULE PO ×3 (08:46→17:00)
[2022-01-29] MEDS: SUMAtriptan SUCCINATE 25 MG TABLET 50 MG PO ×4 (12:31→21:28)
[2022-01-29] MEDS: guaiFENesin/DEXTROMETHORPHAN 10 ML UDC PO ×2 (13:19→22:36)
[2022-01-29 14:00] VITALS: BP 101/70; PULSE 84; RESP 14; TEMP 36.6; O2SAT 99
[2022-01-29 20:03] VITALS: O2SAT 92
--- NOTE | 2022-01-29 21:23 | PCRCNOTE ---
Pt. no longer needs BIPAP support, pt. has not worn since 01/18/22 and does not wear BIPAP at home. Machine no longer in the room
[2022-01-29] MEDS: traZODone HCL 25 MG TABLET PO (21:29)
[2022-01-29] MEDS: MELATONIN 5 MG TABLET 10 MG PO (21:29)
[2022-01-29] MEDS: LOSARTAN POTASSIUM 100 MG TABLET PO (21:29)
[2022-01-29 21:54] VITALS: BP 141/71; PULSE 97; RESP 20; TEMP 36.4; O2SAT 97
[2022-01-30] MEDS: ALBUTEROL SULFATE (*SP) INHALER 2 PUFF INHALATION ×4 (02:17→19:33)
[2022-01-30] MEDS: ACETAMINOPHEN 325 MG TABLET 650 MG PO (04:28)
[2022-01-30] MEDS: LORazepam (*CRX) 0.5 MG TABLET PO ×4 (04:29→22:48)
[2022-01-30 06:00] VITALS: BP 142/98; PULSE 103; RESP 20; TEMP 36.6; O2SAT 93
[2022-01-30] MEDS: CENTRAL LINE FLUSH 10 ML IV PUSH ×3 (06:07→21:13)
[2022-01-30] MEDS: cloNIDine HCL 0.1 MG TABLET PO ×3 (06:07→21:02)
[2022-01-30 08:05] VITALS: O2SAT 93
[2022-01-30] MEDS: APIXABAN 5 MG TABLET PO ×2 (08:16→21:03)
[2022-01-30] MEDS: amLODIPine BESYLATE 5 MG TABLET PO (08:16)
[2022-01-30] MEDS: PANTOPRAZOLE 40 MG TABLET PO (08:16)
[2022-01-30] MEDS: SERTRALINE HCL 50 MG TABLET PO (08:17)
[2022-01-30] MEDS: polyethylene glycoL 3350 17 GM POWD.PACK PO (08:17)
[2022-01-30] MEDS: GABAPENTIN 100 MG CAPSULE PO ×3 (08:17→17:10)
[2022-01-30] MEDS: FLUTICASONE PROPIONATE 0.05% NA SPR 16 GM BTL (*BKC) 2 SPRAY NASAL (08:18)
[2022-01-30] MEDS: hydrOXYzine pamoate 25 MG CAPSULE 50 MG PO ×2 (08:20→17:10)
[2022-01-30] MEDS: SUMAtriptan SUCCINATE 25 MG TABLET 50 MG PO ×4 (09:46→21:03)
[2022-01-30] MEDS: ONDANSETRON INJ 4 MG/2 ML VIAL IV PUSH ×3 (10:38→22:48)
[2022-01-30 14:00] VITALS: BP 148/66; PULSE 101; RESP 20; TEMP 36.5; O2SAT 97
[2022-01-30 19:15] VITALS: PULSE 98; RESP 18; O2SAT 97
[2022-01-30] MEDS: guaiFENesin/DEXTROMETHORPHAN 10 ML UDC PO (21:01)
[2022-01-30] MEDS: MELATONIN 5 MG TABLET 10 MG PO (21:02)
[2022-01-30] MEDS: traZODone HCL 25 MG TABLET PO (21:03)
[2022-01-30] MEDS: LOSARTAN POTASSIUM 100 MG TABLET PO (21:03)
[2022-01-30 21:40] VITALS: BP 137/90; PULSE 98; RESP 18; TEMP 36.4; O2SAT 95
[2022-01-31] VITALS (9 sets, daily range): BP systolic 122–136; BP diastolic 72–87; PULSE 85–96; RESP 16–20; TEMP 36.2–36.7; O2SAT 94–98
[2022-01-31] MEDS: ALBUTEROL SULFATE (*SP) INHALER 2 PUFF INHALATION ×4 (01:32→20:45)
[2022-01-31] MEDS: SUMAtriptan SUCCINATE 25 MG TABLET 50 MG PO ×4 (06:01→18:20)
[2022-01-31] MEDS: LORazepam (*CRX) 0.5 MG TABLET PO ×3 (06:01→18:20)
[2022-01-31] MEDS: cloNIDine HCL 0.1 MG TABLET PO ×3 (06:01→20:40)
[2022-01-31] MEDS: CENTRAL LINE FLUSH 10 ML IV PUSH ×3 (06:02→20:43)
[2022-01-31] MEDS: ONDANSETRON INJ 4 MG/2 ML VIAL IV PUSH ×3 (06:41→18:20)
[2022-01-31] MEDS: APIXABAN 5 MG TABLET PO ×2 (08:41→20:41)
[2022-01-31] MEDS: GABAPENTIN 100 MG CAPSULE PO ×3 (08:41→17:23)
[2022-01-31] MEDS: polyethylene glycoL 3350 17 GM POWD.PACK PO (08:41)
[2022-01-31] MEDS: hydrOXYzine pamoate 25 MG CAPSULE 50 MG PO ×3 (08:41→20:49)
[2022-01-31] MEDS: amLODIPine BESYLATE 5 MG TABLET PO (08:41)
[2022-01-31] MEDS: PANTOPRAZOLE 40 MG TABLET PO (08:41)
[2022-01-31] MEDS: SERTRALINE HCL 50 MG TABLET PO (08:42)
[2022-01-31] MEDS: FLUTICASONE PROPIONATE 0.05% NA SPR 16 GM BTL (*BKC) 2 SPRAY NASAL (08:46)
[2022-01-31] MEDS: TOLNAFTATE 1% POWDER 45 GM BTL 1 APPLIC TOPICAL ×2 (08:47→20:43)
--- NOTE | 2022-01-31 12:51 | PC.NURSE ---
During rounds, the patient noted that she needs extra headache medication on the floor in the event that a migraine comes on suddenly. This nurse verified that extra doses are in medication cart and are in the Pyxis as needed.
[2022-01-31] MEDS: ACETAMINOPHEN 325 MG TABLET 650 MG PO ×2 (14:27→20:50)
[2022-01-31] MEDS: traZODone HCL 25 MG TABLET PO (20:41)
[2022-01-31] MEDS: MELATONIN 5 MG TABLET 10 MG PO (20:41)
[2022-01-31] MEDS: LOSARTAN POTASSIUM 100 MG TABLET PO (20:42)
[2022-01-31] MEDS: MICONAZOLE NITRATE 2% VAGINAL CREAM 45 GM TUBE 1 APPFUL VAGINAL (20:42)
[2022-01-31] MEDS: guaiFENesin/DEXTROMETHORPHAN 10 ML UDC PO (20:56)
[2022-02-01] MEDS: ACETAMINOPHEN 325 MG TABLET 650 MG PO ×3 (01:58→22:17)
[2022-02-01] MEDS: LORazepam (*CRX) 0.5 MG TABLET PO ×4 (01:59→22:16)
[2022-02-01 02:45] VITALS: PULSE 96; O2SAT 96
[2022-02-01] MEDS: ALBUTEROL SULFATE (*SP) INHALER 2 PUFF INHALATION ×4 (02:45→19:50)
[2022-02-01 05:53] LABS: Hematocrit 28.9 % (37.0-47.0); Hemoglobin 9.7 g/dL (12.0-15.0); Mean Corpuscular HGB Conc 33.6 g/dl (32-36); Mean Corpuscular Hemoglobin 30.6 pg (26-34); Mean Corpuscular Volume 91.2 fl (80-100); Mean Platelet Volume 8.9 fl (7.4-10.4); Platelet Count Result 156 k/mm3 (150-375); Red Blood Count 3.17 M/mm3 (4.2-5.4); Red Cell Distribution Width 14.5 % (11.5-14.5); White Blood Count 8.8 K/mm3 (4.5-10.0)
[2022-02-01 06:00] VITALS: BP 143/71; PULSE 82; RESP 20; TEMP 36.6; O2SAT 98
[2022-02-01 06:02] LABS: Anion Gap 6 mmol/L (8-16); Blood Urea Nitrogen 4 mg/dL (7-17); Calcium 8.4 mg/dL (8.4-10.2); Carbon Dioxide 25 mmol/L (22-30); Chloride 103 mmol/L (98-107); Estimated CRCL calculation 97 ml/min; Estimated Glomerular Filt Rate > 60; Glucose 95 mg/dL (65-110); Potassium 3.8 mmol/L (3.4-5.0); Sodium 134 mmol/L (137-145)
[2022-02-01] MEDS: CENTRAL LINE FLUSH 10 ML IV PUSH ×3 (06:07→20:48)
[2022-02-01] MEDS: cloNIDine HCL 0.1 MG TABLET PO ×3 (06:07→20:46)
[2022-02-01 08:10] VITALS: PULSE 87; O2SAT 96
[2022-02-01] MEDS: FLUTICASONE PROPIONATE 0.05% NA SPR 16 GM BTL (*BKC) 2 SPRAY NASAL (08:27)
[2022-02-01] MEDS: hydrOXYzine pamoate 25 MG CAPSULE 50 MG PO ×3 (08:27→22:18)
[2022-02-01] MEDS: GABAPENTIN 100 MG CAPSULE PO ×3 (08:28→16:21)
[2022-02-01] MEDS: ONDANSETRON INJ 4 MG/2 ML VIAL IV PUSH ×2 (08:28→16:18)
[2022-02-01] MEDS: PANTOPRAZOLE 40 MG TABLET PO (08:28)
[2022-02-01] MEDS: SUMAtriptan SUCCINATE 25 MG TABLET 50 MG PO ×4 (08:28→22:18)
[2022-02-01] MEDS: APIXABAN 5 MG TABLET PO ×2 (08:29→20:46)
[2022-02-01] MEDS: SERTRALINE HCL 50 MG TABLET PO (08:29)
[2022-02-01] MEDS: amLODIPine BESYLATE 5 MG TABLET PO (08:29)
[2022-02-01] MEDS: polyethylene glycoL 3350 17 GM POWD.PACK PO (08:29)
[2022-02-01] MEDS: TOLNAFTATE 1% POWDER 45 GM BTL 1 APPLIC TOPICAL ×2 (08:30→20:46)
[2022-02-01] MEDS: guaiFENesin/DEXTROMETHORPHAN 10 ML UDC PO ×2 (09:51→20:45)
[2022-02-01 14:00] VITALS: BP 138/77; PULSE 89; RESP 14; TEMP 36.3; O2SAT 96
[2022-02-01 19:50] VITALS: PULSE 88; RESP 20; O2SAT 96
[2022-02-01] MEDS: MELATONIN 5 MG TABLET 10 MG PO (20:45)
[2022-02-01] MEDS: traZODone HCL 25 MG TABLET PO (20:45)
[2022-02-01] MEDS: LOSARTAN POTASSIUM 100 MG TABLET PO (20:45)
[2022-02-01] MEDS: MICONAZOLE NITRATE 2% VAGINAL CREAM 45 GM TUBE 1 APPFUL VAGINAL (20:47)
[2022-02-01 22:00] VITALS: BP 135/86; PULSE 91; RESP 20; TEMP 36.2; O2SAT 96
[2022-02-02] VITALS (12 sets, daily range): BP systolic 124–138; BP diastolic 78–81; PULSE 78–102; RESP 18–20; TEMP 36.1–36.2; O2SAT 86–100
[2022-02-02] MEDS: ALBUTEROL SULFATE (*SP) INHALER 2 PUFF INHALATION ×3 (01:55→14:32)
[2022-02-02] MEDS: ACETAMINOPHEN 325 MG TABLET 650 MG PO ×3 (02:23→16:33)
[2022-02-02] MEDS: LORazepam (*CRX) 0.5 MG TABLET PO ×2 (06:24→13:16)
[2022-02-02] MEDS: SUMAtriptan SUCCINATE 25 MG TABLET 50 MG PO (06:25)
[2022-02-02] MEDS: hydrOXYzine pamoate 25 MG CAPSULE 50 MG PO ×2 (06:27→14:20)
[2022-02-02] MEDS: ONDANSETRON INJ 4 MG/2 ML VIAL IV PUSH ×2 (06:27→13:16)
[2022-02-02] MEDS: PANTOPRAZOLE 40 MG TABLET PO (08:05)
[2022-02-02] MEDS: cloNIDine HCL 0.1 MG TABLET PO ×2 (08:05→13:17)
[2022-02-02] MEDS: amLODIPine BESYLATE 5 MG TABLET PO (08:06)
[2022-02-02] MEDS: GABAPENTIN 100 MG CAPSULE PO ×2 (08:06→13:17)
[2022-02-02] MEDS: SERTRALINE HCL 50 MG TABLET PO (08:06)
[2022-02-02] MEDS: APIXABAN 5 MG TABLET PO (08:07)
[2022-02-02] MEDS: CENTRAL LINE FLUSH 10 ML IV PUSH ×2 (08:07→14:19)
[2022-02-02] MEDS: polyethylene glycoL 3350 17 GM POWD.PACK PO (08:09)
[2022-02-02] MEDS: FLUTICASONE PROPIONATE 0.05% NA SPR 16 GM BTL (*BKC) 2 SPRAY NASAL (08:10)
[2022-02-02] MEDS: TOLNAFTATE 1% POWDER 45 GM BTL 1 APPLIC TOPICAL (08:10)
--- NOTE | 2022-02-02 10:09 | PCNFU ---
Nutrition Follow-Up Complete: Inadequate oral intake related to COVID as evidenced by reported decreased appetite Goal: Pt to meet 75% of estimated nutritional needs Pt is progressing towards goal. Continue with current goal at this time. Pt current nutrition is regular diet and dietary supplements Last recorded weight is 73.5 kg, up 2.4kg from wt reported on admission. Bowel Motility: +BM reported 02/02/22 Labs Reviewed: Hgb 9.7, Hct 28.9, Na 134, BUN 4, Cr 0.50 Meds Noted: Tylenol, Albuterol, Norvasc, Eliquis, Catapres, Gabapentin, Vistaril, Ativan, Zofran, Protonix, Miralax, Zoloft, Sodium Chloride, Imitrex Skin: lower perineum rash, posterior dorsal sacrum rash Additional Notes: Unable to visit with pt due to following COVID precautions. Current nutrition is a regular diet with dietary supplements of Ensure Compact TID providing an additional 220kcal and 9g of protein to increase caloric intake. Reported intake is 100% x5. Pt remains on nasal cannula. Agree with diet orders at this time. Will continue to follow. Will monitor labs, medications, wt, and reported intake every 7 days
--- NOTE | 2022-02-02 11:53 | HOMEO2EVAL ---
Evaluation was performed at [facility] Home Oxygen Evaluation RC: Home Oxygen (O2) Evaluation Start: 02/02/22 09:10 Freq: ONCE Status: Active Protocol: RPE Activity Type Activity Date Activity User E-Sign Co-Sign Detail Recorded Client Recorded Date Recorded By Document 02/02/22 11:00 [email or web address] 02/02/22 11:52 PKH Document 02/02/22 11:05 [email or web address] 02/02/22 11:52 PKH Document 02/02/22 11:10 [email or web address] [email or web address] 02/02/22 11:52 PKH Document 02/02/22 11:15 [email or web address] [email or web address] 02/02/22 11:52 PKH Document 02/02/22 11:20 [email or web address] [email or web address] 02/02/22 11:52 PKH Document 02/02/22 11:30 [email or web address] 02/02/22 11:52 PKH Document 02/02/22 11:40 [email or web address] [email or web address] 02/02/22 11:52 PKH 02/02/22 02/02/22 02/02/22 11:00 11:05 11:10 Home O2 Evaluation Test Phase Resting Resting Resting Oxygen Delivery Room Air Nasal Cannula Nasal Cannula Oxygen Flow Rate (L/min) 1 2 Pulse Oximetry (90-100 %) 86 L 87 L 91 Pulse Rate (60-100 beats/min) 90 93 92 Home Oxygen Evaluation Comments Treatment Charges O2 Evaluation - Inpatient 02/02/22 02/02/22 02/02/22 11:15 11:20 11:30 Home O2 Evaluation Test Phase Exercise Exercise Exercise Oxygen Delivery Nasal Cannula Oxygen Flow Rate (L/min) 2 4 5 Pulse Oximetry (90-100 %) 86 L 86 L 87 L Pulse Rate (60-100 beats/min) 102 H 100 97 Home Oxygen Evaluation Comments Treatment Charges 02/02/22 11:40 Home O2 Evaluation Test Phase Exercise Oxygen Delivery Nasal Cannula Oxygen Flow Rate (L/min) 6 Pulse Oximetry (90-100 %) 90 Pulse Rate (60-100 beats/min) 102 H Home Oxygen Evaluation Comments PATIENTS REQUIRES 2LITERS WITH REST AND 6 LITERS WITH ACTIVITY. Treatment Charges
--- NOTE | 2022-02-02 12:09 | PCRCNOTE ---
HOME EVALUATION COMPLETE. PATIENT REQUIRES 2 LITERS AT REST AND 6 LITERS WITH ACTIVITY. [facility] [phone] WILL BRING TANKS TO HOSPITAL FOR DISCHARGE. RN INFORMED.
--- NOTE | 2022-02-02 13:03 | PM.DS ---
DS: Admitting Diagnosis Discharge Date 02/02/2022 Admitting Diagnosis COVID pneumonia with hypoxia. DS: Discharge Diagnosis Discharge Diagnosis (1) Pneumonia due to COVID-19 virus: Code(s): U07.1 - COVID-19; J12.82 - Pneumonia due to coronavirus disease 2018 Status: Acute Assessment and Plan: Acute hypoxic respiratory failure, improving now on nasal canula at 3 liters. Patient remains significantly symptomatic with minimal activity. She has been hospitalized for 2 weeks and is severely deconditioned. We will try to engage her with physical therapy. For COVID19 pneumonia, she has completed a 10- day course of remdesivir.. She continues to require higher O2 with activity; she is slowly being weaned. No rcent BIPAP needs. Recent CTA 01/15/22 showed findings consistent with severe COVID pneumonia. Repeat CBc shows improvement of leucocytosis. DVT prophylaxis provided by Eliquis. Continue nebs and guaifenesis for symptomatic relief Ensure Compact TID. Encourage Prone position as tolerated. Patient requires a DNR status. Given history of depression, a psychiatry consult is requested as the patient is very anxious and may be experiencing a relapse of her depression. Patient will remain a full code until a psychiatric evaluation determines her current motivation for a change of code status. Psych consulted On (2) Community acquired pneumonia: Code(s): J18.9 - Pneumonia, unspecified organism Status: Acute Assessment and Plan: Currently on IV antibiotic. Continue Zosyn IV (3) Hypertension: Code(s): I10 - Essential (primary) hypertension Status: Chronic Assessment and Plan: Continue with Norvasc, clonidine, losartan, and hydroxyzine. Clonidine dose will be sweaned then stopped. Bp is well controlled; currently patient is acutely ill; target blood pressure 140/90. (4) Gastroesophageal reflux disease: Code(s): K21.9 - Gastro-esophageal reflux disease without esophagitis Status: Chronic Assessment and Plan: Continue Pantoprazole PO (5) COPD with asthma: Code(s): J44.9 - Chronic obstructive pulmonary disease, unspecified Status: Chronic Assessment and Plan: Continue with inhalers. No evidence of exacerbation currently. (6) Migraines: Code(s): G43.909 - Migraine, unspecified, not intractable, without status migrainosus Status: Chronic Assessment and Plan: Abortive therapy prn (7) Thrombosis of upper extremity: Code(s): I82.609 - Acute embolism and thrombosis of unspecified veins of unspecified upper extremity Status: Chronic Assessment and Plan: Previously dx'd Continue Eliquis DS: Summary Hospital Course Reason for hospitalization: This is a 51 year old female with a history of htn. The patient stated that she was tested positve for covid approximately 5 days ago and she was sent home from [facility] that day with azithromycin, steroids, and will finish send with codeine. The patient stated that she felt like she was getting better on these medication and then yesterday she became more short of breath she stated she could not catch her breath. So she decided to go to [facility]. The patient initially was placed on a BiPAP with the settings of 14/7. They attempted to wean her down to 10/4 on the BiPAP. And the patient was wanting to eat and drink so they placed her on Airvo at 60%. The patient was tolerating that well. However it was reported that they do not have any ICU and they feel that the patient may continue to get worse. She was given Zosyn for due to a white count of 19.5. Her chest x-ray was read as bilateral infiltrates. Patient also had a slight bump in her troponins of 0.060, 0.090, and 0.108. Patient's white count as noted above was 19.5 today however yesterday was 35.5. Patient's INR is 2.0. The patient is currently on Eliquis for a history of blood clots to her lef
[2022-02-02] MEDS: TOBRAMYCIN SULFATE 0.3% OPHTH SOLN 5 ML 1 DROP EACH EYE (13:15)
[2022-02-02] MEDS: guaiFENesin/DEXTROMETHORPHAN 10 ML UDC PO (13:16)
== END 2022-02-02 16:45 | disposition home health service (06) | DRG 137 ==
LOC: ANHIMU 01-23 12:51 → ANH3MEDSUR 01-24 16:53 → ANHIMU 02-03 12:44
PROVIDERS: Family Medicine; Internal Medicine; Internal Medicine Pulmonary Disease; Nurse Practitioner; Psychiatry & Neurology Psychiatry; Admitting Provider Internal Medicine; Visit Provider Family Medicine
DX: U07.1 COVID-19 (principal); J12.82 Pneumonia due to coronavirus disease 2019; J96.01 Acute respiratory failure with hypoxia; I10 Essential (primary) hypertension; J18.9 Pneumonia, unspecified organism; Z79.01 Long term (current) use of anticoagulants; J44.9 Chronic obstructive pulmonary disease, unspecified; K21.9 Gastro-esophageal reflux disease without esophagitis; Z87.891 Personal history of nicotine dependence; Z88.2 Allergy status to sulfonamides; G43.909 Migraine, unspecified, not intractable, without status migrainosus; I82.609 Acute embolism and thrombosis of unspecified veins of unspecified upper extremity; D50.9 Iron deficiency anemia, unspecified; G25.81 Restless legs syndrome; F41.1 Generalized anxiety disorder; E87.1 Hypo-osmolality and hyponatremia; F34.1 Dysthymic disorder
CPT/HCPCS: 36415; 36569; 36600; 71045; 71275; 80048; 80053; 80061; 80074; 81003; 82306; 82565; 82607; 82627; 82728; 82746; 82805; 82948; 83036; 83540; 83550; 83605; 83615; 83690; 83735; 83880; 84100; 84145; 84439; 84443; 84450; 84460; 84480; 85025; 85027; 85380; 85610; 86140; 86592; 86703; 87040; 87081; 87086; 93971; 94002; 94003; 94618; 94640; 97110; 97116; 97162; 97530; A9270; C1751; C9113; G0432; J1100; J1756; J2060; J2405; J2543; J3475; Q9967